=== PATIENT | female | born 1935 | race Caucasian/White ===

== ENCOUNTER 2023-09-09 14:28 | Inpatient (IN) | payer MEDICARE, OTHER ==
[~2023-09-09] VITALS: Ht 157.5 cm; Wt 79.4 kg
[2023-09-09] MEDS ORDERED: FERR325T18 PO (15:27)
[2023-09-09] MEDS ORDERED: SENN-109 PO (15:27)
[2023-09-09] MEDS ORDERED: NALT50TA PO (15:27)
[2023-09-09] MEDS ORDERED: CALC-890 PO (15:27)
[2023-09-09] MEDS ORDERED: CYAN500T8 PO (15:27)
[2023-09-09] MEDS ORDERED: APIX5TAB PO (15:27)
[2023-09-09] MEDS ORDERED: ACET325T38 PO (15:27)
[2023-09-09] MEDS ORDERED: POLY17PO6 PO (15:27)
[2023-09-09] MEDS ORDERED: POTA-160 PO (15:27)
[2023-09-09] MEDS ORDERED: VALS320T15 PO (15:27)
[2023-09-09] MEDS ORDERED: PHEN1SUP92 RC (15:27)
[2023-09-09] MEDS ORDERED: UBID10CA5 PO (15:27)
[2023-09-09] MEDS ORDERED: DILT180C67 PO (15:27)
[2023-09-09] MEDS ORDERED: CETI10TA17 PO (15:27)
[2023-09-09] MEDS ORDERED: FAMO20TA5 PO (15:27)
[2023-09-09] MEDS ORDERED: OMAL150S SQ (15:27)
[2023-09-09] MEDS ORDERED: DAPA10TA PO (15:27)
[2023-09-09] MEDS ORDERED: TR1C15 TP (15:27)
[2023-09-09] MEDS ORDERED: ALLO100T PO (15:27)
[2023-09-09] MEDS ORDERED: OXYC5TAB PO (15:27)
[2023-09-09 16:40] VITALS: BP 123/65
[2023-09-09] MEDS ORDERED: ONDANSETRON 4 MG ORAL DISSOLVE TABLET PO PRN (17:30)
[2023-09-09] MEDS ORDERED: DOCUSATE SODIUM 100 MG CAPSULE PO PRN (17:30)
[2023-09-09] MEDS ORDERED: PHENYLEPHRINE RC PRN (17:30)
[2023-09-09] MEDS ORDERED: [UNRECOGNIZED DRUG - OTHER] RC PRN (17:30)
[2023-09-09] MEDS ORDERED: ALPRAZolam 0.25 MG TABLET PO PRN (17:30)
[2023-09-09] MEDS ORDERED: LOPERAMIDE 2 MG CAPSULE PO PRN (17:30)
[2023-09-09] MEDS ORDERED: ACETAMINOPHEN 325 MG TABLET PO PRN (17:30)
[2023-09-09] MEDS ORDERED: Sodium Phosphate/Sodium Biphosphate ADULT enema PR PRN (17:30)
[2023-09-09] MEDS ORDERED: CALCIUM CARBONATE 500 MG CHEW TABLET PO PRN (17:30)
[2023-09-09] MEDS ORDERED: BISACODYL 10 MG SUPPOSITORY PR PRN (17:30)
[2023-09-09] MEDS ORDERED: LACTULOSE SYRUP 10GM/15ML 30ML UDC PO PRN (17:30)
[2023-09-09] MEDS ORDERED: guaiFENesin/CODEINE 10ML UDC PO PRN (17:30)
[2023-09-09] MEDS ORDERED: OMALIZUMAB SQ SCH (17:30)
[2023-09-09] MEDS ORDERED: MELATONIN 3 MG TABLET PO PRN (17:30)
--- NOTE | 2023-09-09 17:30 | PM&R Post Admission Assessment ---
PM&R HP Date of Visit: Sep 09, 2023 Time of Visit: 17:30 History of Present Illness CC: C2 lateral mass fracture with left acetabular fracture sustained in a fall at [facility] HPI: This is an 87yoWF who presents from [facility] in [place] in need of aggressive rehab to regain independence. She sustained a fall at the [facility] when her walker was caught on the carpet but was able to eat her dinner without difficulty but then she as unable to ambulate the next day due to unable to left her left leg. ER assessed her to have a C2 lateral mass fracture and left acetabular fracture. NSG consulted and no surgical management required and [place] collar placed and no surgical option for the acetabular fracture. She lives in [place] at [place]. Currently her pain is controlled and her son is at the bedside. Her PCP is Dr Gonzalez and Supervisor [facility] Department is Dr Pacheco. PLOF using walker and independent. [facility] note: Follow-up &Outstanding Issues/Tests: 1. Follow-up withNeurosurgery in 2-3 weeks. 2. Follow up with the Orthopedic Service in 2-3 weeks. 3. Follow up with your primary care provider in 1-2 weeks. Hospital Course:[address] Radha singh is a [address] 87 [address] femaleArial 5b who was admitted to [facility] on [place] [address] and found to have a principle diagnosis of ground level fall.Her walker caught on carpet at the [facility] and she fell. She initially thought she had no injuries, and proceeded to eat at the restaurant. After leaving, she ambulated to the car, but was unable to get in due to the left hip pain.No LOC or other complaints of pain. She is on Eliquis for a "leaky" heart valve. Workup in the ED showed a C2 body fracture, and a left acetabular fracture. Problems Addressed (Secondary Diagnoses): [address] Active Hospital Problems Diagnosis ? (HFpEF) heart failure with preserved ejection fraction ? C2 cervical fracture ? Closed fracture of left acetabulum ? Ground-level fall ? Type 2 diabetes mellitus without complication, without long-term current use of insulin ? Stage 3b chronic kidney disease ? Hyperlipidemia ? Persistent atrial fibrillation ? Gout tophi ? Primary hypertension Resolved Hospital Problems No resolved problems to display. [address] Hospital Course: 09/08/2023: Admitted. Worked with PT/OT. Neurosurgery evaluated. 09/09/2023: No acute events overnight. Pt c/o neck pain and left hip pain. States current analgesic regimen helping with pain. Physical Exam: General appearance:alert, in no distress, appears stated age Eyes:conjunctivae/corneas clear. PERRL, EOM's intact. Lungs:clear to auscultation bilaterally, normal respiratory effort Heart:irregular rate and rhythm. No murmur. No JVD. Abdomen:Soft, non-tender. Bowel sounds normal. No masses, no organomegaly. Extremities:extremities normal, atraumatic, no cyanosis. 2+ pulses. Moves all extremities equally, no edema, redness or tenderness in the calves or thighs, normal strength, normal tone. 1+ edema BLE. Skin:Skin color, texture, turgor normal. No rashes or lesions Neurologic:Grossly normal [address] Assessment/Plan: Neuro:C2 lateral mass fracture with possible vertebral artery flap - right - Appreciate Neurosurgery assistance - continue [place] collar. Follow up with Neurosurgeryin 2-3 weeks - no indication for surgical intervention - Eliquis - resumedhome dose CV:Afib - on Eliquis and Diltiazem -continue meds Pulmonary:no current issues andmobilize, cough and deep breathe GI/Nutrition:diabetic diet :UOP adequate Fluids/electrolytes:Renal function stable. Electrolytes stable Heme:Anemia -stable. - no overt s/s blood loss - monitor Endo:DM type II -continue meds ID:Leukocytosis - reactionary - remains afebrile. Down-trendings Musculoskeletal:left acetabular fracture (low anterior column) and inferior pubic ramus fx - Evaluated by Ortho - no surgical intervention - weight bearing as tolerated - follow up with Stanley Perla, Orthopedic PA, in 2-3 weeks. MEDICATIONS Prior to admission: Prescriptions Prior to Admission [address] Medications Prior to Admission Medication Sig Dispense Refill Last Dose ? Eliquis 5 mg tablet TAKE 1 TABLET(5 MG) BY MOUTH TWICE DAILY 180 Tablet 3 ? ferrous sulfate 325 mg (65 mg iron) tablet Take 325 mg by mouth daily. ? oxyCODONE IR (OXY-IR) 5 mg Capsule Take by mouth every 6 hours as needed for Pain. ? PE-Shark Liver Oil-[place] Buttr (PREPARATION H) 0.25-3 % Suppository Insert 1 Suppository by rectum 4 times daily as needed for Hemorrhoids. ? metoprolol tartrate (LOPRESSOR) 25 mg tablet Take 1 Tablet (25 mg) by mouth 2 times daily. 180 Tablet 1 ? Xolair 150 mg/mL Syringe Inject 2 mL (300 mg) by subcutaneous injection every 30 days. 2 mL 1 ? cyanocobalamin (vit B-12) 500 mcg tablet Take 2,000 mcg by mouth daily. ? cetirizine 10 mg tablet Take 10 mg by mouth daily. ? naltrexone (DEPADE) 50 mg tablet TAKE 1/4 TABLET BY MOUTH DAILY ? valsartan (DIOVAN) 320 mg tablet TAKE 1 TABLET(320 MG) BY MOUTH DAILY 90 Tablet 1 ? blood sugar diagnostic (Blood Glucose Test) Strip Pt to test glucose 2 times a day. REQUEST FOR ONE TOUCH VERIO ORPLEASE DISPENSE WHAT INSURANCE WILL COVER 200 Strip 2 ? dapagliflozin (Farxiga) 10 mg Tablet Take 1 Tablet (10 mg) by mouth daily. 30 Tablet 0 ? triamcinolone acetonide (KENALOG) 0.1 % Cream Apply to affected area 2 times daily. 453 Gram 1 ? potassium chloride (KLOR-CON) 10 mEq Extended Release tablet Take 2 Tablets (20 mEq) by mouth daily with breakfast. 90 Tablet 3 ? coenzyme Q10 Capsule Take 10 mg by mouth daily. ? Blood-Glucose Meter PLEASE DISPENSE WHAT INSURANCE WILL COVER 1 Each 0 ? calcium citrate/vitamin D3 (CALCIUM CITRATE + D ORAL) Take 500 mg by mouth. ? lancets 30 gauge 1 [place] [facility]; Combo Route) route daily E11.65. 100 Each 1 [place] Discharge medications and new prescriptions: [place] Medication List START taking these medications foipytcrmcgra492 mg tablet Commonly known as: TYLENOL Take 2 Tablets (650 mg) by mouth every 6 hours. Signed by: Dr. Danny Malik MD Refills: 0 ikvbhazaioQ734 mg tablet Commonly known as: ZYLOPRIM Take 1 Tablet (100 mg) by mouth daily after breakfast. Start taking on: September 10, 2023 Signed by: Dr. Danny Malik MD Quantity: 15 Tablet Refills: 0 [id number] mg Controlled Delivery 24 hour capsule Commonly known as: CARDIZEM CD Take 1 Capsule (180 mg) by mouth daily. Start taking on: September 10, 2023 Signed by: Dr. Danny Malik MD Refills: 1 efdcgismzt28 mg tablet Commonly known as: PEPCID Take 1 Tablet (20 mg) by mouth daily. Start taking on: September 10, 2023 Signed by: Dr. Danny Malik MD Refills: 0 oxyCODONE5 mg tablet Commonly known as: ROXICODONE Take 1 Tablet (5 mg) by mouth every 4 hours as needed for Pain, Moderate. Max Daily Amount: 30 mg Signed by: Dr. Danny Malik MD Quantity: 20 Tablet Refills: 0 Replaces: oxyCODONE IR 5 mg Capsule polyethylene fpyrck56 gram Powder in Packet Commonly known as: MIRALAX Take 1 Packet (17 Grams) by mouth 1 time daily as needed for Constipation. Signed by: Dr. Danny Malik MD Refills: 0 sennosides-docusate sodium8.6-50 mg tablet Commonly known as: SENNA-S Take 1 Tablet by mouth 2 times daily. Signed by: Dr. Danny Malik MD Refills: 0 CONTINUE taking these medications blood sugar diagnosticStrip Commonly known as: Blood Glucose Test Pt to test glucose 2 times a day. REQUEST FOR ONE TOUCH VERIO ORPLEASE DISPENSE WHAT INSURANCE WILL COVER Signed by: Dr. José Gonzalez DO Quantity: 200 Strip Refills: 2 Blood-Glucose Meter PLEASE DISPENSE WHAT INSURANCE WILL COVER Signed by: Dr. José Gonzalez DO Quantity: 1 Each Refills: 0 CALCIUM CITRATE + D ORAL Take 500 mg by mouth. Refills: 0 btwscwnxac40 mg tablet Commonly known as: ZyrTEC Take 10 mg by mouth daily. Refills: 0 coenzyme F30Aozzegt Take 10 mg by mouth daily. Refills: 0 swvqffqylgoldo439 mcg tablet Commonly known as: VITAMIN B-12 Take 2,000 mcg by mouth daily. Refills: 0 dapagliflozin fobrbygjvuu26 mg Tablet Commonly known as: Farxiga Take 1 Tablet (10 mg) by mouth daily. Signed by: Radha Partida NP Quantity: 30 Tablet Refills: 0 Eliquis5 mg tablet TAKE 1 TABLET(5 MG) BY MOUTH TWICE DAILY Signed by: Dr. Cleveland Pacheco MD Quantity: 180 Tablet Refills: 3 Generic drug: apixaban ferrous otfviwf965 mg (65 mg iron) tablet Take 325 mg by mouth daily. Refills: 0 enwudzo89 gauge 1 Stick by [facility]Non-Drug; Combo Route) route daily E11.65. Signed by: Dr. José Gonzalez DO Quantity: 100 Each Refills: 1 scwvetxxwt86 mg tablet Commonly known as: DEPADE TAKE 1/4 TABLET BY MOUTH DAILY Refills: 0 PE-Shark Liver Oil-[place] Buttr0.25-3 % Suppository Commonly known as: PREPARATION H Insert 1 Suppository by rectum 4 times daily as needed for Hemorrhoids. Refills: 0 potassium mEq Extended Release tablet Commonly known as: KLOR-CON Take 2 Tablets (20 mEq) by mouth daily with breakfast. Signed by: Radha Partida NP Quantity: 90 Tablet Refills: 3 triamcinolone acetonide0.1 % Cream Commonly known as: KENALOG Apply to affected area 2 times daily. Signed by: Dr. José Gonzalez DO Quantity: 453 Gram Refills: 1 leepphbrk766 mg tablet Commonly known as: DIOVAN TAKE 1 TABLET(320 MG) BY MOUTH DAILY Signed by: Dr. José Gonzalez DO Quantity: 90 Tablet Refills: 1 Xaraka224 mg/mL Syringe Inject 2 mL (300 mg) by subcutaneous injection every 30 days. Signed by: Dr. José Gonzalez DO Quantity: 2 mL Refills: 1 Generic drug: omalizumab STOP taking these medications metoprolol arqcukgb35 mg tablet Commonly known as: LOPRESSOR oxyCODONE IR5 mg Capsule Commonly known as: OXY-IR Replaced by: oxyCODONE 5 mg tablet Where to Get Your Medications Information about where to get these medications is not yet available Ask your nurse or doctor about these medications acetaminophen 325 mg tablet allopurinoL 100 mg tablet diltiaZEM 180 mg Controlled Delivery 24 hour capsule famotidine 20 mg tablet oxyCODONE 5 mg tablet polyethylene glycol 17 gram Powder in Packet sennosides-docusate sodium 8.6-50 mg tablet [place] singh Discharged Condition:[place] stable Disposition:[facility] Patient Instructions: Activity:activity as tolerated and no liftingmore than 2 pounds,driving, orstrenuous exercise for4 weeks. Diet is:[place] DIET DIABETIC Signed: Cheko Humphreys DNPArial 5b 09/09/2023ricooper 5b ,[place] 2:23 PM This discharge tookArial 5b less than 30 minutes of time to prepare Past Ilrkzvf-Pirzhz-Lmlatg Hx Past Med/Social Hx: Reviewed Nursing Past Med/Soc Hx, Reviewed and Corrections made Patient Social History Marrital Status: single Employed/Student: retired Alcohol Use: Denies Use Smoking Status: Never a Smoker Past Medical History Cardiac: Atrial Fibrillation, Chronic Edema/Swelling, Coronary Artery Disease, Heart Murmur, High Cholesterol, Peripheral Vascular Genitourinary: Bladder Infection, Renal Failure PM&R Allergy/Meds/Data Review Allergies Coded Allergies: Penicillins (Verified Allergy, Unknown, hives, 09/09/23) Fxhwaff-XYN-HeT Reductase Inhibitor (Verified Allergy, Unknown, muscle pain, 09/09/23) cephalexin (Verified Allergy, Unknown, hives, rash, 09/09/23) Home Medications Scheduled Acetaminophen (Tylenol), 650 MG PO Q6H, (Reported) Allopurinol (Allopurinol), 100 MG PO DAILY, (Reported) Apixaban (Eliquis), 5 MG PO BID, (Reported) Calcium Citrate/Vitamin D3 (Calcium Citrate-Vit D3 Tablet), 1 EACH PO DAILY, (Reported) Cetirizine HCl (Cetirizine HCl), 10 MG PO DAILY, (Reported) Cyanocobalamin (Vitamin B-12) (Vitamin B-12), 2,000 MCG PO DAILY, (Reported) Dapagliflozin Propanediol (Farxiga), 10 MG PO DAILY, (Reported) Diltiazem HCl (Cardizem Cd), 180 MG PO DAILY, (Reported) Famotidine (Famotidine), 20 MG PO DAILY, (Reported) Ferrous Sulfate (Ferrous Sulfate), 325 MG PO DAILY, (Reported) Naltrexone HCl (Naltrexone HCl), 12.5 MG PO DAILY, (Reported) Omalizumab (Xolair), 300 MG SQ EVERY 30 DAYS, (Reported) Potassium Chloride (Klor-Con 10), 20 MEQ PO DAILY, (Reported) Sennosides/Docusate Sodium (Senna-S Tablet), 1 EACH PO BID, (Reported) Triamcinolone Acet (Triamcinolone Acetonide 0.1% Cream), 1 APPLIC TP BID, (Reported) Ubidecarenone (Co Q-10), 10 MG PO DAILY, (Reported) Valsartan (Valsartan), 320 MG PO DAILY, (Reported) Scheduled PRN Oxycodone HCl (Oxycodone HCl), 5 MG PO Q4H PRN for PAIN-SEVERE (8-10), (Reported) Phenylephrine HCl/[place] Butter (Preparation H Suppository), 1 EACH RC QID PRN for HEMMORRHOID DISCOMFORT, (Reported) Polyethylene Glycol 3350 (Miralax), 17 GM PO DAILY PRN for CONSTIPATION-2ND LINE, (Reported) Current Medications Current Medications Reviewed Review of Systems Constitutional: see HPI, malaise, weakness EENTM: no symptoms reported Respiratory: no symptoms reported Cardiovascular: no symptoms reported Gastrointestinal: no symptoms reported Genitourinary: no symptoms reported Musculoskeletal: see HPI, joint pain, muscle pain, muscle stiffness, muscle cramps, muscle weakness Skin: no symptoms reported Psychiatric/Neurological: Anxiety All Other Systems Reviewed Negative Unless Noted: Yes Physical Exam Physical Exam Vital Signs Vital Signs - First Documented 09/09/23 16:40 Temp 36.5 Pulse 94 Resp 20 B/P (MAP) 123/65 (84) Pulse Ox 93 O2 Delivery Room Air Capillary Refill : Height, Weight, BMI Height: '" Weight: lbs. oz. kg; BMI Method: General Appearance: No Apparent Distress, WD/WN, Chronically ill, Thin, Other (frail, aspien collar in place) Eyes: Bilateral Eye Normal Inspection, Bilateral Eye PERRL HEENT: PERRL/EOMI, Normal ENT Inspection, Pharynx Normal Neck: Full Range of Motion, Normal Inspection, Non Tender, Supple, Carotid Bruit Respiratory: Chest Non Tender, Lungs Clear, Normal Breath Sounds, No Accessory Muscle Use, No Respiratory Distress Cardiovascular: No Gallop, No JVD, No Murmur, Normal Peripheral Pulses, Irregularly Irregular Gastrointestinal: Normal Bowel Sounds, No Organomegaly, No Pulsatile Mass, Non Tender, Soft Back: Normal Inspection, No CVA Tenderness, No Vertebral Tenderness Extremity: Normal Capillary Refill, Normal Inspection, Normal Range of Motion (except left leg due to pain), Non Tender, No Calf Tenderness, Pedal Edema Neurologic/Psychiatric: Alert, Oriented x3, Normal Mood/Affect, internal medicine specialist II-XII Norm as Tested, Abnormal Gait, Motor Weakness (left leg) Skin: Normal Color, Warm/Dry, Other (venous stasis of legs) Lymphatic: No Adenopathy PM&R Medical Assessment & Plan REHAB/MEDICAL ASSESSMENT AND PLAN: REHAB IMPAIRMENT GROUP: Status post multiple major fractures ETIOLOGIC DIAGNOSIS: C2 lateral mass fracture, left acetabular fracture, inferior pubic ramus frature The comorbidities that impact the patients function and/or functional outcome by: advanced age, fall risk, C2 fracture in [place] collar, AF, CKD, frail status REHAB PLAN: The patient is being admitted to our comprehensive inpatient rehabilitation facility and can tolerate the intensity of service consisting of at least: 180 minutes of therapy a day, 5 out of 7 days a week Rehab treatment will consist of: PT OT will focus on regaining function with use of AD in order to regain function and independence in order to return back to [place] while preventing falls The patient/family has a good understanding of our discharge process and will benefit from an interdisciplinary inpatient rehabilitation program. The patient has potential to make improvement and is in need of at least two of the following multidisciplinary therapies including but not limited to physical, occupational, speech, and prosthetics and orthotics. Additionally the patient will need services from respiratory, nutritional services, wound care, psychology, etc. (Customize this to each patient). Given the patients complex condition and risk of further medical complications, rehabilitation services cannot be safely or effectively provided at a lower level of care such as a retirement facility. BARRIERS TO DISCHARGE: Frail status with left pelvis pain from fracture limiting ambulation and C2 fracture requiring [place] collar ESTIMATED LOS: 10 days DISPOSITION: [place] RELEVANT CHANGES SINCE PREADMISSION SCREENING: I have compared the patients medical and functional status at the time of the preadmission screening and there are: no changes PROGNOSIS: Good REHABILITATION GOALS: 1. PT OT will focus on regaining function with use of AD in order to regain function and independence in order to return back to [place] while preventing falls All the above goals were reviewed with the patient and he/she is in agreement. By signing this document, I acknowledge that I have personally performed a full physical examination on this patient within 24 hours of admission to this inpatient rehabilitation facility and have determined the patient to be able to tolerate the above course of treatment at an intensive level for a reasonable period of time. I will be completing a detailed individualized Plan of Care for this patient by day #4 of the patients stay based upon the Preadmission Screen, the Post-Admission Evaluation, and the therapy evaluations. Admission Dx/Comorbidities: (1) Closed C2 fracture ICD Codes: S12.100A - Unspecified displaced fracture of second cervical vertebra, initial encounter for closed fracture Assessment/Plan Assessment and Plan Assess & Plan/Chief Complaint Assessment: C2 lateral mass fracture non-surgical type placed in [place] collar Left acetabular fracture non-surgical type Inferior ramus fracture AF OAC Advanced age CKD HTN HLP Fall risk CHFpEF Plan: PT OT Pain control BM regimen Monitor closely JULIÁN ALFREDO DO Sep 09, 2023 17:30
[2023-09-09] MEDS: ACETAMINOPHEN 325 MG TABLET PO SCH ×2 (18:11→23:42)
[2023-09-09 20:48] VITALS: BP 116/63
[2023-09-09] MEDS ORDERED: SENNA W/DOCUSATE TABLET PO SCH (21:00)
[2023-09-09] MEDS: DOCUSATE SODIUM 100 MG CAPSULE PO SCH (21:15)
[2023-09-09] MEDS: APIXABAN 5 MG TABLET PO SCH (21:15)
[2023-09-09] MEDS: SENNA W/DOCUSATE TABLET PO SCH (21:15)
[2023-09-09] MEDS: TRIAMCINOLONE 0.1% CR (KENALOG) 15 GM TUBE TP SCH (21:16)
--- NOTE | 2023-09-10 05:10 | PM&R Progress Note ---
Subjective HPI/CC On Admission Date Seen by Provider: Sep 10, 2023 Time Seen by Provider: 12:45 Subjective/Events-last exam 09/10/2023: Patient doing well Moving slowly Pain is controlled Reviewed labs and meds No other concerns Review of Systems General: Fatigue, Malaise Musculoskeletal: neck pain, leg pain Objective Exam Vital Signs Vital Signs Date Time Temp Pulse Resp B/P (MAP) Pulse Ox O2 Delivery O2 Flow Rate FiO2 09/10/23 20:53 36.7 103 16 141/69 (93) 93 Room Air Capillary Refill : General Appearance: No Apparent Distress, WD/WN, Chronically ill, Thin, Other (frail, aspien collar in place) HEENT: PERRL/EOMI, Normal ENT Inspection, Pharynx Normal Neck: Full Range of Motion, Normal Inspection, Non Tender, Supple, Carotid Bruit Respiratory: Chest Non Tender, Lungs Clear, Normal Breath Sounds, No Accessory Muscle Use, No Respiratory Distress Cardiovascular: No Gallop, No JVD, No Murmur, Normal Peripheral Pulses, Irregularly Irregular Gastrointestinal: Normal Bowel Sounds, No Organomegaly, No Pulsatile Mass, Non Tender, Soft Back: Normal Inspection, No CVA Tenderness, No Vertebral Tenderness Extremity: Normal Capillary Refill, Normal Inspection, Normal Range of Motion (except left leg due to pain), Non Tender, No Calf Tenderness, Pedal Edema Neurologic/Psychiatric: Alert, Oriented x3, Normal Mood/Affect, equipment superintendent II-XII Norm as Tested, Abnormal Gait, Motor Weakness (left leg) Skin: Normal Color, Warm/Dry, Other (venous stasis of legs) Lymphatic: No Adenopathy Results/Procedures Lab Laboratory Tests 09/10/23 07:05 Patient resulted labs reviewed. FIM Transfers Therapy Code Descriptions/Definitions Functional [place] Measure: 0=Not Assessed/NA 4=Minimal Assistance 1=Total Assistance 5=Supervision or Setup 2=Maximal Assistance 6=Modified [place] 3=Moderate Assistance 7=Complete IndependenceSCALE: Activities may be completed with or without assistive devices. 6-Jrrwfqymoo-hgudiyt completes the activity by him/herself with no assistance from a helper. 5-Set-up or Clean-up Assistance-helper sets up or cleans up; patient completes activity. [place] assists only prior to or following the activity. 4-Supervision or Touching Assistance-helper provides verbal cues and/or touching/steadying and/or contact guard assistance as patient completes activity. Assistance may be provided throughout the activity or intermittently. 3-Partial/Moderate Assistance-helper does LESS THAN HALF the effort. [place] lifts, holds or supports trunk or limbs, but provides less than half the effort. 2-Substantial/Maximal Assistance-helper does MORE THAN HALF the effort. [place] lifts or holds trunk or limbs and provides more than half the effort. 3-Miohwupqu-vvzeou does ALL the effort. Patient does none of the effort to complete the activity. Or, the assistance of 2 or more helpers is required for the patient to complete the activity. If activity was not attempted, code reason: 7-Patient Refused. 9-Not Applicable-not attempted and the patient did not perform the activity before the current illness, exacerbation or injury. 10-Not Attempted due to Environmental Limitations-(lack of equipment, weather restraints, etc.). 88-Not Attempted due to Medical Conditions or Safety Concerns. Assessment/Plan Assessment and Plan Assess & Plan/Chief Complaint Assessment: C2 lateral mass fracture non-surgical type placed in [place] collar Left acetabular fracture non-surgical type Inferior ramus fracture AF OAC Advanced age CKD HTN HLP Fall risk CHFpEF Plan: PT OT Pain control BM regimen Monitor closely 09/10/2023: Supportive [facility] meds Pain control (1) Closed C2 fracture JULIÁN ALFREDO DO Sep 10, 2023 05:10
[2023-09-10] MEDS: ACETAMINOPHEN 325 MG TABLET PO SCH ×4 (05:40→23:47)
[2023-09-10] MEDS: CALCIUM CARBONATE 600 MG +VITAMIN D TABLET PO SCH (06:32)
[2023-09-10] MEDS: POTASSIUM CHLORIDE 10 MEQ TABLET PO SCH (06:32)
[2023-09-10] MEDS: CYANOCOBALAMIN 1,000 MCG TABLET PO SCH (06:33)
[2023-09-10 07:29] LABS: BASOPHILS # (AUTO) 0.2 10^3/uL (0.0-0.1); BASOPHILS % (AUTO) 2 % (0-10); EOSINOPHILS # (AUTO) 1.2 10^3/uL (0.0-0.3); EOSINOPHILS % (AUTO) 14 % (0-10); HEMATOCRIT 30 % (35-52); HEMOGLOBIN 9.4 g/dL (11.5-16.0); LYMPHOCYTES # (AUTO) 0.8 10^3/uL (1.0-4.0); LYMPHOCYTES % (AUTO) 9 % (12-44); MEAN CORPUSCULAR HEMOGLOBIN 31 pg (25-34); MEAN CORPUSCULAR HGB CONC 31 g/dL (32-36); MEAN CORPUSCULAR VOLUME 99 fL (80-99); MEAN PLATELET VOLUME 10.8 fL (9.0-12.2); MONOCYTES # (AUTO) 0.9 10^3/uL (0.0-1.0); MONOCYTES % (AUTO) 10 % (0-12); NEUTROPHILS # (AUTO) 5.7 10^3/uL (1.8-7.8); NEUTROPHILS % (AUTO) 64 % (42-75); PLATELET COUNT 437 10^3/uL (130-400); WHITE BLOOD COUNT 8.9 10^3/uL (4.3-11.0)
[2023-09-10 07:42] LABS: ALBUMIN 3.4 GM/DL (3.2-4.5); POTASSIUM 3.6 MMOL/L (3.6-5.0)
[2023-09-10 07:43] LABS: CALCIUM 8.8 MG/DL (8.5-10.1)
[2023-09-10 07:45] LABS: TOTAL PROTEIN 6.8 GM/DL (6.4-8.2)
[2023-09-10 07:46] LABS: BILIRUBIN,TOTAL 0.9 MG/DL (0.1-1.0)
[2023-09-10 07:48] LABS: CREATININE SERUM 1.26 MG/DL (0.60-1.30)
[2023-09-10 08:00] VITALS: BP 130/72
[2023-09-10 08:05] LABS: ANISOCYTOSIS MODERATE; BAND NEUTROPHILS 3 %; BASOPHILS % (MANUAL) 0 %; EOSINOPHILS % (MANUAL) 12 %; LYMPHOCYTES % (MANUAL) 8 %; MONOCYTES % (MANUAL) 10 %; NEUTROPHILS % (MANUAL) 67 %; POIKILOCYTOSIS SLIGHT
[2023-09-10] MEDS: oxyCODONE IMMEDIATE RELEASE 5 MG TABLET PO PRN (08:54)
[2023-09-10] MEDS: VALSARTAN 80 MG (DIOVAN) TAB PO SCH (08:54)
[2023-09-10] MEDS: FERROUS SULFATE 325 MG (IRON) TABLET PO SCH (08:55)
[2023-09-10] MEDS: dilTIAZem ER 180 MG CAPSULE PO SCH (08:55)
[2023-09-10] MEDS: ALLOPURINOL 100 MG TABLET PO SCH (08:55)
[2023-09-10] MEDS: NALTREXONE 50 MG TABLET PO SCH (08:55)
[2023-09-10] MEDS: APIXABAN 5 MG TABLET PO SCH ×2 (08:55→20:51)
[2023-09-10] MEDS: FAMOTIDINE 20 MG TABLET PO SCH (08:56)
[2023-09-10] MEDS: EMPAGLIFLOZIN 10 MG TABLET PO SCH (08:56)
[2023-09-10] MEDS: DOCUSATE SODIUM 100 MG CAPSULE PO SCH ×2 (08:56→20:12)
[2023-09-10] MEDS: LORATADINE 10 MG TABLET PO SCH (08:56)
[2023-09-10] MEDS: SENNA W/DOCUSATE TABLET PO SCH ×2 (08:56→20:12)
[2023-09-10] MEDS ORDERED: NON-FORMULARY MEDICATION 1 EA EA (Cetirizine HCl 10 MG) PO SCH (09:00)
[2023-09-10] MEDS ORDERED: VITAMIN D3 PO SCH (09:00)
[2023-09-10] MEDS ORDERED: NON-FORMULARY MEDICATION 1 EA EA (Valsartan 320 MG) PO SCH (09:00)
[2023-09-10] MEDS ORDERED: CALCIUM CITRATE PO SCH (09:00)
[2023-09-10] MEDS ORDERED: [UNRECOGNIZED DRUG - OTHER] PO SCH (09:00)
[2023-09-10] MEDS ORDERED: UBIDECARENONE 10 MG PO SCH (09:00)
[2023-09-10] MEDS ORDERED: NON-FORMULARY MEDICATION 1 EA EA (Dapagliflozin Propanediol (Farxiga) 10 MG) PO SCH (09:00)
[2023-09-10] MEDS ORDERED: NON-FORMULARY MEDICATION 1 EA EA (Cyanocobalamin (Vitamin B-12) (Vitamin B-12) 2,000 MCG) PO SCH (09:00)
[2023-09-10] MEDS: TRIAMCINOLONE 0.1% CR (KENALOG) 15 GM TUBE TP SCH ×2 (09:02→20:52)
--- NOTE | 2023-09-10 09:07 | Occupational Therapy Eval ---
OT Evaluation-General/PLF Medical Diagnosis Admission Date Sep 09, 2023 at 16:11 Medical Diagnosis: S/P C2 Cervical fx, Lt Acetabular fx Onset Date: Sep 06, 2023 Therapy Diagnosis Therapy Diagnosis: decreased ADL status, weakness Precautions Precautions/Isolations: Fall Prevention, Standard Precautions Comments Cervical precautions: no lifting >2lbs, no pushing/pulling, or strenuous exercise for 4 weeks. No driving. WBAT on LEs. Wear neck collar at all times ( change pads after getting out of the shower; keep head still while pads are being changed) Weight Bear Status Weight Bearing Restriction: Weight Bearing/Tolerated Location Restriction: LE Bilateral Referral Physician: Shahida Referral Reason: Evaluation/Treatment Medical History Additional Medical History T2DM, gout, afib, CKD stage 3, HTN, hyperlipidemia, HFpEF, CAD, arthritis, carotid stenosis, CVD, edema, obesity Current History 09/06/23 ground level fall due to walker getting caught on carpet at restaurant. Pt transferred to ED where imaging revealed C2 lateral mass fx (non-surgical) placed in aspen collar, L acetabular fx (non surgical), and inferior ramus fx (non surgical). Pt transferred to [facility] 09/09/23 Social History Home: Assisted Living ([facility]) Current Living Status: Alone Entry Into Home: Level Entry ADL-Prior Level of Function SCALE: Activities may be completed with or without assistive devices. 8-Uqlregksih-bfgtfuc completes the activity by him/herself with no assistance from a helper. 5-Set-up or Clean-up Assistance-helper sets up or cleans up; patient completes activity. [place] assists only prior to or following the activity. 4-Supervision or Touching Assistance-helper provides verbal cues and/or touching/steadying and/or contact guard assistance as patient completes activity. Assistance may be provided throughout the activity or intermittently. 3-Partial/Moderate Assistance-helper does LESS THAN HALF the effort. [place] lifts, holds or supports trunk or limbs, but provides less than half the effort. 2-Substantial/Maximal Assistance-helper does MORE THAN HALF the effort. [place] lifts or holds trunk or limbs and provides more than half the effort. 3-Polilyaum-hgeehr does ALL the effort. Patient does none of the effort to complete the activity. Or, the assistance of 2 or more helpers is required for the patient to complete the activity. If activity was not attempted, code reason: 7-Patient Refused. 9-Not Applicable-not attempted and the patient did not perform the activity before the current illness, exacerbation or injury. 10-Not Attempted due to Environmental Limitations-(lack of equipment, weather restraints, etc.). 88-Not Attempted due to Medical Conditions or Safety Concerns. ADL PLOF Comments Pt reports IND with ADLs and functional mobility at PLOF, using walker. She has lead java software engineer, sock aide, long handled shoe horn, back watershed coordinator, dressing stick, handles by toilet, walk in shower with SC and GBS. She reports having difficulty with washing/drying feet in the shower (typically just lets water run over them), and she is unable to doff/don socks at PLOF. Pt tends to wear slip on house shoes. Self Care: Needed Some Help Functional Cognition: Independent DME/Equipment: Bath Chair, Grab Bars, Reachers, Shower, Shower Hose Beater Out, Sock Aid DME/Equipment Comments walker Leisure Interests: puzzles OT Current Status Subjective Pt agreeable to OT evaluation and tx. Pt reports 5/10 pain in neck Mental Status/Objective Patient Orientation: Person, Place, Time, Situation Attachments: Other-See Comments (c collar) Current Glasses/Contacts: Yes Hearing Aids: No Dentures/Partials: No Hand Dominance: Right Upper Extremity ROM WFL Upper Extremity Coordination WFL Upper Extremity Sensation WFL Upper Extremity Strength grossly 3+/5, not formally tested due to cervical precautions ADL-Treatment Eating (QC): 6 (IND with breakfast) Oral Hygiene (QC): 5 (set up on tray table. Pt able to use cup with straw to rinse mouth) Shower/Bathe Self (QC): 3 (Assistance washing/drying BLEs lower legs/feet.) Upper Body Dressing (QC): 3 (Pt able to don button up shirt with set up. Assistance required with C collar.) Lower Body Dressing (QC): 4 (CGA. Pt able to use dressing stick as needed to thread LEs into pants.) On/Off Footwear (QC): 2 (Pt requires total assistance with gripper socks. SBA with slip on house shoes. Pt doesn't typically wear socks at home.) Toileting Hygiene (QC): 4 (CGA) Other Treatments Pt in recliner eating breakfast, agreeable to OT evaluation and tx. Pt finished breakfast, then completed sponge bath, dressing, and grooming tasks at recliner. Pt able to use dressing stick and lead java software engineer as needed for LBD (pt has AE at home). Pt required CGA for sit to/from stand transfers throughout session. OT provided pt with long handled sponge and extra cervical collar pads for planned shower tomorrow. AE provided for pt to utilize while in hospital (lead java software engineer, dressing stick, long handled shoe horn). Education provided on pt's current cervical precautions, she verbalized understanding. Post tx, pt in recliner, call light in reach and all needs met. Education OT Patient Education: Correct positioning, Energy conservation, Modified ADL techniques, Progress toward Goal/Update tx plan, Purpose of tx/functional activities, Reviewed precautions, Rehab process, Safety issues, Transfer techniques, Use of adapted equipment Teaching Recipient: Patient Teaching Methods: Discussion Response to Teaching: Verbalize Understanding BIMS CAM BIMS Expression of Ideas and Wants: Without Difficulty Understanding Verbal Content: Understands Brief Interview/Mental Status: Yes IRF BRITTNY BIMS: IRF BRITTNY BIMS Response (Comments) Value Repitition of Three Words Three 3 Recalls Socks Yes, No Cue Required 2 Recalls Blue Yes, No Cue Required 2 Recalls Bed Yes, No Cue Required 2 Year Correct 3 Month Missed by 6 Days/1 Month (August) 1 Day Correct 1 Total 14 Should Staff Asses. Mental St.: No CAM Mental Status Change/Baseline: 0 Inattention: 0 Disorganized thinkin Altered level of consciousness: 0 OT Short Term Goals Short Term Goals Time Frame: Sep 17, 2023 Shower/bathe self: 4 Putting on/taking off footwear: 4 OT Promotional Demonstrator Goals Promotional Demonstrator Goals Time Frame: Sep 26, 2023 Eating (QC): 6 Oral Hygiene (QC): 6 Toileting Hygiene (QC): 6 Shower/Bathe Self (QC): 6 Upper Body Dressing (QC): 6 Lower Body Dressing (QC): 6 On/Off Footwear (QC): 6 (slip on shoes only) Additional Goals: 1-Demonstrate ADL Tasks, 2-Verbalize Understanding, 3- ImproveStrength/Khadar 1=Demonstrate adherence to instructed precautions during ADL tasks. 2=Patient will verbalize/demonstrate understanding of assistive devices/modifications for ADL. 3=Patient will improve strength/tolerance for activity to enable patient to perform ADL's. OT Education/Plan Problem List/Assessment Assessment: Decreased Activ Tolerance, Decreased UE Strength, Impaired Funct Balance, Impaired I ADL's, Impaired Self-Care Skills Discharge Recommendations Plan/Recommendations: Continue POC Comment Pt may require assistance with changing pads on C collar after a shower, pt indicates staff at [facility] are able to assist with this if needed. Treatment Plan/Plan of Care Patient would benefit from OT for education, treatment and training to promote independence in ADL's, mobility, safety and/or upper extremity function for ADL's. Plan of Care: ADL Retraining, Functional Mobility, Group Exercise/Act as Ind, UE Funct Exercise/Act Treatment Duration: Sep 26, 2023 Frequency: At least 5 of 7 days/Wk (IRF) Estimated Hrs Per Day: 1.5 hours per day Agreement: Yes Rehab Potential: Good Time Start Time: 07:30 Stop Time: 09:00 DATE: Sep 10, 2023 Total Time Billed (hr/min): 90 Billed Treatment Time 1, EVM (15'), ADL 5 (75') COLIN FRIEND OT Sep 10, 2023 09:07
--- NOTE | 2023-09-10 09:47 | Physical Therapy Evaluation ---
PT Evaluation-General Medical Diagnosis Admission Date Sep 09, 2023 at 16:11 Medical Diagnosis: S/P C2 Cervical fx, Lt Acetabular fx Onset Date: Sep 06, 2023 Therapy Diagnosis Therapy Diagnosis: Weakness, Decreased functional mobility Precautions Precautions/Isolations: Fall Prevention, Standard Precautions Weight Bear Status Right Lower Extremity: Right Weight Bearing/Tolerated Left Lower Extremity: Left Weight Bearing/Tolerated Cervical precautions: no lifting >2lbs, no pushing/pulling, or strenuous exercise for 4 weeks. No driving. WBAT on LEs. Wear neck collar at all times (change pads after getting out of the shower; keep head still while pads are being changed) Referral Physician: Shahida Reason for Referral: Evaluation/Treatment Medical History Pertinent Medical History: CAD, DM, HTN Additional Medical History CKD stage 3, DM II, A-Fib, Gout, HTN, hyperlipidemia, arthritis, CAD, carotid stenosis, CVD, edema, obesity, DVD Current History 09/06/23 ground level fall due to walker getting caught on carpet at restaurant. Pt transferred to ED where imaging revealed C2 lateral mass fx (non-surgical) placed in aspen collar, L acetabular fx (non surgical), and inferior ramus fx (non surgical). Pt transferred to [facility] 09/09/23 Reviewed History: Yes Social History Home: Assisted Living ([facility]) Current Living Status: Alone Entry Into Home: Level Entry PT Steps Into Home: 0 PT Steps Inside Home: 0 Pt lives in an LONGTERM with level entry. Walk-in shower, bench, GBs, BSC over toilet with handles Prior Prior Level of Function SCALE: Activities may be completed with or without assistive devices. 7-Qokekwxatq-dgnwwzf completes the activity by him/herself with no assistance from a helper. 5-Set-up or Clean-up Assistance-helper sets up or cleans up; patient completes activity. [place] assists only prior to or following the activity. 4-Supervision or Touching Assistance-helper provides verbal cues and/or touching/steadying and/or contact guard assistance as patient completes activity. Assistance may be provided throughout the activity or intermittently. 3-Partial/Moderate Assistance-helper does LESS THAN HALF the effort. [place] lifts, holds or supports trunk or limbs, but provides less than half the effort. 2-Substantial/Maximal Assistance-helper does MORE THAN HALF the effort. [place] lifts or holds trunk or limbs and provides more than half the effort. 8-Mtlzlghxp-osbgbm does ALL the effort. Patient does none of the effort to complete the activity. Or, the assistance of 2 or more helpers is required for the patient to complete the activity. If activity was not attempted, code reason: 7-Patient Refused. 9-Not Applicable-not attempted and the patient did not perform the activity before the current illness, exacerbation or injury. 10-Not Attempted due to Environmental Limitations-(lack of equipment, weather restraints, etc.). 88-Not Attempted due to Medical Conditions or Safety Concerns. Bed Mobility: 6 Transfers (B,C,W/C): 6 Gait: 6 Stairs: 9 Wheelchair Mobility: 9 Indoor Mobility (Ambulation): Independent Stairs: Not Applicalbe Prior Devices Use: Mechanical lift (lift chair ), Walker Prior Device Use: 3WW At PLOF, pt was Ind with the 3WW; not driving; has a 3WW, FWW Pt did not negotiate stairs at PLOF PT Evaluation-Current Subjective Pt is agreeable to PT eval. Pt reported neck pain 5/10. Pain Numeric Pain Scale: 5-Moderate Pain Location Body Site: Neck Section J - Health Conditions 1. Rarely or not at all 2. Occasionally 3. Frequently 4. Almost constantly 8. Unable to answer Pain Effect on Sleep: 2 Pain Interference with Therapy: 3 Pain Interference w/Day-to-Day: 3 Pt/Family Goals Safely return home Objective Patient Orientation: Person, Place, Time, Situation C-collar ROM/Strength ROM Upper Extremities See OT eval ROM Lower Extremities R LE ROM = WFL L LE ROM = limited due to pain Strength Upper Extremities See OT eval Strength Lower Extremities R LE MMT = 3+/5 grossly L LE MMT = 3-/5 grossly secondary to pain Integumentary/Posture Integumentary See nurses note Bowel Incontinence: No Bladder Incontinence: Yes Sensory Vision: Wears Glasses Hearing: Functional Hand Dominance: Right Sensation Right Upper Extremit: Intact Sensation Left Upper Extremity: Intact Sensation Right Lower Extremit: Intact Sensation Left Lower Extremity: Intact Transfers Roll Left & Right (QC): 3 (Min A ) Sit to Lying (QC): 3 (Min A ) Lying to Sitting/Side of Bed(Q: 3 (Min A ) Sit to Stand (QC): 4 (CGA ) Chair/Xuo-ev-Bvyba Xfer(QC): 4 (CGA ) Toilet Transfer (QC): 4 (CGA ) Car Transfer (QC): 3 (Min A ) Gait Does the Patient Walk?: Yes Mode of Locomotion: Walk Anticipated Mode of Locomotion: Walk Walk 10 feet (QC): 4 (CGA ) Walk 50 ft with 2 Turns(QC): 4 (CGA ) Walk 150 ft (QC): 88 (Pain, weakness, endurance ) Walking 10ft/uneven surface-QC: 4 (CGA ) Gait Assistive Device: FWW Wheelchair Training Does the Pt Use a Wheelchair?: No Wheel 50 ft with 2 turns (QC): 9 Wheel 150 ft (QC): 9 Type of Wheelchair: N/A Stairs #of Steps: 1 1 Step (curb) (QC): 3 (Min A ) 4 Steps (QC): 88 (Pain, weakness) 12 Steps (QC): 88 (Pain, weakness) Walking Assistive Device: Walker Balance Sitting Static: Good Sitting Dynamic: Good Standing Static: Fair Standing Dynamic: Fair Picking up an Object (QC): 4 (CGA with temporary staff accountant ) Special Test Comments KU standing balance scale = 3/5 (goal = 4/5) Treatment PT eval completed. Pt completed bed mobility tasks with Min A. Pt completed functional transfers with CGA, besides requiring Min/Mod A for car transfer. Pt ambulated 60ft with the FWW and CGA. Pt was very guarded and required extended time to complete all tasks on this date. After treatment session, pt was sitting up in the recliner with call light in reach and all needs met. Assessment/Needs Pt tolerated PT well, with good effort Rehab Potential: Good Post Rehab Potential-Barriers: Pain, weakness, endurance Equipment Needs N/A PT Senior Care Goals Vocational Rehabilitation Administrator Goals PT Vocational Rehabilitation Administrator Goals Time Frame: Sep 24, 2023 Roll Left to Right (QC): 6 (Pt will be Mod I with functional mobility ) Sit to Lying (QC): 6 (Pt will be Mod I with functional mobility ) Lying-Sitting on Side/Bed(QC): 6 (Pt will be Mod I with functional mobility ) Sit to Stand (QC): 6 (Pt will be Mod I with functional mobility ) Chair/Zkm-zo-Dombe Xfer(QC): 6 (Pt will be Mod I with functional mobility ) Toilet/Commode Transfer (QC): 6 (Pt will be Mod I with functional mobility ) Car Transfer (QC): 6 (Pt will be Mod I with functional mobility ) Does the Patient Walk: Yes Walk 10 feet (QC): 6 (Pt will be Mod I with functional mobility ) Walk 10ft-Uneven Surface(QC): 6 (Pt will be Mod I with functional mobility ) Walk 50ft with 2 Turns (QC): 6 (Pt will be Mod I with functional mobility ) Walk 150 ft (QC): 6 (Pt will be Mod I with functional mobility ) Does the Pt use WC or Scooter?: No Wheel 50 feet with 2 turns (QC: 9 Type: N/A Wheel 150 feet: 9 Type: N/A 1 Step (curb) (QC): 6 (Pt will be Mod I with functional mobility ) 4 Steps (QC): 6 (Pt will be Mod I with functional mobility ) 12 Steps (QC): 9 (Pt did not do at PLOF) Picking up an Object (QC): 6 (Pt will be Mod I with functional mobility ) KU standing balance goal = 4/5 PT Plan Problem List Problem List: Activity Tolerance, Functional Strength, Safety, Balance, Gait, Transfer, Bed Mobility, ROM Treatment/Plan Treatment Plan: Continue Plan of Care Treatment Plan: Bed Mobility, Education, Functional Activity Khadar, Functional Strength, Group Therapy, Gait, Safety, Therapeutic Exercise, Transfers Treatment Duration: Sep 24, 2023 Frequency: At least 5 of 7 days/Wk (IRF) Estimated Hrs Per Day: 1.5 hours per day Patient and/or Family Agrees t: Yes Safety Risks/Education Patient Education: Gait Training, Transfer Techniques, Steps, Correct Positioning, Safety Issues Teaching Recipient: Patient Teaching Methods: Demonstration, Discussion Response to Teaching: Verbalize Understanding, Return Demonstration, Reinforcement Needed Discharge Recommendations Therapy Discharge Recommendati: Home & Family, Post Acute PT Equpiment Recommendations-D/C: None Discharge Status/Home Program Cont per POC Barriers to Progress Pain, Weakness, Endurance Target Placement Home/YENY Time Time In: 935 Time Out: 1105 DATE: Sep 10, 2023 Total Billed Treatment Time: 90 Total Billed Treatment 90 min 1 visit EVM FA x 2 GT x 3 ELLY FLORIAN PT Sep 10, 2023 09:47
--- NOTE | 2023-09-10 12:02 | ST Cognitive Linguistic Eval ---
Speech Evaluation-General Medical Diagnosis S/P C2 Cervical fx, Lt Acetabular fx Onset Date: Sep 06, 2023 Therapy Diagnosis Therapy Diagnosis: S/pfall Precautions Precautions: Fall Precautions/Isolations: Standard Precautions Referral Referring Physician: Dr. Pinedo Reason for Referral: Consult Medical History Pertinent Medical History: CAD, DM, HTN Current History The pt is s/p fall with C2 lateral mass fracture, left acetabular fracture, no surgical intervention. Reviewed History: Yes Social History Home: Assisted Living Current Living Status: Alone Speech PLF-Current Status Prior Level of Function Lives in assisted living, does not drive Subjective The pt was awake and alert, pleasant and cooperative through session. Language Eval: Auditory Follows General Conversations: Functional Language Eval: Verbal Language Completes Spontaneous Greeting: Functional Requests Basic Needs: Functional States Basic Personal Info: Functional Expresses Complex Ideas: Functional Objective Formal/Standardized Tests MMSE Results The pt was full oriented, registration was 3/3, recall was 2/3, with long-term recall at 3/3. Reverse spelling was 5/5, figure copy not completed. The pt was able to describe current injuries, limitations, and explain reasons for needed equipment independently. Oral Motor/Speech Production WFL. 3 oz water screening did not indicate concern for dysphagia. Speech-Plan Treatment Plan Speech Therapy Treatment Plan: Discontinue ST Frequency: Modified Program (IRF) (no treatment) Estimated Hrs Per Day: Other (no treatment) Rehab Potential: Good Time Speech Therapy Time In: 11:10 Speech Therapy Time Out: 11:30 DATE: Sep 10, 2023 Total Billed Time: 20 Billed Treatment Time 1 SPSNDCOMP (20 MIN) LETICIA ROMERO Sep 10, 2023 12:02
[2023-09-10] MEDS: inSUlin ASPART 1 UNIT/0.01 ML (PER UNIT) SC SCH (16:03)
[2023-09-10 20:53] VITALS: BP 141/69
[2023-09-11] MEDS: CALCIUM CARBONATE 600 MG +VITAMIN D TABLET PO SCH (06:08)
[2023-09-11] MEDS: CYANOCOBALAMIN 1,000 MCG TABLET PO SCH (06:08)
[2023-09-11] MEDS: ACETAMINOPHEN 325 MG TABLET PO SCH ×3 (06:08→16:52)
[2023-09-11] MEDS: POTASSIUM CHLORIDE 10 MEQ TABLET PO SCH (06:08)
[2023-09-11] MEDS: inSUlin ASPART 1 UNIT/0.01 ML (PER UNIT) SC SCH ×2 (06:44→16:52)
[2023-09-11 08:00] VITALS: BP 111/68
[2023-09-11] MEDS: NALTREXONE 50 MG TABLET PO SCH (08:19)
[2023-09-11] MEDS: EMPAGLIFLOZIN 10 MG TABLET PO SCH (08:19)
[2023-09-11] MEDS: APIXABAN 5 MG TABLET PO SCH ×2 (08:19→20:24)
[2023-09-11] MEDS: FAMOTIDINE 20 MG TABLET PO SCH (08:19)
[2023-09-11] MEDS: LORATADINE 10 MG TABLET PO SCH (08:19)
[2023-09-11] MEDS: dilTIAZem ER 180 MG CAPSULE PO SCH (08:19)
[2023-09-11] MEDS: ALLOPURINOL 100 MG TABLET PO SCH (08:19)
[2023-09-11] MEDS: FERROUS SULFATE 325 MG (IRON) TABLET PO SCH (08:19)
[2023-09-11] MEDS: VALSARTAN 80 MG (DIOVAN) TAB PO SCH (08:19)
[2023-09-11] MEDS: DOCUSATE SODIUM 100 MG CAPSULE PO SCH ×2 (08:26→19:57)
[2023-09-11] MEDS: TRIAMCINOLONE 0.1% CR (KENALOG) 15 GM TUBE TP SCH ×2 (08:26→20:25)
[2023-09-11] MEDS: SENNA W/DOCUSATE TABLET PO SCH ×2 (08:26→19:58)
[2023-09-11] MEDS: oxyCODONE IMMEDIATE RELEASE 5 MG TABLET PO PRN (09:51)
--- NOTE | 2023-09-11 10:18 | Occupational Ther Daily Note ---
OT Current Status-Daily Note Subjective Pt agreeable to OT tx, rates pain 5/10 in neck. RN notified and provided pain medication Mental Status/Objective Patient Orientation: Normal For Age Attachments: Other-See Comments (C collar) ADL-Treatment Therapy Code Descriptions/Definitions Functional [place] Measure: 0=Not Assessed/NA 4=Minimal Assistance 1=Total Assistance 5=Supervision or Setup 2=Maximal Assistance 6=Modified [place] 3=Moderate Assistance 7=Complete IndependenceSCALE: Activities may be completed with or without assistive devices. 2-Zgdnwousxj-telojly completes the activity by him/herself with no assistance from a helper. 5-Set-up or Clean-up Assistance-helper sets up or cleans up; patient completes activity. [place] assists only prior to or following the activity. 4-Supervision or Touching Assistance-helper provides verbal cues and/or touching/steadying and/or contact guard assistance as patient completes activ ity. Assistance may be provided throughout the activity or intermittently. 3-Partial/Moderate Assistance-helper does LESS THAN HALF the effort. [place] lifts, holds or supports trunk or limbs, but provides less than half the effort. 2-Substantial/Maximal Assistance-helper does MORE THAN HALF the effort. [place] lifts or holds trunk or limbs and provides more than half the effort. 1-Yrnqsuulb-huspsa does ALL the effort. Patient does none of the effort to complete the activity. Or, the assistance of 2 or more helpers is required for the patient to complete the activity. If activity was not attempted, code reason: 7-Patient Refused. 9-Not Applicable-not attempted and the patient did not perform the activity before the current illness, exacerbation or injury. 10-Not Attempted due to Environmental Limitations-(lack of equipment, weather restraints, etc.). 88-Not Attempted due to Medical Conditions or Safety Concerns. Oral Hygiene (QC): 4 (SBA standing at sink. 1 VC to locate toothbrush) Shower/Bathe Self (QC): 4 (CGA in stand. Pt required VC to use Sponge to wash LEs) Upper Body Dressing (QC): 3 (assist with C collar. Set up with button up shirt.) Lower Body Dressing (QC): 3 (Min A threading LEs into pants using dressing stick.) On/Off Footwear: 3 (Min A donning slip on shoes using shoe horn) Other Treatment [id number] OT tx: Pt stood from recliner, CGA, CGA transfer into shower using FWW, VCs for safety. Pt doffed clothes using AE as needed, then completed shower. Prior to shower, OT informed pt about LH sponge to wash LEs, during shower, OT asked if she was able to wash her feet, pt replied no and that she wasn't able to prior to hospitalization. OT again educated pt on LH sponge, Vcs to locate sponge on bench. Pt then able to utilize to wash her feet. Pt dried off, OT educated pt on changing C collar pads, then pt donned clothes, VCs required for AE. Pt stood at sink for grooming tasks, SBA. Mod A sit to stand transfer from w/c during ADLs. : OT/PT cotreat due to skill of 2 clinicians required which a rehabilitation tech could not perform in order to coordinate UE/LEs, decrease fall risk, and due to pt's limitations in strength, activity tolerance, transfers/mobility. OT focused on UE placement and cues for sequencing and safety, PT focused on t ransfers/mobility, LE placement and gross overall movement. Pt performed functional mobility in hallways using FWW, partial assistance required for sit to stand transfer. Post tx, pt in hallways with PT, all needs met. Education OT Patient Education: Correct positioning, Energy conservation, Modified ADL techniques, Progress toward Goal/Update tx plan, Purpose of tx/functional activities, Rehab process Teaching Recipient: Patient Teaching Methods: Discussion Response to Teaching: Verbalize Understanding OT Short Term Goals Short Term Goals Time Frame: Sep 17, 2023 Shower/bathe self: 4 Putting on/taking off footwear: 4 OT Long-Term Goals Hoof Trimmer Goals Time Frame: Sep 26, 2023 Acute change in mental status: 0 Inattention: 0 Disorganized thinkin Altered level of consciousness: 0 Eating (QC): 6 Oral Hygiene (QC): 6 Toileting Hygiene (QC): 6 Shower/Bathe Self (QC): 6 Upper Body Dressing (QC): 6 Lower Body Dressing (QC): 6 On/Off Footwear (QC): 6 (slip on shoes only) Additional Goals: 1-Demonstrate ADL Tasks, 2-Verbalize Understanding, 3- ImproveStrength/Khadar 1=Demonstrate adherence to instructed precautions during ADL tasks. 2=Patient will verbalize/demonstrate understanding of assistive devices/modifications for ADL. 3=Patient will improve strength/tolerance for activity to enable patient to perform ADL's. OT Education/Plan Problem List/Assessment Assessment: Decreased Activ Tolerance, Decreased UE Strength, Impaired Funct Balance, Impaired I ADL's, Impaired Self-Care Skills Discharge Recommendations Plan/Recommendations: Continue POC Treatment Plan/Plan of Care Patient would benefit from OT for education, treatment and training to promote independence in ADL's, mobility, safety and/or upper extremity function for ADL's. Plan of Care: ADL Retraining, Functional Mobility, Group Exercise/Act as Ind, UE Funct Exercise/Act Treatment Duration: Sep 26, 2023 Frequency: At least 5 of 7 days/Wk (IRF) Estimated Hrs Per Day: 1.5 hours per day Agreement: Yes Rehab Potential: Good Time Start Time: 08:30 Stop Time: 10:00 DATE: Sep 11, 2023 Total Time Billed (hr/min): 90 Billed Treatment Time cotreat x15' 1, ADL 5 (75'), FA (15') COLIN FRIEND OT Sep 11, 2023 10:18
--- NOTE | 2023-09-11 11:56 | Physical Therapy Daily Note ---
PT Daily Note-Current Subjective Pt is agreeable to PT. Reported neck and L LE pain at 5/10. Pain Numeric Pain Scale: 5-Moderate Pain Location Body Site: Neck Section J - Health Conditions 1. Rarely or not at all 2. Occasionally 3. Frequently 4. Almost constantly 8. Unable to answer Pain Effect on Sleep: 2 Pain Interference with Therapy: 3 Pain Interference w/Day-to-Day: 3 Transfers SCALE: Activities may be completed with or without assistive devices. 6-Mawaisyxnz-tymgukx completes the activity by him/herself with no assistance from a helper. 5-Set-up or Clean-up Assistance-helper sets up or cleans up; patient completes activity. [place] assists only prior to or following the activity. 4-Supervision or Touching Assistance-helper provides verbal cues and/or touching/steadying and/or contact guard assistance as patient completes activity. Assistance may be provided throughout the activity or intermittently. 3-Partial/Moderate Assistance-helper does LESS THAN HALF the effort. [place] lifts, holds or supports trunk or limbs, but provides less than half the effort. 2-Substantial/Maximal Assistance-helper does MORE THAN HALF the effort. [place] lifts or holds trunk or limbs and provides more than half the effort. 1-Uhhrasavc-fejmhg does ALL the effort. Patient does none of the effort to complete the activity. Or, the assistance of 2 or more helpers is required for the patient to complete the activity. If activity was not attempted, code reason: 7-Patient Refused. 9-Not Applicable-not attempted and the patient did not perform the activity before the current illness, exacerbation or injury. 10-Not Attempted due to Environmental Limitations-(lack of equipment, weather restraints, etc.). 88-Not Attempted due to Medical Conditions or Safety Concerns. Sit to Stand (QC): 3 Chair/Vjo-su-Jqvwc Xfer(QC): 3 Weight Bearing Right Lower Extremity: Right Weight Bearing/Tolerated Left Lower Extremity: Left Weight Bearing/Tolerated Cervical precautions: no lifting >2lbs, no pushing/pulling, or strenuous exercise for 4 weeks. No driving. WBAT on LEs. Wear neck collar at all times (change pads after getting out of the shower; keep head still while pads are being changed) Gait Training Does the Patient Walk?: Yes Distance: 80ft Walk 10 feet (QC): 4 Walk 50 ft with 2 Turns(QC): 4 Walk 150 ft (QC): 88 Gait Assistive Device: FWW Wheelchair Training Does the Pt Use a Wheelchair?: Yes Wheel 50 ft with 2 turns (QC): 3 Treatments PT/OT co-tx from [id number], skills of 2 clinicians required to decrease fall risk, increase functional mobility and increase safety awareness throughout session. PT focusing on transfers and ambulation, while OT focusing on functional mobility, UE placement and assisting with ambulation. Pt completed functional with Min A. Pt ambulated 80ft with the FWW and CGA/SBA (w/c follow and extended time to complete). Pt completed w/c mobility x 80ft with Min A. Pt completed seated B LE Ther Ex x 15 reps each with the red Tband. Pt completed 15 min on the nu-step on level 1. After treatment session, pt was sitting up in the recliner with call light in reach and all needs met. Assessment Current Status: Good Progress Pt tolerated PT well, with good effort PT Mcfp Goals Industrial Electrical Engineer Goals PT Mcfp Goals Time Frame: Sep 24, 2023 Roll Left & Right (QC): 6 (Pt will be Mod I with functional mobility ) Sit to Lying (QC): 6 (Pt will be Mod I with functional mobility ) Lying-Sitting on Side/Bed(QC): 6 (Pt will be Mod I with functional mobility ) Sit to Stand (QC): 6 (Pt will be Mod I with functional mobility ) Chair/Rgz-sy-Ppejw Xfer(QC): 6 (Pt will be Mod I with functional mobility ) Toilet Transfer (QC): 6 (Pt will be Mod I with functional mobility ) Car Transfer (QC): 6 (Pt will be Mod I with functional mobility ) Does the Patient Walk: Yes Walk 10 feet (QC): 6 (Pt will be Mod I with functional mobility ) Walk 50ft with 2 Turns (QC): 6 (Pt will be Mod I with functional mobility ) Walk 150 ft (QC): 6 (Pt will be Mod I with functional mobility ) Walking 10ft on Uneven Surface: 6 (Pt will be Mod I with functional mobility ) 1 Step (curb) (QC): 6 (Pt will be Mod I with functional mobility ) 4 Steps (QC): 6 (Pt will be Mod I with functional mobility ) 12 Steps (QC): 9 (Pt did not do at PLOF) Picking up an Object (QC): 6 (Pt will be Mod I with functional mobility ) Does the Pt use WC or Scooter?: No Wheel 50 feet with 2 turns (QC: 9 Type: N/A Wheel 150 feet: 9 Type: N/A PT Plan Problem List Problem List: Activity Tolerance, Functional Strength, Safety, Balance, Gait, Transfer, Bed Mobility, ROM Treatment/Plan Treatment Plan: Continue Plan of Care Treatment Plan: Bed Mobility, Education, Functional Activity Khadar, Functional Strength, Group Therapy, Gait, Safety, Therapeutic Exercise, Transfers Treatment Duration: Sep 24, 2023 Frequency: At least 5 of 7 days/Wk (IRF) Estimated Hrs Per Day: 1.5 hours per day Patient and/or Family Agrees t: Yes Safety Risks/Education Patient Education: Gait Training, Transfer Techniques, Correct Positioning, W/C Management, Safety Issues Teaching Recipient: Patient Teaching Methods: Demonstration, Discussion Response to Teaching: Verbalize Understanding, Return Demonstration, Reinforcement Needed Discharge Recommendations Therapy Discharge Recommendati: Home & Family, Post Acute PT Equpiment Recommendations-D/C: None Discharge Status/Home Program Cont per POC Barriers to Progress Pain, Weakness, Endurance Target Placement Home with family Time Time In: 945 Time Out: 1115 DATE: Sep 11, 2023 Total Billed Treatment Time: 90 Total Billed Treatment 90 min total from [id number]; Co-tx for 15 min from [id number] 1 visit EX x 1 GT x 2 FA x 3 ELLY FLORIAN PT Sep 11, 2023 11:56
--- NOTE | 2023-09-11 12:30 | Individualized Plan of Care ---
Individualized Plan of Care Rehab Nursing IPOC Order Admission Date Sep 09, 2023 at 16:11 Current Orders Orders Admission Arrival Bed Request (09/09/23 16:11) General/Regular (09/09/23 Dinner) Admission Order(Inpt,Obs,Sdc) (09/09/23 17:20) Vital Signs: Per Unit Policy ( 08,16,00 (09/09/23 17:20) Ilan Hose 09,21 (09/09/23 17:20) Sequential Compression Device [id number] (09/09/23 17:20) Staff Submarine Warfare Officer-Inpt Rehab Con (09/09/23 17:20) Rehab Nursing Orders-Ipoc (09/09/23 17:20) Physical Therapy Rehab Orders (09/09/23 17:20) Occupational Therapy Rehab Ord (09/09/23 17:20) Speech Therapy Rehab Orders (09/09/23 17:20) Cbc And Automated Diff (09/10/23 06:00) Comprehensive Metabolic Panel (09/10/23 06:00) Precautions (Aru) (09/09/23 17:20) Rehab-Intensity Of Therapy (09/09/23 17:20) Initiate Admission Nursing Pro .admission (09/09/23 17:20) Alprazolam Tablet (Alprazolam Tablet) (09/09/23 17:30) Calcium Carbonate Chew Tablet (Calcium C (09/09/23 17:30) Diphenhydramine Tablet (Diphenhydramine (09/09/23 17:30) Docusate Sodium Capsule (Docusate Sodium (09/09/23 21:00) Docusate Sodium Capsule (Docusate Sodium (09/09/23 17:30) Bisacodyl Suppository (Bisacodyl Supposi (09/09/23 17:30) Lactulose Oral Solution (Enulose Oral So (09/09/23 17:30) Na Phos/Na Biphos Adult Enema (Na Phos/N (09/09/23 17:30) Guaifenesin/Codeine Syrup (Guaifenesin/C (09/09/23 17:30) Loperamide Capsule (Loperamide Capsule) (09/09/23 17:30) Melatonin Tablet (Melatonin Tablet) (09/09/23 17:30) Polyethylene Glycol Powder (Polyethylen (09/09/23 21:00) Ondansetron Oral Dissolve Tab (Ondanset (09/09/23 17:30) Senna W/Docusate Tablet (Senna W/Docusat (09/09/23 21:00) Acetaminophen Tablet (Acetaminophen Ta (09/09/23 17:30) Initiate Admission Nursing Pro .admission (09/09/23 17:20) Acetaminophen Tablet (Acetaminophen Ta (09/09/23 17:30) Allopurinol Tablet (Allopurinol Tablet) (09/10/23 09:00) Apixaban Tablet (Apixaban Tablet) (09/09/23 21:00) Diltiazem Er 24 Hr Capsule (Diltiazem Er (09/10/23 09:00) Famotidine Tablet (Famotidine Tablet) (09/10/23 09:00) Ferrous Sulfate Tablet (Ferrous Sulfate (09/10/23 09:00) Naltrexone Tablet (Naltrexone Tablet) (09/10/23 09:00) Oxycodone Immediate Rel Tablet (Oxycodon (09/09/23 17:30) Phenylephrine/Cocobutter Suppo (Phenylep (09/09/23 17:30) Polyethylene Glycol Powder (Polyethylen (09/09/23 17:30) Potassium Chloride (Tablet) (Potassium C (09/10/23 07:00) Senna W/Docusate Tablet (Senna W/Docusat (09/09/23 21:00) Triamcinolone 0.1% Cream 15 Gm (Kenalog (09/09/23 21:00) (Nf) Calcium Citrate/Vitamin D3 (Calcium (09/10/23 09:00) (Nf) Cetirizine Hcl (09/10/23 09:00) (Nf) Cyanocobalamin (Vitamin B-12) (Essence (09/10/23 09:00) (Nf) Dapagliflozin Propanediol (Farxiga) (09/10/23 09:00) (Nf) Omalizumab (Xolair) (09/09/23 17:30) (Nf) Ubidecarenone (Co Q-10) (09/10/23 09:00) (Nf) Valsartan (09/10/23 09:00) Valsartan Tablet (Diovan Tablet) (09/10/23 09:00) Loratadine Tablet (Loratadine Tablet) (09/10/23 09:00) Cyanocobalamin Tablet (Cyanocobalamin Ta (09/10/23 07:00) Empagliflozin Tablet (Empagliflozin Tabl (09/10/23 09:00) Calcium Carbonate + Vitamin D3 (Calcium (09/10/23 07:00) Code/Resuscitation (09/09/23 19:03) Nursing Communication (Order) (09/09/23 21:26) Manual Differential (09/10/23 07:05) Iron Test (Fe) (09/10/23 09:26) Vitamin B 12 (09/10/23 09:26) Accucheck Bid DBID (09/10/23 11:43) Insulin Aspart (Per Unit) (Insulin Aspar (09/10/23 16:30) Patient Visit (09/10/23 ) Pt Eval Moderate Complexity (09/10/23 ) Functional Activities, Ea 15 (09/10/23 ) Gait Training, Ea 15 Min (09/10/23 ) Patient Visit (09/10/23 ) Speech Sound Lang Comp (09/10/23 ) Patient Visit (09/11/23 ) Exercise Therap, Ea 15 Min (09/11/23 ) Gait Training, Ea 15 Min (09/11/23 ) Functional Activities, Ea 15 (09/11/23 ) Rehab Nursing Orders: Ongoing Assess. of Cognitive Status, Ongoing Assess. of Function Status, Bladder Management, Bladder Scan, Bladder Training, Bowel Management, Bowel Training, Disease Management & Educaiton, DVT Prophylaxis, Fall Prevention, Fluid/Electrolyte/Nutrition Mgmt, Infection Prevention, Medication Management & Education, Management of Risks & Complications, Management of Skin Intergrity, Nutrition Management, Pain Management, Patient/Family Support, Safety Management Intensity of Therapy to be met Patient to be seen: Min.3h per day/5 of 7d PT IPOC Problem List: Activity Tolerance, Functional Strength, Safety, Balance, Gait, Transfer, Bed Mobility, ROM Treatment Plan: Continue Plan of Care Bed Mobility, Education, Functional Activity Khadar, Functional Strength, Group Therapy, Gait, Safety, Therapeutic Exercise, Transfers Treatment Duration: Sep 24, 2023 Frequency: At least 5 of 7 days/Wk (IRF) Estimated Hrs Per Day: 1.5 hours per day OT IPOC Problems: Decreased Activ Tolerance, Decreased UE Strength, Impaired Funct Balance, Impaired I ADL's, Impaired Self-Care Skills OT Treatment, Training and Edu: Yes Plan of Care: ADL Retraining, Functional Mobility, Group Exercise/Act as Ind, UE Funct Exercise/Act Treatment Duration: Sep 26, 2023 Frequency: At least 5 of 7 days/Wk (IRF) Estimated Hrs Per Day: 1.[address] IPOC Speech Therapy Treatment Plan: Discontinue ST Treatment Duration: Sep 11, 2023 Frequency: Modified Program (IRF) (no treatment) Estimated Hrs Per Day: Other (no treatment) Staff Submarine Warfare Officer/Case Mgmt Staff Submarine Warfare Officer/Case Managemen: Discharge Planning Dietitian/Cream Hauler Dietitian/Cream Hauler to monitor nutritional status and make changes and/or recommendations as needed and work with speech pathology on dietary upgrades as the occur. Physician IPOC Medical Issues being managed closely and that require the 24 hour availability of a physician: Recent fall with C2 fracture maintained in [place] collar along with acetabular fracture will require close monitoring especially given advanced age since high risk for decompensation Medical Issues: Bowel/Bladder Function, DVT Prophylaxis, Falls Precautions, Fluid/Electrolyte/Nutrition Balance, Infection Protection, Pain Management, Weight Bearing Precautions Brief Synthesis of Preadmission Screen, Post-Admission Evaluation, and Therapy Evaluations: PT and OT will focus on regaining function with use of assistive devices in order to increase stamina with ambulation and independence in ADLs Medical Prognosis: Good Anticipated Length of Stay: 7 days JULIÁN ALFREDO DO Sep 11, 2023 12:30
--- NOTE | 2023-09-11 12:30 | PM&R Progress Note ---
Subjective HPI/CC On Admission Date Seen by Provider: Sep 11, 2023 Time Seen by Provider: 12:30 Subjective/Events-last exam 09/11/2023: Patient doing well Denies any new problems Slowly ambulating Pain is controlled Bowels are moving 09/10/2023: Patient doing well Moving slowly Pain is controlled Reviewed labs and meds No other concerns Review of Systems General: Fatigue, Malaise Objective Exam Vital Signs Vital Signs Date Time Temp Pulse Resp B/P (MAP) Pulse Ox O2 Delivery O2 Flow Rate FiO2 09/11/23 21:06 36.4 98 16 130/60 (83) 97 Room Air Capillary Refill : General Appearance: No Apparent Distress, WD/WN, Chronically ill, Thin, Other (frail, aspien collar in place) HEENT: PERRL/EOMI, Normal ENT Inspection, Pharynx Normal Neck: Full Range of Motion, Normal Inspection, Non Tender, Supple, Carotid Bruit Respiratory: Chest Non Tender, Lungs Clear, Normal Breath Sounds, No Accessory Muscle Use, No Respiratory Distress Cardiovascular: No Gallop, No JVD, No Murmur, Normal Peripheral Pulses, Irregularly Irregular Gastrointestinal: Normal Bowel Sounds, No Organomegaly, No Pulsatile Mass, Non Tender, Soft Back: Normal Inspection, No CVA Tenderness, No Vertebral Tenderness Extremity: Normal Capillary Refill, Normal Inspection, Normal Range of Motion (except left leg due to pain), Non Tender, No Calf Tenderness, Pedal Edema Neurologic/Psychiatric: Alert, Oriented x3, Normal Mood/Affect, order editor II-XII Norm as Tested, Abnormal Gait, Motor Weakness (left leg) Skin: Normal Color, Warm/Dry, Other (venous stasis of legs) Lymphatic: No Adenopathy Results/Procedures Lab Patient resulted labs reviewed. FIM Transfers Therapy Code Descriptions/Definitions Functional [place] Measure: 0=Not Assessed/NA 4=Minimal Assistance 1=Total Assistance 5=Supervision or Setup 2=Maximal Assistance 6=Modified [place] 3=Moderate Assistance 7=Complete IndependenceSCALE: Activities may be completed with or without assistive devices. 0-Sfjnjleqvi-dwxqvho completes the activity by him/herself with no assistance from a helper. 5-Set-up or Clean-up Assistance-helper sets up or cleans up; patient completes activity. Elmo assists only prior to or following the activity. 4-Supervision or Touching Assistance-helper provides verbal cues and/or touching/steadying and/or contact guard assistance as patient completes activity. Assistance may be provided throughout the activity or intermittently. 3-Partial/Moderate Assistance-helper does LESS THAN HALF the effort. Elmo lifts, holds or supports trunk or limbs, but provides less than half the effort. 2-Substantial/Maximal Assistance-helper does MORE THAN HALF the effort. Elmo lifts or holds trunk or limbs and provides more than half the effort. 6-Qjpuxztme-ayzhux does ALL the effort. Patient does none of the effort to complete the activity. Or, the assistance of 2 or more helpers is required for the patient to complete the activity. If activity was not attempted, code reason: 7-Patient Refused. 9-Not Applicable-not attempted and the patient did not perform the activity before the current illness, exacerbation or injury. 10-Not Attempted due to Environmental Limitations-(lack of equipment, weather restraints, etc.). 88-Not Attempted due to Medical Conditions or Safety Concerns. Roll Left to Right (QC): 3 (Min A ) Sit to Lying (QC): 3 (Min A ) Sit to Stand (QC): 3 Chair/Nzj-ss-Bcisd Xfer(QC): 3 Car Transfer (QC): 3 (Min A ) Gait Training Does the Patient Walk?: Yes Distance: 80ft Walk 10 feet (QC): 4 Walk 50 ft with 2 Turns(QC): 4 Walk 150 ft (QC): 88 Walking 10ft/uneven surface-QC: 4 (CGA ) Gait Assistive Device: FWW Wheelchair Training Does the Pt Use a Wheelchair?: Yes Wheel 50 ft with 2 turns (QC): 3 Wheel 150 ft (QC): 9 Type of Wheelchair: N/A Stair Training #of Steps: 1 1 Step (curb) (QC): 3 (Min A ) 4 Steps (QC): 88 (Pain, weakness) 12 Steps (QC): 88 (Pain, weakness) Balance Picking up an Object (QC): 4 (CGA with sfdc solution architect ) ADL-Treatment Eating (QC): 6 (IND with breakfast) Oral Hygiene (QC): 4 (SBA standing at sink. 1 VC to locate toothbrush) Shower/Bathe Self (QC): 4 (CGA in stand. Pt required VC to use LH Sponge to wash LEs) Upper Body Dressing (QC): 3 (assist with C collar. Set up with button up shirt.) Lower Body Dressing (QC): 3 (Min A threading LEs into pants using dressing stick.) On/Off Footwear (QC): 3 (Min A donning slip on shoes using LH shoe horn) Toileting Hygiene (QC): 4 (CGA) Assessment/Plan Assessment and Plan Assess & Plan/Chief Complaint Assessment: C2 lateral mass fracture non-surgical type placed in [place] collar Left acetabular fracture non-surgical type Inferior ramus fracture AF OAC Advanced age CKD HTN HLP Fall risk CHFpEF Plan: PT OT Pain control BM regimen Monitor closely 09/10/2023: Supportive nursing home meds Pain control 09/11/2023: Supportive nursing home meds (1) Closed C2 fracture JULIÁN ALFREDO DO Sep 11, 2023 12:30
[2023-09-11 21:06] VITALS: BP 130/60
[2023-09-12] MEDS: ACETAMINOPHEN 325 MG TABLET PO SCH ×4 (00:06→17:07)
--- NOTE | 2023-09-12 05:17 | PM&R Progress Note ---
Subjective HPI/CC On Admission Date Seen by Provider: Sep 12, 2023 Time Seen by Provider: 12:00 Subjective/Events-last exam 09/12/2023: Patient making slow recovery but improving Reviewed meds Pain is controlled No falls 09/11/2023: Patient doing well Denies any new problems Slowly ambulating Pain is controlled Bowels are moving 09/10/2023: Patient doing well Moving slowly Pain is controlled Reviewed labs and meds No other concerns Review of Systems General: Fatigue, Malaise Objective Exam Vital Signs Vital Signs Date Time Temp Pulse Resp B/P (MAP) Pulse Ox O2 Delivery O2 Flow Rate FiO2 09/12/23 20:36 Room Air 09/12/23 20:00 36.3 96 20 150/67 (94) 97 Capillary Refill : General Appearance: No Apparent Distress, WD/WN, Chronically ill, Thin, Other (frail, aspien collar in place) HEENT: PERRL/EOMI, Normal ENT Inspection, Pharynx Normal Neck: Full Range of Motion, Normal Inspection, Non Tender, Supple, Carotid Bruit Respiratory: Chest Non Tender, Lungs Clear, Normal Breath Sounds, No Accessory Muscle Use, No Respiratory Distress Cardiovascular: No Gallop, No JVD, No Murmur, Normal Peripheral Pulses, Irregularly Irregular Gastrointestinal: Normal Bowel Sounds, No Organomegaly, No Pulsatile Mass, Non Tender, Soft Back: Normal Inspection, No CVA Tenderness, No Vertebral Tenderness Extremity: Normal Capillary Refill, Normal Inspection, Normal Range of Motion (except left leg due to pain), Non Tender, No Calf Tenderness, Pedal Edema Neurologic/Psychiatric: Alert, Oriented x3, Normal Mood/Affect, fringe maker II-XII Norm as Tested, Abnormal Gait, Motor Weakness (left leg) Skin: Normal Color, Warm/Dry, Other (venous stasis of legs) Lymphatic: No Adenopathy Results/Procedures Lab Patient resulted labs reviewed. FIM Transfers Therapy Code Descriptions/Definitions Functional [place] Measure: 0=Not Assessed/NA 4=Minimal Assistance 1=Total Assistance 5=Supervision or Setup 2=Maximal Assistance 6=Modified [place] 3=Moderate Assistance 7=Complete IndependenceSCALE: Activities may be completed with or without assistive devices. 6-Azqdgcycqr-plpgbsi completes the activity by him/herself with no assistance from a helper. 5-Set-up or Clean-up Assistance-helper sets up or cleans up; patient completes activity. [place] assists only prior to or following the activity. 4-Supervision or Touching Assistance-helper provides verbal cues and/or touching/steadying and/or contact guard assistance as patient completes activity. Assistance may be provided throughout the activity or intermittently. 3-Partial/Moderate Assistance-helper does LESS THAN HALF the effort. Davis lifts, holds or supports trunk or limbs, but provides less than half the effort. 2-Substantial/Maximal Assistance-helper does MORE THAN HALF the effort. [place] lifts or holds trunk or limbs and provides more than half the effort. 4-Yumgjtzsf-lyuces does ALL the effort. Patient does none of the effort to complete the activity. Or, the assistance of 2 or more helpers is required for the patient to complete the activity. If activity was not attempted, code reason: 7-Patient Refused. 9-Not Applicable-not attempted and the patient did not perform the activity before the current illness, exacerbation or injury. 10-Not Attempted due to Environmental Limitations-(lack of equipment, weather restraints, etc.). 88-Not Attempted due to Medical Conditions or Safety Concerns. Roll Left to Right (QC): 3 (Min A ) Sit to Lying (QC): 3 (Min A ) Sit to Stand (QC): 3 Chair/Tvu-pt-Sjgml Xfer(QC): 3 Car Transfer (QC): 3 (Min A ) Gait Training Does the Patient Walk?: Yes Distance: 80ft Walk 10 feet (QC): 4 Walk 50 ft with 2 Turns(QC): 4 Walk 150 ft (QC): 88 Walking 10ft/uneven surface-QC: 4 (CGA ) Gait Assistive Device: FWW Wheelchair Training Does the Pt Use a Wheelchair?: Yes Wheel 50 ft with 2 turns (QC): 3 Wheel 150 ft (QC): 9 Type of Wheelchair: N/A Stair Training #of Steps: 1 1 Step (curb) (QC): 3 (Min A ) 4 Steps (QC): 88 (Pain, weakness) 12 Steps (QC): 88 (Pain, weakness) Balance Picking up an Object (QC): 4 (CGA with vocational rehabilitation counselor ) ADL-Treatment Eating (QC): 6 (IND with breakfast) Oral Hygiene (QC): 4 (SBA standing at sink. 1 VC to locate toothbrush) Shower/Bathe Self (QC): 4 (CGA in stand. Pt required VC to use Sponge to wash LEs) Upper Body Dressing (QC): 3 (assist with C collar. Set up with button up shirt.) Lower Body Dressing (QC): 3 (Min A threading LEs into pants using dressing stick.) On/Off Footwear (QC): 3 (Min A donning slip on shoes using shoe horn) Toileting Hygiene (QC): 4 (CGA) Assessment/Plan Assessment and Plan Assess & Plan/Chief Complaint Assessment: C2 lateral mass fracture non-surgical type placed in [place] collar Left acetabular fracture non-surgical type Inferior ramus fracture AF OAC Advanced age CKD HTN HLP Fall risk CHFpEF Plan: PT OT Pain control BM regimen Monitor closely 09/10/2023: Supportive [facility] meds Pain control 09/11/2023: Supportive jail meds 09/12/2023: Supportive care Pain is controlled (1) Closed C2 fracture JULIÁN ALFREDO DO Sep 12, 2023 05:16
[2023-09-12] MEDS: POTASSIUM CHLORIDE 10 MEQ TABLET PO SCH (06:04)
[2023-09-12] MEDS: inSUlin ASPART 1 UNIT/0.01 ML (PER UNIT) SC SCH ×2 (06:05→16:30)
[2023-09-12] MEDS: CALCIUM CARBONATE 600 MG +VITAMIN D TABLET PO SCH (06:05)
[2023-09-12] MEDS: CYANOCOBALAMIN 1,000 MCG TABLET PO SCH (06:05)
[2023-09-12 08:00] VITALS: BP 140/63
--- NOTE | 2023-09-12 08:44 | Occupational Ther Daily Note ---
OT Current Status-Daily Note Subjective Pt in recliner, agreeable to OT tx. Pt reports pain 4/10 in neck and L hip ADL-Treatment Therapy Code Descriptions/Definitions Functional [place] Measure: 0=Not Assessed/NA 4=Minimal Assistance 1=Total Assistance 5=Supervision or Setup 2=Maximal Assistance 6=Modified [place] 3=Moderate Assistance 7=Complete IndependenceSCALE: Activities may be completed with or without assistive devices. 6-Lrgwufwoug-ekkbxyo completes the activity by him/herself with no assistance from a helper. 5-Set-up or Clean-up Assistance-helper sets up or cleans up; patient completes activity. [place] assists only prior to or following the activity. 4-Supervision or Touching Assistance-helper provides verbal cues and/or touching/steadying and/or contact guard assistance as patient completes activity. Assistance may be provided throughout the activity or intermittently. 3-Partial/Moderate Assistance-helper does LESS THAN HALF the effort. [place] lifts, holds or supports trunk or limbs, but provides less than half the effort. 2-Substantial/Maximal Assistance-helper does MORE THAN HALF the effort. [place] lifts or holds trunk or limbs and provides more than half the effort. 3-Kepirmwfw-glyvcr does ALL the effort. Patient does none of the effort to complete the activity. Or, the assistance of 2 or more helpers is required for the patient to complete the activity. If activity was not attempted, code reason: 7-Patient Refused. 9-Not Applicable-not attempted and the patient did not perform the activity before the current illness, exacerbation or injury. 10-Not Attempted due to Environmental Limitations-(lack of equipment, weather restraints, etc.). 88-Not Attempted due to Medical Conditions or Safety Concerns. Eating (QC): 6 (IND with breakfast per pt report) Oral Hygiene (QC): 6 (IND standing at sink, no LOB, no VCs.) Upper Body Dressing (QC): 3 (set up with button up shirt. Pt required assistance adjusting C collar.) Toileting Hygiene (QC): 4 (CGA) Toilet Transfer (QC): 4 (CGA) Other Treatment Pt in recliner, finishing breakfast, agreeable to OT tx. Pt changed shirt at recliner with set up, OT assisted pt with adjusting C collar. Pt stood from recliner with CGA, then used FWW (CGA) to transfer into bathroom. Pt stood at sink to complete grooming tasks, IND. Pt able to locate hair brush, toothbrush and toothpaste without cues, no LOB noted throughout grooming task. Pt performed functional mobility to therapy gym using FWW, CGA-SBA, 100' total. In order to increase fine motor strength, pt removed beads from mod-heavy resistance theraputty. Pt required instructions x2 in order to complete task as instructed. Pt taken back to her room via w/c, sit to stand min A. Pt requests to use toilet, BSC placed behind her. She completed toileting, then used FWW to transfer to recliner, CGA. Post tx, pt in recliner, call light in reach and all needs met. Education OT Patient Education: Correct positioning, Energy conservation, Modified ADL techniques, Progress toward Goal/Update tx plan, Purpose of tx/functional activities, Rehab process Teaching Recipient: Patient Teaching Methods: Discussion Response to Teaching: Verbalize Understanding OT Short Term Goals Short Term Goals Time Frame: Sep 17, 2023 Shower/bathe self: 4 Putting on/taking off footwear: 4 OT Drywall Sprayer Goals Correction Goals Time Frame: Sep 26, 2023 Acute change in mental status: 0 Inattention: 0 Disorganized thinkin Altered level of consciousness: 0 Eating (QC): 6 Oral Hygiene (QC): 6 Toileting Hygiene (QC): 6 Shower/Bathe Self (QC): 6 Upper Body Dressing (QC): 6 Lower Body Dressing (QC): 6 On/Off Footwear (QC): 6 (slip on shoes only) Additional Goals: 1-Demonstrate ADL Tasks, 2-Verbalize Understanding, 3- ImproveStrength/Khadar 1=Demonstrate adherence to instructed precautions during ADL tasks. 2=Patient will verbalize/demonstrate understanding of assistive devices/modifications for ADL. 3=Patient will improve strength/tolerance for activity to enable patient to perform ADL's. OT Education/Plan Problem List/Assessment Assessment: Decreased Activ Tolerance, Decreased UE Strength, Impaired Funct Balance, Impaired I ADL's, Impaired Self-Care Skills Discharge Recommendations Plan/Recommendations: Continue POC Treatment Plan/Plan of Care Patient would benefit from OT for education, treatment and training to promote independence in ADL's, mobility, safety and/or upper extremity function for ADL's. Plan of Care: ADL Retraining, Functional Mobility, Group Exercise/Act as Ind, UE Funct Exercise/Act Treatment Duration: Sep 26, 2023 Frequency: At least 5 of 7 days/Wk (IRF) Estimated Hrs Per Day: 1.5 hours per day Agreement: Yes Rehab Potential: Good Time Start Time: 07:30 Stop Time: 09:00 DATE: Sep 12, 2023 Total Time Billed (hr/min): 90 Billed Treatment Time 1, ADL 3 (45'), FA 3 (45') COLIN FRIEND OT Sep 12, 2023 08:44
[2023-09-12] MEDS: SENNA W/DOCUSATE TABLET PO SCH ×2 (08:59→20:31)
[2023-09-12] MEDS: DOCUSATE SODIUM 100 MG CAPSULE PO SCH ×2 (08:59→20:31)
[2023-09-12] MEDS: dilTIAZem ER 180 MG CAPSULE PO SCH (08:59)
[2023-09-12] MEDS: APIXABAN 5 MG TABLET PO SCH ×2 (08:59→20:31)
[2023-09-12] MEDS: LORATADINE 10 MG TABLET PO SCH (08:59)
[2023-09-12] MEDS: NALTREXONE 50 MG TABLET PO SCH (09:00)
[2023-09-12] MEDS: EMPAGLIFLOZIN 10 MG TABLET PO SCH (09:00)
[2023-09-12] MEDS: ALLOPURINOL 100 MG TABLET PO SCH (09:00)
[2023-09-12] MEDS: FAMOTIDINE 20 MG TABLET PO SCH (09:00)
[2023-09-12] MEDS: TRIAMCINOLONE 0.1% CR (KENALOG) 15 GM TUBE TP SCH ×2 (09:01→20:31)
[2023-09-12] MEDS: VALSARTAN 80 MG (DIOVAN) TAB PO SCH (09:01)
[2023-09-12] MEDS: FERROUS SULFATE 325 MG (IRON) TABLET PO SCH (09:01)
--- NOTE | 2023-09-12 15:41 | Physical Therapy Daily Note ---
PT Daily Note-Current Subjective Pt found seated in recliner upon entry. Agreed to PT. Reports that her neck is really sore pre-treatment. Also reports BLE soreness. Does not rate pain. Pain Section J - Health Conditions 1. Rarely or not at all 2. Occasionally 3. Frequently 4. Almost constantly 8. Unable to answer Pain Effect on Sleep: 2 Pain Interference with Therapy: 3 Pain Interference w/Day-to-Day: 3 Mental Status Patient Orientation: Person, Place Transfers SCALE: Activities may be completed with or without assistive devices. 0-Tjnbmmlrew-qvgpelx completes the activity by him/herself with no assistance from a helper. 5-Set-up or Clean-up Assistance-helper sets up or cleans up; patient completes activity. [place] assists only prior to or following the activity. 4-Supervision or Touching Assistance-helper provides verbal cues and/or touching/steadying and/or contact guard assistance as patient completes activity. Assistance may be provided throughout the activity or intermittently. 3-Partial/Moderate Assistance-helper does LESS THAN HALF the effort. [place] lif ts, holds or supports trunk or limbs, but provides less than half the effort. 2-Substantial/Maximal Assistance-helper does MORE THAN HALF the effort. [place] lifts or holds trunk or limbs and provides more than half the effort. 8-Bgjrojobx-xdeqxt does ALL the effort. Patient does none of the effort to complete the activity. Or, the assistance of 2 or more helpers is required for the patient to complete the activity. If activity was not attempted, code reason: 7-Patient Refused. 9-Not Applicable-not attempted and the patient did not perform the activity before the current illness, exacerbation or injury. 10-Not Attempted due to Environmental Limitations-(lack of equipment, weather restraints, etc.). 88-Not Attempted due to Medical Conditions or Safety Concerns. Sit to Stand (QC): 4 Weight Bearing Right Lower Extremity: Right Weight Bearing/Tolerated Left Lower Extremity: Left Weight Bearing/Tolerated Cervical precautions: no lifting >2lbs, no pushing/pulling, or strenuous exercise for 4 weeks. No driving. WBAT on LEs. Wear neck collar at all times (change pads after getting out of the shower; keep head still while pads are being changed) Gait Training Does the Patient Walk?: Yes Distance: 80, 80 Walk 10 feet (QC): 4 Walk 50 ft with 2 Turns(QC): 4 Gait Persons Needed: 1 Gait Assistive Device: FWW Exercises NuStep Minutes: 15 NuStep Workload: 4 Treatments Sit to stands from chair x 5 Seated therapeutic exercises (B) x 10: - LAQs - Marching - Hamstring curls /c YTB - Hip abd /c YTB - TA sets /c SWB - Hip add Assessment Current Status: Fair Progress Pt performs sit to stand transfer /c use of B armrests for push off. Required CGA for safety due to strength deficits. Ambulates /c use of FWW up to 80 feet /c SBA due to balance deficits. Pt ambulates very slowly /c short step lengths. Verbal cues required for correct head posture during ambulation. Demonstrates good muscle endurance and strength /c all completed therapeutic exercises. Pt left in recliner post-treatment /c call light in place and all needs met. Continue to progress pt per POC. PT Senior Office Support Assistant Sosa Goals Alf Goals PT Alf Goals Time Frame: Sep 24, 2023 Roll Left & Right (QC): 6 (Pt will be Mod I with functional mobility ) Sit to Lying (QC): 6 (Pt will be Mod I with functional mobility ) Lying-Sitting on Side/Bed(QC): 6 (Pt will be Mod I with functional mobility ) Sit to Stand (QC): 6 (Pt will be Mod I with functional mobility ) Chair/Cik-br-Hyoek Xfer(QC): 6 (Pt will be Mod I with functional mobility ) Toilet Transfer (QC): 6 (Pt will be Mod I with functional mobility ) Car Transfer (QC): 6 (Pt will be Mod I with functional mobility ) Does the Patient Walk: Yes Walk 10 feet (QC): 6 (Pt will be Mod I with functional mobility ) Walk 50ft with 2 Turns (QC): 6 (Pt will be Mod I with functional mobility ) Walk 150 ft (QC): 6 (Pt will be Mod I with functional mobility ) Walking 10ft on Uneven Surface: 6 (Pt will be Mod I with functional mobility ) 1 Step (curb) (QC): 6 (Pt will be Mod I with functional mobility ) 4 Steps (QC): 6 (Pt will be Mod I with functional mobility ) 12 Steps (QC): 9 (Pt did not do at PLOF) Picking up an Object (QC): 6 (Pt will be Mod I with functional mobility ) Does the Pt use WC or Scooter?: No Wheel 50 feet with 2 turns (QC: 9 Type: N/A Wheel 150 feet: 9 Type: N/A PT Plan Treatment/Plan Treatment Plan: Continue Plan of Care Treatment Plan: Bed Mobility, Education, Functional Activity Khadar, Functional Strength, Group Therapy, Gait, Safety, Therapeutic Exercise, Transfers Treatment Duration: Sep 24, 2023 Frequency: At least 5 of 7 days/Wk (IRF) Estimated Hrs Per Day: 1.5 hours per day Patient and/or Family Agrees t: Yes Time Time In: 1315 Time Out: 1445 DATE: Sep 12, 2023 Total Billed Treatment Time: 90 Total Billed Treatment 1 visit GT x 3 EX x 2 FA x 1 LEBRON GARCIA PTA Sep 12, 2023 15:41
[2023-09-12 20:00] VITALS: BP 150/67
[2023-09-13] MEDS: ACETAMINOPHEN 325 MG TABLET PO SCH ×5 (00:49→23:28)
[2023-09-13] MEDS: diphenhydrAMINE 25 MG TABLET PO PRN ×2 (00:49→20:38)
[2023-09-13] MEDS: CYANOCOBALAMIN 1,000 MCG TABLET PO SCH (05:03)
[2023-09-13] MEDS: POTASSIUM CHLORIDE 10 MEQ TABLET PO SCH (05:04)
[2023-09-13] MEDS: CALCIUM CARBONATE 600 MG +VITAMIN D TABLET PO SCH (05:04)
[2023-09-13] MEDS: inSUlin ASPART 1 UNIT/0.01 ML (PER UNIT) SC SCH ×2 (05:08→16:41)
[2023-09-13 07:30] VITALS: BP 147/60
[2023-09-13] MEDS: oxyCODONE IMMEDIATE RELEASE 5 MG TABLET PO PRN (08:07)
--- NOTE | 2023-09-13 09:44 | Occupational Ther Daily Note ---
OT Current Status-Daily Note Subjective Pt was received standing at sink with AGRICULTURAL EXTENSION SPECIALIST at side. Pt was very pleasant and agreeable to therapy. Pt reports that she is feeling achy today, but will try her best. Pain Numeric Pain Scale: 4 Location Body Site: Neck Pain Description: Ache Mental Status/Objective Patient Orientation: Person, Place, Time, Situation Attachments: IV ADL-Treatment Therapy Code Descriptions/Definitions Functional [place] Measure: 0=Not Assessed/NA 4=Minimal Assistance 1=Total Assistance 5=Supervision or Setup 2=Maximal Assistance 6=Modified [place] 3=Moderate Assistance 7=Complete IndependenceSCALE: Activities may be completed with or without assistive devices. 3-Vzjdkvvtwm-rghudio completes the activity by him/herself with no assistance from a helper. 5-Set-up or Clean-up Assistance-helper sets up or cleans up; patient completes activity. [place] assists only prior to or following the activity. 4-Supervision or Touching Assistance-helper provides verbal cues and/or touching/steadying and/or contact guard assistance as patient completes activity. Assistance may be provided throughout the activity or intermittently. 3-Partial/Moderate Assistance-helper does LESS THAN HALF the effort. [place] lifts, holds or supports trunk or limbs, but provides less than half the effort. 2-Substantial/Maximal Assistance-helper does MORE THAN HALF the effort. [place] lifts or holds trunk or limbs and provides more than half the effort. 9-Rwnzwiiav-yyleke does ALL the effort. Patient does none of the effort to complete the activity. Or, the assistance of 2 or more helpers is required for the patient to complete the activity. If activity was not attempted, code reason: 7-Patient Refused. 9-Not Applicable-not attempted and the patient did not perform the activity before the current illness, exacerbation or injury. 10-Not Attempted due to Environmental Limitations-(lack of equipment, weather restraints, etc.). 88-Not Attempted due to Medical Conditions or Safety Concerns. Oral Hygiene (QC): 5 (standing at sink) Shower/Bathe Self (QC): 4 (with use of long handled sponge) Upper Body Dressing (QC): 3 (Pt requiring help to don and doff C-collar ) Lower Body Dressing (QC): 3 (Pt requiring assistance to thread legs through pants) On/Off Footwear: 2 (Pt requiring max A to don and doff socks this session) Toileting Hygiene (QC): 6 (Pt completed toilet hygiene independently in sitting with no cues for safety) Toilet Transfer (QC): 4 (Pt completed toilet transfer with use of FWW and supervision for balance and safety. ) Other Treatment Pt completed UE strengthening HEP with yellow theraband and supervision for correct positioning and technique. Focus on bilateral shoulder flexion/adduction/adduction, elbow flexion/extension and digit ROM. Pt completed grooming, including oral care and hair care, standing at sink with setup. Pt completed UBD/LBD nad showering sitting on shower chair and utilizing long handled sponge, dressing stick and station mechanic apprentice. Pt requiring assistance to wash and dry her back and to dry both legs/feet due to increased pain and stiffness. Education OT Patient Education: Correct positioning, Energy conservation, Home exercise program, Modified ADL techniques, Progress toward Goal/Update tx plan, Purpose of tx/functional activities, Rehab process, Transfer techniques, Use of adapted equipment Teaching Recipient: Patient Teaching Methods: Demonstration, Discussion Response to Teaching: Verbalize Understanding, Return Demonstration OT Short Term Goals Short Term Goals Time Frame: Sep 17, 2023 Shower/bathe self: 4 Putting on/taking off footwear: 4 OT Chcf Goals Chcf Goals Time Frame: Sep 26, 2023 Acute change in mental status: 0 Inattention: 0 Disorganized thinkin Altered level of consciousness: 0 Eating (QC): 6 Oral Hygiene (QC): 6 Toileting Hygiene (QC): 6 Shower/Bathe Self (QC): 6 Upper Body Dressing (QC): 6 Lower Body Dressing (QC): 6 On/Off Footwear (QC): 6 (slip on shoes only) Additional Goals: 1-Demonstrate ADL Tasks, 2-Verbalize Understanding, 3- ImproveStrength/Khadar 1=Demonstrate adherence to instructed precautions during ADL tasks. 2=Patient will verbalize/demonstrate understanding of assistive devices/modifications for ADL. 3=Patient will improve strength/tolerance for activity to enable patient to perform ADL's. OT Education/Plan Problem List/Assessment Assessment: Decreased Activ Tolerance, Decreased Safety Aware, Decreased UE Strength, Impaired Funct Balance, Impaired I ADL's, Impaired Self-Care Skills Discharge Recommendations Plan/Recommendations: Continue POC Treatment Plan/Plan of Care Treatment,Training & Education: Yes Patient would benefit from OT for education, treatment and training to promote independence in ADL's, mobility, safety and/or upper extremity function for ADL's. Plan of Care: ADL Retraining, Functional Mobility, Group Exercise/Act as Ind, UE Funct Exercise/Act Treatment Duration: Sep 26, 2023 Frequency: At least 5 of 7 days/Wk (IRF) Estimated Hrs Per Day: 1.5 hours per day Agreement: Yes Rehab Potential: Good Time Start Time: 07:55 Stop Time: 09:25 DATE: Sep 13, 2023 Total Time Billed (hr/min): 90 Billed Treatment Time 1, ADL 4, EX 2 Natalya Baumann OTR/L Sep 13, 2023 09:44
[2023-09-13] MEDS: VALSARTAN 80 MG (DIOVAN) TAB PO SCH (09:45)
[2023-09-13] MEDS: FAMOTIDINE 20 MG TABLET PO SCH (09:45)
[2023-09-13] MEDS: DOCUSATE SODIUM 100 MG CAPSULE PO SCH ×2 (09:45→20:38)
[2023-09-13] MEDS: SENNA W/DOCUSATE TABLET PO SCH ×2 (09:45→20:38)
[2023-09-13] MEDS: NALTREXONE 50 MG TABLET PO SCH (09:46)
[2023-09-13] MEDS: dilTIAZem ER 180 MG CAPSULE PO SCH (09:46)
[2023-09-13] MEDS: EMPAGLIFLOZIN 10 MG TABLET PO SCH (09:46)
[2023-09-13] MEDS: ALLOPURINOL 100 MG TABLET PO SCH (09:46)
[2023-09-13] MEDS: LORATADINE 10 MG TABLET PO SCH (09:46)
[2023-09-13] MEDS: TRIAMCINOLONE 0.1% CR (KENALOG) 15 GM TUBE TP SCH ×2 (09:46→20:39)
[2023-09-13] MEDS: APIXABAN 5 MG TABLET PO SCH ×2 (09:46→20:38)
[2023-09-13] MEDS: FERROUS SULFATE 325 MG (IRON) TABLET PO SCH (09:46)
--- NOTE | 2023-09-13 10:42 | Physical Therapy Daily Note ---
PT Daily Note-Current Subjective Pt found seated on toilet upon entry. Agreed to PT. Reports pain in neck but does not rate. States that pain has not really changed. Reports that her R hip stiffness is a little better today. Pain Section J - Health Conditions 1. Rarely or not at all 2. Occasionally 3. Frequently 4. Almost constantly 8. Unable to answer Pain Effect on Sleep: 2 Pain Interference with Therapy: 3 Pain Interference w/Day-to-Day: 3 Mental Status Patient Orientation: Person, Place Transfers SCALE: Activities may be completed with or without assistive devices. 1-Xqaezowrda-lidedgc completes the activity by him/herself with no assistance from a helper. 5-Set-up or Clean-up Assistance-helper sets up or cleans up; patient completes activity. [place] assists only prior to or following the activity. 4-Supervision or Touching Assistance-helper provides verbal cues and/or touching/steadying and/or contact guard assistance as patient completes activity. Assistance may be provided throughout the activity or intermittently. 3-Partial/Moderate Assistance-helper does LESS THAN HALF the effort. [place] lifts, holds or supports trunk or limbs, but provides less than half the effort. 2-Substantial/Maximal Assistance-helper does MORE THAN HALF the effort. [place] lifts or holds trunk or limbs and provides more than half the effort. 5-Noatueccd-vmmuxw does ALL the effort. Patient does none of the effort to complete the activity. Or, the assistance of 2 or more helpers is required for the patient to complete the activity. If activity was not attempted, code reason: 7-Patient Refused. 9-Not Applicable-not attempted and the patient did not perform the activity before the current illness, exacerbation or injury. 10-Not Attempted due to Environmental Limitations-(lack of equipment, weather restraints, etc.). 88-Not Attempted due to Medical Conditions or Safety Concerns. Sit to Stand (QC): 4 Toilet Transfer (QC): 3 Weight Bearing Right Lower Extremity: Right Weight Bearing/Tolerated Left Lower Extremity: Left Weight Bearing/Tolerated Cervical precautions: no lifting >2lbs, no pushing/pulling, or strenuous exercise for 4 weeks. No driving. WBAT on LEs. Wear neck collar at all times (change pads after getting out of the shower; keep head still while pads are being changed) Gait Training Does the Patient Walk?: Yes Distance: 120, 120 Walk 10 feet (QC): 4 Walk 50 ft with 2 Turns(QC): 4 Gait Persons Needed: 1 Gait Assistive Device: FWW Exercises NuStep Minutes: 15 NuStep Workload: 4 Treatments Seated Therapeutic Exercises (B) x 10 ea: - LAQs - Marching - Heel/toe raises - TA sets /c SWB - Hip add Assessment Current Status: Good Progress Pt performs toilet transfer /c MIN assist for lifting. Sit to stand transfer performed /c SBA for safety due to strength deficits. Pt performs all complete transfers slowly but does not lose balance. Pt ambulates /c use of a FWW up to 120 feet before requiring a seated rest break. Pt displays short step pattern, slightly forward head posture, and increased difficulty advancing RLE versus LLE. No loss of balance demonstrated during gait training. Pt tolerates all therapeutic exercises well but does require short seated rest breaks to complete standing activities. Pt left in recliner /c call light in place and all needs met post-treatment. Continue to progress pt per POC. PT Staff Anesthesiologist Goals Correction Goals PT Correction Goals Time Frame: Sep 24, 2023 Roll Left & Right (QC): 6 (Pt will be Mod I with functional mobility ) Sit to Lying (QC): 6 (Pt will be Mod I with functional mobility ) Lying-Sitting on Side/Bed(QC): 6 (Pt will be Mod I with functional mobility ) Sit to Stand (QC): 6 (Pt will be Mod I with functional mobility ) Chair/Jlb-fj-Ylung Xfer(QC): 6 (Pt will be Mod I with functional mobility ) Toilet Transfer (QC): 6 (Pt will be Mod I with functional mobility ) Car Transfer (QC): 6 (Pt will be Mod I with functional mobility ) Does the Patient Walk: Yes Walk 10 feet (QC): 6 (Pt will be Mod I with functional mobility ) Walk 50ft with 2 Turns (QC): 6 (Pt will be Mod I with functional mobility ) Walk 150 ft (QC): 6 (Pt will be Mod I with functional mobility ) Walking 10ft on Uneven Surface: 6 (Pt will be Mod I with functional mobility ) 1 Step (curb) (QC): 6 (Pt will be Mod I with functional mobility ) 4 Steps (QC): 6 (Pt will be Mod I with functional mobility ) 12 Steps (QC): 9 (Pt did not do at PLOF) Picking up an Object (QC): 6 (Pt will be Mod I with functional mobility ) Does the Pt use WC or Scooter?: No Wheel 50 feet with 2 turns (QC: 9 Type: N/A Wheel 150 feet: 9 Type: N/A PT Plan Treatment/Plan Treatment Plan: Continue Plan of Care Treatment Plan: Bed Mobility, Education, Functional Activity Khadar, Functional Strength, Group Therapy, Gait, Safety, Therapeutic Exercise, Transfers Treatment Duration: Sep 24, 2023 Frequency: At least 5 of 7 days/Wk (IRF) Estimated Hrs Per Day: 1.5 hours per day Patient and/or Family Agrees t: Yes Time Time In: 0930 Time Out: 1100 DATE: Sep 13, 2023 Total Billed Treatment Time: 90 Total Billed Treatment 1 visit EX x 3 GT x 2 FA x 1 LEBRON GARCIA PTA Sep 13, 2023 10:42
--- NOTE | 2023-09-13 11:05 | PM&R Progress Note ---
Subjective HPI/CC On Admission Date Seen by Provider: Sep 13, 2023 Time Seen by Provider: 11:00 Subjective/Events-last exam 09/13/2023: Doing well No pain reported until she moves hip No nausea Eating well 09/12/2023: Patient making slow recovery but improving Reviewed meds Pain is controlled No falls 09/11/2023: Patient doing well Denies any new problems Slowly ambulating Pain is controlled Bowels are moving 09/10/2023: Patient doing well Moving slowly Pain is controlled Reviewed labs and meds No other concerns Review of Systems General: Fatigue, Malaise Objective Exam Vital Signs Vital Signs Date Time Temp Pulse Resp B/P (MAP) Pulse Ox O2 Delivery O2 Flow Rate FiO2 09/13/23 09:00 Room Air 09/13/23 07:30 36.3 109 16 147/60 (89) 96 Capillary Refill : General Appearance: No Apparent Distress, WD/WN, Chronically ill, Thin, Other (frail, aspien collar in place) HEENT: PERRL/EOMI, Normal ENT Inspection, Pharynx Normal Neck: Full Range of Motion, Normal Inspection, Non Tender, Supple, Carotid Bruit Respiratory: Chest Non Tender, Lungs Clear, Normal Breath Sounds, No Accessory Muscle Use, No Respiratory Distress Cardiovascular: No Gallop, No JVD, No Murmur, Normal Peripheral Pulses, Irregularly Irregular Gastrointestinal: Normal Bowel Sounds, No Organomegaly, No Pulsatile Mass, Non Tender, Soft Back: Normal Inspection, No CVA Tenderness, No Vertebral Tenderness Extremity: Normal Capillary Refill, Normal Inspection, Normal Range of Motion (except left leg due to pain), Non Tender, No Calf Tenderness, Pedal Edema Neurologic/Psychiatric: Alert, Oriented x3, Normal Mood/Affect, crew lead II-XII Norm as Tested, Abnormal Gait, Motor Weakness (left leg) Skin: Normal Color, Warm/Dry, Other (venous stasis of legs) Lymphatic: No Adenopathy Results/Procedures Lab Patient resulted labs reviewed. FIM Transfers Therapy Code Descriptions/Definitions Functional [place] Measure: 0=Not Assessed/NA 4=Minimal Assistance 1=Total Assistance 5=Supervision or Setup 2=Maximal Assistance 6=Modified [place] 3=Moderate Assistance 7=Complete IndependenceSCALE: Activities may be completed with or without assistive devices. 7-Nruyinxwaa-ystbvdb completes the activity by him/herself with no assistance fr om a helper. 5-Set-up or Clean-up Assistance-helper sets up or cleans up; patient completes activity. [place] assists only prior to or following the activity. 4-Supervision or Touching Assistance-helper provides verbal cues and/or touching/steadying and/or contact guard assistance as patient completes activity. Assistance may be provided throughout the activity or intermittently. 3-Partial/Moderate Assistance-helper does LESS THAN HALF the effort. [place] lifts, holds or supports trunk or limbs, but provides less than half the effort. 2-Substantial/Maximal Assistance-helper does MORE THAN HALF the effort. [place] lifts or holds trunk or limbs and provides more than half the effort. 1-Gumeslrfw-xzgeiv does ALL the effort. Patient does none of the effort to complete the activity. Or, the assistance of 2 or more helpers is required for the patient to complete the activity. If activity was not attempted, code reason: 7-Patient Refused. 9-Not Applicable-not attempted and the patient did not perform the activity before the current illness, exacerbation or injury. 10-Not Attempted due to Environmental Limitations-(lack of equipment, weather restraints, etc.). 88-Not Attempted due to Medical Conditions or Safety Concerns. Roll Left to Right (QC): 3 (Min A ) Sit to Lying (QC): 3 (Min A ) Sit to Stand (QC): 4 Chair/Ahv-sh-Xxxbv Xfer(QC): 3 Car Transfer (QC): 3 (Min A ) Gait Training Does the Patient Walk?: Yes Distance: 120, 120 Walk 10 feet (QC): 4 Walk 50 ft with 2 Turns(QC): 4 Walk 150 ft (QC): 88 Walking 10ft/uneven surface-QC: 4 (CGA ) Gait Persons Needed: 1 Gait Assistive Device: FWW Wheelchair Training Does the Pt Use a Wheelchair?: Yes Wheel 50 ft with 2 turns (QC): 3 Wheel 150 ft (QC): 9 Type of Wheelchair: N/A Stair Training #of Steps: 1 1 Step (curb) (QC): 3 (Min A ) 4 Steps (QC): 88 (Pain, weakness) 12 Steps (QC): 88 (Pain, weakness) Balance Picking up an Object (QC): 4 (CGA with screen operator ) ADL-Treatment Eating (QC): 6 (IND with breakfast per pt report) Oral Hygiene (QC): 5 (standing at sink) Shower/Bathe Self (QC): 4 Upper Body Dressing (QC): 3 (Pt requiring help to don and doff C-collar ) Lower Body Dressing (QC): 3 On/Off Footwear (QC): 2 Toileting Hygiene (QC): 5 Toilet Transfer (QC): 4 Assessment/Plan Assessment and Plan Assess & Plan/Chief Complaint Assessment: C2 lateral mass fracture non-surgical type placed in [place] collar Left acetabular fracture non-surgical type Inferior ramus fracture AF OAC Advanced age CKD HTN HLP Fall risk CHFpEF Plan: PT OT Pain control BM regimen Monitor closely 09/10/2023: Supportive [facility] meds Pain control 09/11/2023: Supportive [facility] meds 09/12/2023: Supportive care Pain is controlled 09/13/2023: Continue aggressive rehab (1) Closed C2 fracture JULIÁN ALFREDO DO Sep 13, 2023 11:05
[2023-09-13 20:37] VITALS: BP 129/62
[2023-09-14] MEDS: POTASSIUM CHLORIDE 10 MEQ TABLET PO SCH (06:10)
[2023-09-14] MEDS: CYANOCOBALAMIN 1,000 MCG TABLET PO SCH (06:11)
[2023-09-14] MEDS: ACETAMINOPHEN 325 MG TABLET PO SCH ×3 (06:11→17:07)
[2023-09-14] MEDS: CALCIUM CARBONATE 600 MG +VITAMIN D TABLET PO SCH (06:11)
[2023-09-14] MEDS: inSUlin ASPART 1 UNIT/0.01 ML (PER UNIT) SC SCH ×2 (06:18→15:35)
[2023-09-14 08:15] VITALS: BP 144/63
[2023-09-14] MEDS: FERROUS SULFATE 325 MG (IRON) TABLET PO SCH (08:41)
[2023-09-14] MEDS: LORATADINE 10 MG TABLET PO SCH (08:42)
[2023-09-14] MEDS: ALLOPURINOL 100 MG TABLET PO SCH (08:42)
[2023-09-14] MEDS: EMPAGLIFLOZIN 10 MG TABLET PO SCH (08:42)
[2023-09-14] MEDS: APIXABAN 5 MG TABLET PO SCH ×2 (08:42→19:54)
[2023-09-14] MEDS: NALTREXONE 50 MG TABLET PO SCH (08:42)
[2023-09-14] MEDS: VALSARTAN 80 MG (DIOVAN) TAB PO SCH (08:42)
[2023-09-14] MEDS: FAMOTIDINE 20 MG TABLET PO SCH (08:42)
[2023-09-14] MEDS: dilTIAZem ER 180 MG CAPSULE PO SCH (08:42)
[2023-09-14] MEDS: DOCUSATE SODIUM 100 MG CAPSULE PO SCH ×2 (08:49→19:34)
[2023-09-14] MEDS: SENNA W/DOCUSATE TABLET PO SCH ×2 (08:49→19:34)
[2023-09-14] MEDS: TRIAMCINOLONE 0.1% CR (KENALOG) 15 GM TUBE TP SCH ×2 (08:49→19:54)
--- NOTE | 2023-09-14 15:26 | PM&R Progress Note ---
Subjective HPI/CC On Admission Date Seen by Provider: Sep 14, 2023 Time Seen by Provider: 15:30 Subjective/Events-last exam 09/14/2023: Much improved status Less pain Doing well otherwise Trying to increase her confidence 09/13/2023: Doing well No pain reported until she moves hip No nausea Eating well 09/12/2023: Patient making slow recovery but improving Reviewed meds Pain is controlled No falls 09/11/2023: Patient doing well Denies any new problems Slowly ambulating Pain is controlled Bowels are moving 09/10/2023: Patient doing well Moving slowly Pain is controlled Reviewed labs and meds No other concerns Review of Systems General: Fatigue, Malaise Objective Exam Vital Signs Vital Signs Date Time Temp Pulse Resp B/P (MAP) Pulse Ox O2 Delivery O2 Flow Rate FiO2 09/14/23 20:28 Room Air 09/14/23 19:45 36.9 101 16 137/64 (88) 97 Capillary Refill : General Appearance: No Apparent Distress, WD/WN, Chronically ill, Thin, Other (frail, aspien collar in place) HEENT: PERRL/EOMI, Normal ENT Inspection, Pharynx Normal Neck: Full Range of Motion, Normal Inspection, Non Tender, Supple, Carotid Bruit Respiratory: Chest Non Tender, Lungs Clear, Normal Breath Sounds, No Accessory Muscle Use, No Respiratory Distress Cardiovascular: No Gallop, No JVD, No Murmur, Normal Peripheral Pulses, Irregularly Irregular Gastrointestinal: Normal Bowel Sounds, No Organomegaly, No Pulsatile Mass, Non Tender, Soft Back: Normal Inspection, No CVA Tenderness, No Vertebral Tenderness Extremity: Normal Capillary Refill, Normal Inspection, Normal Range of Motion (except left leg due to pain), Non Tender, No Calf Tenderness, Pedal Edema Neurologic/Psychiatric: Alert, Oriented x3, Normal Mood/Affect, 3d artist II-XII Norm as Tested, Abnormal Gait, Motor Weakness (left leg) Skin: Normal Color, Warm/Dry, Other (venous stasis of legs) Lymphatic: No Adenopathy Results/Procedures Lab Patient resulted labs reviewed. FIM Transfers Therapy Code Descriptions/Definitions Functional [place] Measure: 0=Not Assessed/NA 4=Minimal Assistance 1=Total Assistance 5=Supervision or Setup 2=Maximal Assistance 6=Modified [place] 3=Moderate Assistance 7=Complete IndependenceSCALE: Activities may be completed with or without assistive devices. 5-Tamljhnhaw-fprrvkz completes the activity by him/herself with no assistance from a helper. 5-Set-up or Clean-up Assistance-helper sets up or cleans up; patient completes activity. [place] assists only prior to or following the activity. 4-Supervision or Touching Assistance-helper provides verbal cues and/or touching/steadying and/or contact guard assistance as patient completes activity. Assistance may be provided throughout the activity or intermittently. 3-Partial/Moderate Assistance-helper does LESS THAN HALF the effort. [place] lifts, holds or supports trunk or limbs, but provides less than half the effort. 2-Substantial/Maximal Assistance-helper does MORE THAN HALF the effort. [place] lifts or holds trunk or limbs and provides more than half the effort. 5-Xqtgiiaqp-vqgxgz does ALL the effort. Patient does none of the effort to complete the activity. Or, the assistance of 2 or more helpers is required for the patient to complete the activity. If activity was not attempted, code reason: 7-Patient Refused. 9-Not Applicable-not attempted and the patient did not perform the activity before the current illness, exacerbation or injury. 10-Not Attempted due to Environmental Limitations-(lack of equipment, weather restraints, etc.). 88-Not Attempted due to Medical Conditions or Safety Concerns. Roll Left to Right (QC): 3 (Min A ) Sit to Lying (QC): 3 (Min A ) Sit to Stand (QC): 4 Chair/Ftu-nf-Kqdks Xfer(QC): 3 Car Transfer (QC): 3 (Min A ) Gait Training Does the Patient Walk?: Yes Distance: 120, 120 Walk 10 feet (QC): 4 Walk 50 ft with 2 Turns(QC): 4 Walk 150 ft (QC): 88 Walking 10ft/uneven surface-QC: 4 (CGA ) Gait Persons Needed: 1 Gait Assistive Device: FWW Wheelchair Training Does the Pt Use a Wheelchair?: Yes Wheel 50 ft with 2 turns (QC): 3 Wheel 150 ft (QC): 9 Type of Wheelchair: N/A Stair Training #of Steps: 1 1 Step (curb) (QC): 3 (Min A ) 4 Steps (QC): 88 (Pain, weakness) 12 Steps (QC): 88 (Pain, weakness) Balance Picking up an Object (QC): 4 (CGA with control tower radio operator ) ADL-Treatment Eating (QC): 6 (IND with breakfast per pt report) Oral Hygiene (QC): 5 (standing at sink) Shower/Bathe Self (QC): 4 (with use of long handled sponge) Upper Body Dressing (QC): 3 (Pt requiring help to don and doff C-collar ) Lower Body Dressing (QC): 3 (Pt requiring assistance to thread legs through pants) On/Off Footwear (QC): 2 (Pt requiring max A to don and doff socks this session) Toileting Hygiene (QC): 6 (Pt completed toilet hygiene independently in sitting with no cues for safety) Toilet Transfer (QC): 4 (Pt completed toilet transfer with use of FWW and supervision for balance and safety. ) Assessment/Plan Assessment and Plan Assess & Plan/Chief Complaint Assessment: C2 lateral mass fracture non-surgical type placed in [place] collar Left acetabular fracture non-surgical type Inferior ramus fracture AF OAC Advanced age CKD HTN HLP Fall risk CHFpEF Plan: PT OT Pain control BM regimen Monitor closely 09/10/2023: Supportive correction meds Pain control 09/11/2023: Supportive correction meds 09/12/2023: Supportive care Pain is controlled 09/13/2023: Continue aggressive rehab 09/14/2023: Continue aggressive therapy (1) Closed C2 fracture JULIÁN ALFREDO DO Sep 14, 2023 15:26
[2023-09-14 19:45] VITALS: BP 137/64
[2023-09-15] MEDS: ACETAMINOPHEN 325 MG TABLET PO SCH ×5 (00:43→23:49)
--- NOTE | 2023-09-15 05:12 | PM&R Progress Note ---
Subjective HPI/CC On Admission Date Seen by Provider: Sep 15, 2023 Time Seen by Provider: 11:00 Subjective/Events-last exam 09/15/2023: Much improved overall Participation is good Therapy will focus on regaining function No falls 09/14/2023: Much improved status Less pain Doing well otherwise Trying to increase her confidence 09/13/2023: Doing well No pain reported until she moves hip No nausea Eating well 09/12/2023: Patient making slow recovery but improving Reviewed meds Pain is controlled No falls 09/11/2023: Patient doing well Denies any new problems Slowly ambulating Pain is controlled Bowels are moving 09/10/2023: Patient doing well Moving slowly Pain is controlled Reviewed labs and meds No other concerns Review of Systems General: Fatigue, Malaise Objective Exam Vital Signs Vital Signs Date Time Temp Pulse Resp B/P (MAP) Pulse Ox O2 Delivery O2 Flow Rate FiO2 09/15/23 21:42 35.9 76 16 148/65 (92) 98 Room Air Capillary Refill : General Appearance: No Apparent Distress, WD/WN, Chronically ill, Thin, Other (frail, aspien collar in place) HEENT: PERRL/EOMI, Normal ENT Inspection, Pharynx Normal Neck: Full Range of Motion, Normal Inspection, Non Tender, Supple, Carotid Bruit Respiratory: Chest Non Tender, Lungs Clear, Normal Breath Sounds, No Accessory Muscle Use, No Respiratory Distress Cardiovascular: No Gallop, No JVD, No Murmur, Normal Peripheral Pulses, Irregu larly Irregular Gastrointestinal: Normal Bowel Sounds, No Organomegaly, No Pulsatile Mass, Non Tender, Soft Back: Normal Inspection, No CVA Tenderness, No Vertebral Tenderness Extremity: Normal Capillary Refill, Normal Inspection, Normal Range of Motion (except left leg due to pain), Non Tender, No Calf Tenderness, Pedal Edema Neurologic/Psychiatric: Alert, Oriented x3, Normal Mood/Affect, acid tank liner II-XII Norm as Tested, Abnormal Gait, Motor Weakness (left leg) Skin: Normal Color, Warm/Dry, Other (venous stasis of legs) Lymphatic: No Adenopathy Results/Procedures Lab Laboratory Tests 09/15/23 05:36 Patient resulted labs reviewed. FIM Transfers Therapy Code Descriptions/Definitions Functional [place] Measure: 0=Not Assessed/NA 4=Minimal Assistance 1=Total Assistance 5=Supervision or Setup 2=Maximal Assistance 6=Modified [place] 3=Moderate Assistance 7=Complete IndependenceSCALE: Activities may be completed with or without assistive devices. 7-Wxartvwhgr-biqfkln completes the activity by him/herself with no assistance from a helper. 5-Set-up or Clean-up Assistance-helper sets up or cleans up; patient completes activity. [place] assists only prior to or following the activity. 4-Supervision or Touching Assistance-helper provides verbal cues and/or touching/steadying and/or contact guard assistance as patient completes activity. Assistance may be provided throughout the activity or intermittently. 3-Partial/Moderate Assistance-helper does LESS THAN HALF the effort. [place] lifts, holds or supports trunk or limbs, but provides less than half the effort. 2-Substantial/Maximal Assistance-helper does MORE THAN HALF the effort. [place] lifts or holds trunk or limbs and provides more than half the effort. 0-Jaupaxhpc-gixirh does ALL the effort. Patient does none of the effort to complete the activity. Or, the assistance of 2 or more helpers is required for the patient to complete the activity. If activity was not attempted, code reason: 7-Patient Refused. 9-Not Applicable-not attempted and the patient did not perform the activity before the current illness, exacerbation or injury. 10-Not Attempted due to Environmental Limitations-(lack of equipment, weather restraints, etc.). 88-Not Attempted due to Medical Conditions or Safety Concerns. Roll Left to Right (QC): 3 (Min A ) Sit to Lying (QC): 3 (Min A ) Sit to Stand (QC): 4 Chair/Nfl-ak-Xmwri Xfer(QC): 3 Car Transfer (QC): 3 (Min A ) Gait Training Does the Patient Walk?: Yes Distance: 120, 120 Walk 10 feet (QC): 4 Walk 50 ft with 2 Turns(QC): 4 Walk 150 ft (QC): 88 Walking 10ft/uneven surface-QC: 4 (CGA ) Gait Persons Needed: 1 Gait Assistive Device: FWW Wheelchair Training Does the Pt Use a Wheelchair?: Yes Wheel 50 ft with 2 turns (QC): 3 Wheel 150 ft (QC): 9 Type of Wheelchair: N/A Stair Training #of Steps: 1 1 Step (curb) (QC): 3 (Min A ) 4 Steps (QC): 88 (Pain, weakness) 12 Steps (QC): 88 (Pain, weakness) Balance Picking up an Object (QC): 4 (CGA with garden worker ) ADL-Treatment Eating (QC): 6 (IND with breakfast per pt report) Oral Hygiene (QC): 5 (standing at sink) Shower/Bathe Self (QC): 4 (with use of long handled sponge) Upper Body Dressing (QC): 3 (Pt requiring help to don and doff C-collar ) Lower Body Dressing (QC): 3 (Pt requiring assistance to thread legs through pants) On/Off Footwear (QC): 2 (Pt requiring max A to don and doff socks this session) Toileting Hygiene (QC): 6 (Pt completed toilet hygiene independently in sitting with no cues for safety) Toilet Transfer (QC): 4 (Pt completed toilet transfer with use of FWW and supervision for balance and safety. ) Assessment/Plan Assessment and Plan Assess & Plan/Chief Complaint Assessment: C2 lateral mass fracture non-surgical type placed in [place] collar Left acetabular fracture non-surgical type Inferior ramus fracture AF OAC Advanced age CKD HTN HLP Fall risk CHFpEF Plan: PT OT Pain control BM regimen Monitor closely 09/10/2023: Supportive [facility] meds Pain control 09/11/2023: Supportive [facility] meds 09/12/2023: Supportive care Pain is controlled 09/13/2023: Continue aggressive rehab 09/14/2023: Continue aggressive therapy 09/15/2023: Continue aggressive therapy (1) Closed C2 fracture JULIÁN ALFREDO DO Sep 15, 2023 05:12
[2023-09-15 05:57] LABS: BASOPHILS # (AUTO) 0.2 10^3/uL (0.0-0.1); BASOPHILS % (AUTO) 2 % (0-10); EOSINOPHILS # (AUTO) 1.7 10^3/uL (0.0-0.3); EOSINOPHILS % (AUTO) 16 % (0-10); HEMATOCRIT 27 % (35-52); HEMOGLOBIN 8.3 g/dL (11.5-16.0); LYMPHOCYTES # (AUTO) 0.9 10^3/uL (1.0-4.0); LYMPHOCYTES % (AUTO) 9 % (12-44); MEAN CORPUSCULAR HEMOGLOBIN 30 pg (25-34); MEAN CORPUSCULAR HGB CONC 31 g/dL (32-36); MEAN CORPUSCULAR VOLUME 97 fL (80-99); MEAN PLATELET VOLUME 10.6 fL (9.0-12.2); MONOCYTES % (AUTO) 10 % (0-12); NEUTROPHILS # (AUTO) 6.5 10^3/uL (1.8-7.8); NEUTROPHILS % (AUTO) 63 % (42-75); PLATELET COUNT 510 10^3/uL (130-400); WHITE BLOOD COUNT 10.3 10^3/uL (4.3-11.0)
[2023-09-15] MEDS: CALCIUM CARBONATE 600 MG +VITAMIN D TABLET PO SCH (06:17)
[2023-09-15] MEDS: CYANOCOBALAMIN 1,000 MCG TABLET PO SCH (06:17)
[2023-09-15] MEDS: POTASSIUM CHLORIDE 10 MEQ TABLET PO SCH (06:17)
[2023-09-15 06:23] LABS: ALBUMIN 3.4 GM/DL (3.2-4.5); BILIRUBIN,TOTAL 0.5 MG/DL (0.1-1.0); CALCIUM 8.8 MG/DL (8.5-10.1); CREATININE SERUM 1.18 MG/DL (0.60-1.30); POTASSIUM 4.5 MMOL/L (3.6-5.0); TOTAL PROTEIN 6.4 GM/DL (6.4-8.2)
[2023-09-15] MEDS: inSUlin ASPART 1 UNIT/0.01 ML (PER UNIT) SC SCH ×2 (06:27→15:58)
[2023-09-15] MEDS: ALLOPURINOL 100 MG TABLET PO SCH (07:44)
[2023-09-15] MEDS: VALSARTAN 80 MG (DIOVAN) TAB PO SCH (07:44)
[2023-09-15] MEDS: APIXABAN 5 MG TABLET PO SCH ×2 (07:45→20:56)
[2023-09-15] MEDS: FAMOTIDINE 20 MG TABLET PO SCH (07:45)
[2023-09-15] MEDS: dilTIAZem ER 180 MG CAPSULE PO SCH (07:45)
[2023-09-15] MEDS: LORATADINE 10 MG TABLET PO SCH (07:45)
[2023-09-15] MEDS: EMPAGLIFLOZIN 10 MG TABLET PO SCH (07:46)
[2023-09-15] MEDS: NALTREXONE 50 MG TABLET PO SCH (07:46)
[2023-09-15] MEDS: FERROUS SULFATE 325 MG (IRON) TABLET PO SCH (07:46)
[2023-09-15] MEDS: TRIAMCINOLONE 0.1% CR (KENALOG) 15 GM TUBE TP SCH ×2 (07:50→20:56)
[2023-09-15 08:00] VITALS: BP 146/67
[2023-09-15] MEDS: DOCUSATE SODIUM 100 MG CAPSULE PO SCH ×2 (09:38→20:59)
[2023-09-15] MEDS: SENNA W/DOCUSATE TABLET PO SCH ×2 (09:38→20:59)
--- NOTE | 2023-09-15 11:21 | Occupational Ther Daily Note ---
OT Current Status-Daily Note Subjective Pt agreeable to OT Tx. ADL-Treatment Therapy Code Descriptions/Definitions Functional [place] Measure: 0=Not Assessed/NA 4=Minimal Assistance 1=Total Assistance 5=Supervision or Setup 2=Maximal Assistance 6=Modified [place] 3=Moderate Assistance 7=Complete IndependenceSCALE: Activities may be completed with or without assistive devices. 9-Ubrstbarcr-xsydfem completes the activity by him/herself with no assistance from a helper. 5-Set-up or Clean-up Assistance-helper sets up or cleans up; patient completes activity. [place] assists only prior to or following the activity. 4-Supervision or Touching Assistance-helper provides verbal cues and/or touching/steadying and/or contact guard assistance as patient completes activity. Assistance may be provided throughout the activity or intermittently. 3-Partial/Moderate Assistance-helper does LESS THAN HALF the effort. [place] lifts, holds or supports trunk or limbs, but provides less than half the effort. 2-Substantial/Maximal Assistance-helper does MORE THAN HALF the effort. [place] lifts or holds trunk or limbs and provides more than half the effort. 8-Rxankjwga-hbnluk does ALL the effort. Patient does none of the effort to complete the activity. Or, the assistance of 2 or more helpers is required for the patient to complete the activity. If activity was not attempted, code reason: 7-Patient Refused. 9-Not Applicable-not attempted and the patient did not perform the activity before the current illness, exacerbation or injury. 10-Not Attempted due to Environmental Limitations-(lack of equipment, weather restraints, etc.). 88-Not Attempted due to Medical Conditions or Safety Concerns. Shower/Bathe Self (QC): 4 (Supervision, min VCs) Upper Body Dressing (QC): 3 (set up with button up shirt, assist with c collar) Lower Body Dressing (QC): 4 (SBA, min Vcs. Pt used AE as needed to thread LE clothes) Other Treatment Pt in recliner, sit to stand from recliner, SBA, then performed functional mobility into bathroom and onto WI, SBA. Pt doffed clothes, using AE as needed, min VCs for safety/sequencing. Pt completed shower, supervision required in standing. Pt able to wash/dry all parts using LH sponge for LEs. After shower, OT assisted pt with changing pads on C collar. Pt donned shirt with set up, SBA to don brief using AE as needed. Post tx, RN present to assist pt with footwear, all needs met. Education OT Patient Education: Correct positioning, Energy conservation, Modified ADL techniques, Progress toward Goal/Update tx plan, Purpose of tx/functional activities, Rehab process Teaching Recipient: Patient Teaching Methods: Discussion Response to Teaching: Verbalize Understanding OT Short Term Goals Short Term Goals Time Frame: Sep 17, 2023 Shower/bathe self: 4 Putting on/taking off footwear: 4 OT Fiction Writer Goals Halfway Goals Time Frame: Sep 26, 2023 Acute change in mental status: 0 Inattention: 0 Disorganized thinkin Altered level of consciousness: 0 Eating (QC): 6 Oral Hygiene (QC): 6 Toileting Hygiene (QC): 6 Shower/Bathe Self (QC): 6 Upper Body Dressing (QC): 6 Lower Body Dressing (QC): 6 On/Off Footwear (QC): 6 (slip on shoes only) Additional Goals: 1-Demonstrate ADL Tasks, 2-Verbalize Understanding, 3- ImproveStrength/[place]had[place] 1=Demonstrate adherence to instructed precautions during ADL tasks. 2=Patient will verbalize/demonstrate understanding of assistive devices/modifications for ADL. 3=Patient will improve strength/tolerance for activity to enable patient to perform ADL's. OT Education/Plan Problem List/Assessment Assessment: Decreased Activ Tolerance, Decreased UE Strength, Impaired Funct Balance, Impaired I ADL's, Impaired Self-Care Skills Discharge Recommendations Plan/Recommendations: Continue POC Treatment Plan/Plan of Care Patient would benefit from OT for education, treatment and training to promote independence in ADL's, mobility, safety and/or upper extremity function for ADL's. Plan of Care: ADL Retraining, Functional Mobility, Group Exercise/Act as Ind, UE Funct Exercise/Act Treatment Duration: Sep 26, 2023 Frequency: At least 5 of 7 days/Wk (IRF) Estimated Hrs Per Day: 1.5 hours per day Agreement: Yes Rehab Potential: Good Time Start Time: 10:15 Stop Time: 11:15 DATE: Sep 15, 2023 Total Time Billed (hr/min): 60 Billed Treatment Time 1, ADL 4 COLIN FRIEND OT Sep 15, 2023 11:21
--- NOTE | 2023-09-15 11:59 | Physical Therapy Daily Note ---
PT Daily Note-Current Subjective Pt sitting in recliner upon arrival. Pt agrees to PT. Pain Numeric Pain Scale: 4 Location: Left Location Body Site: Hip Pain Description: Ache Section J - Health Conditions 1. Rarely or not at all 2. Occasionally 3. Frequently 4. Almost constantly 8. Unable to answer Pain Effect on Sleep: 2 Pain Interference with Therapy: 3 Pain Interference w/Day-to-Day: 3 Mental Status Patient Orientation: Person, Place, Time, Situation Attachments: Other-See Comments (Cervical Collar) Transfers SCALE: Activities may be completed with or without assistive devices. 7-Cjrjdgxjht-kpqgaso completes the activity by him/herself with no assistance from a helper. 5-Set-up or Clean-up Assistance-helper sets up or cleans up; patient completes activity. [place] assists only prior to or following the activity. 4-Supervision or Touching Assistance-helper provides verbal cues and/or touching/steadying and/or contact guard assistance as patient completes activity. Assistance may be provided throughout the activity or intermittently. 3-Partial/Moderate Assistance-helper does LESS THAN HALF the effort. [place] lifts, holds or supports trunk or limbs, but provides less than half the effort. 2-Substantial/Maximal Assistance-helper does MORE THAN HALF the effort. [place] lifts or holds trunk or limbs and provides more than half the effort. 2-Zlfhsprgh-qxgnbt does ALL the effort. Patient does none of the effort to complete the activity. Or, the assistance of 2 or more helpers is required for the patient to complete the activity. If activity was not attempted, code reason: 7-Patient Refused. 9-Not Applicable-not attempted and the patient did not perform the activity before the current illness, exacerbation or injury. 10-Not Attempted due to Environmental Limitations-(lack of equipment, weather restraints, etc.). 88-Not Attempted due to Medical Conditions or Safety Concerns. Sit to Stand (QC): 4 (CGA) Toilet Transfer (QC): 4 (CGA) Weight Bearing Right Lower Extremity: Right Weight Bearing/Tolerated Left Lower Extremity: Left Weight Bearing/Tolerated Cervical precautions: no lifting >2lbs, no pushing/pulling, or strenuous exercise for 4 weeks. No driving. WBAT on LEs. Wear neck collar at all times (change pads after getting out of the shower; keep head still while pads are being changed) Gait Training Does the Patient Walk?: Yes Distance: 85' x2 Walk 10 feet (QC): 5 Walk 50 ft with 2 Turns(QC): 5 Gait Assistive Device: FWW RB after each 85' Exercises Seated Therapy Exercises: Ankle pumps, Long arc quads, Hip flexion, Hip abd/add, Glut set Seated Reps: 15 Treatments Pt completes Seated EX then TF to standing. Pt uses BR then amb in hallway. Pt takes RB then amb in hallway, returning to room. Pt rests in recliner w/all needs met, call light in hand Assessment Current Status: Good Progress Pt reports decreased pain while walking, increased speed/gait. PT Ladle Puller Goals Shelter Goals PT Shelter Goals Time Frame: Sep 24, 2023 Roll Left & Right (QC): 6 (Pt will be Mod I with functional mobility ) Sit to Lying (QC): 6 (Pt will be Mod I with functional mobility ) Lying-Sitting on Side/Bed(QC): 6 (Pt will be Mod I with functional mobility ) Sit to Stand (QC): 6 (Pt will be Mod I with functional mobility ) Chair/Yal-vv-Ckbrl Xfer(QC): 6 (Pt will be Mod I with functional mobility ) Toilet Transfer (QC): 6 (Pt will be Mod I with functional mobility ) Car Transfer (QC): 6 (Pt will be Mod I with functional mobility ) Does the Patient Walk: Yes Walk 10 feet (QC): 6 (Pt will be Mod I with functional mobility ) Walk 50ft with 2 Turns (QC): 6 (Pt will be Mod I with functional mobility ) Walk 150 ft (QC): 6 (Pt will be Mod I with functional mobility ) Walking 10ft on Uneven Surface: 6 (Pt will be Mod I with functional mobility ) 1 Step (curb) (QC): 6 (Pt will be Mod I with functional mobility ) 4 Steps (QC): 6 (Pt will be Mod I with functional mobility ) 12 Steps (QC): 9 (Pt did not do at PLOF) Picking up an Object (QC): 6 (Pt will be Mod I with functional mobility ) Does the Pt use WC or Scooter?: No Wheel 50 feet with 2 turns (QC: 9 Type: N/A Wheel 150 feet: 9 Type: N/A PT Plan Problem List Problem List: Activity Tolerance, Gait Treatment/Plan Treatment Plan: Continue Plan of Care Treatment Plan: Bed Mobility, Education, Functional Activity Khadar, Functional Strength, Group Therapy, Gait, Safety, Therapeutic Exercise, Transfers Treatment Duration: Sep 24, 2023 Frequency: At least 5 of 7 days/Wk (IRF) Estimated Hrs Per Day: 1.5 hours per day Patient and/or Family Agrees t: Yes Safety Risks/Education Patient Education: Gait Training, Correct Positioning Teaching Recipient: Patient Teaching Methods: Discussion Response to Teaching: Verbalize Understanding Time Time In: 0800 Time Out: 0900 DATE: Sep 15, 2023 Total Billed Treatment Time: 60 Total Billed Treatment 1,FA (15m), EX (15m), GT x2 (30m) JESUS DONNELLY LANDSCAPER HELPER Sep 15, 2023 11:59
--- NOTE | 2023-09-15 14:02 | Physical Therapy Progress Note ---
Therapy Progress Note Call placed to Sarah Velarde, patients daughter, per social work's request, to give update on patient's functional status. All questions answered. Daughter will also be available by phone for family training on 09/17/23 at 9am Karuna Hale PT Sep 15, 2023 14:02
--- NOTE | 2023-09-15 14:50 | Occupational Ther Daily Note ---
OT Current Status-Daily Note Subjective Pt agreeable to therapy tx ADL-Treatment Therapy Code Descriptions/Definitions Functional Royal Measure: 0=Not Assessed/NA 4=Minimal Assistance 1=Total Assistance 5=Supervision or Setup 2=Maximal Assistance 6=Modified Royal 3=Moderate Assistance 7=Complete IndependenceSCALE: Activities may be completed with or without assistive devices. 5-Hygjzghpcz-chslbeq completes the activity by him/herself with no assistance from a helper. 5-Set-up or Clean-up Assistance-helper sets up or cleans up; patient completes activity. [place] assists only prior to or following the activity. 4-Supervision or Touching Assistance-helper provides verbal cues and/or touching/steadying and/or contact guard assistance as patient completes activity. Assistance may be provided throughout the activity or intermittently. 3-Partial/Moderate Assistance-helper does LESS THAN HALF the effort. [place] lifts, holds or supports trunk or limbs, but provides less than half the effort. 2-Substantial/Maximal Assistance-helper does MORE THAN HALF the effort. [place] lifts or holds trunk or limbs and provides more than half the effort. 6-Duewgitdz-nbgqry does ALL the effort. Patient does none of the effort to complete the activity. Or, the assistance of 2 or more helpers is required for the patient to complete the activity. If activity was not attempted, code reason: 7-Patient Refused. 9-Not Applicable-not attempted and the patient did not perform the activity before the current illness, exacerbation or injury. 10-Not Attempted due to Environmental Limitations-(lack of equipment, weather restraints, etc.). 88-Not Attempted due to Medical Conditions or Safety Concerns. Other Treatment OT/PT cotreat due to skill of 2 clinicians required which a vocational rehabilitation technician could not perform in order to coordinate UE/LEs, decrease fall risk, and due to pt's limitations in strength, activity tolerance, mobility/transfers and anxiety about her current LOF. OT focused on UE placement, cues for sequencing and safety and ADLs, PT focused on LE placement, gross overall movement, transfers and mobility. SBA sit to stand from recliner, SBA transfer into bathroom using FWW. Pt completed toileting, SBA, then stood at sink to wash hands, SBA. Pt performed functional mobility around [facility] common area, 170' using FWW, SBA. Pt returned to her room, transferring to recliner, SBA. During mobility, pt educated on current LOF with ADLs and mobility, with encouragement provided on how well pt is progressing. Pt expressed that she doesn't feel like she is doing well and she isn't walking yet, thus she is unable to return to [facility]. Therapists provided therapeutic communication, encouraging pt that she just walked 170' with SBA, but she was completing ADLs and transfers herself. Post tx, pt in recliner, call light in reach and all needs met. OT Short Term Goals Short Term Goals Time Frame: Sep 17, 2023 Shower/bathe self: 4 Putting on/taking off footwear: 4 OT Shelving Supervisor Goals Shelving Supervisor Goals Time Frame: Sep 26, 2023 Acute change in mental status: 0 Inattention: 0 Disorganized thinkin Altered level of consciousness: 0 Eating (QC): 6 Oral Hygiene (QC): 6 Toileting Hygiene (QC): 6 Shower/Bathe Self (QC): 6 Upper Body Dressing (QC): 6 Lower Body Dressing (QC): 6 On/Off Footwear (QC): 6 (slip on shoes only) Additional Goals: 1-Demonstrate ADL Tasks, 2-Verbalize Understanding, 3- ImproveStrength/Khadar 1=Demonstrate adherence to instructed precautions during ADL tasks. 2=Patient will verbalize/demonstrate understanding of assistive devices/modifications for ADL. 3=Patient will improve strength/tolerance for activity to enable patient to perform ADL's. OT Education/Plan Problem List/Assessment Assessment: Decreased Activ Tolerance, Decreased UE Strength, Impaired Funct Balance, Impaired I ADL's, Impaired Self-Care Skills Discharge Recommendations Plan/Recommendations: Continue POC Treatment Plan/Plan of Care Patient would benefit from OT for education, treatment and training to promote independence in ADL's, mobility, safety and/or upper extremity function for ADL's. Plan of Care: ADL Retraining, Functional Mobility, Group Exercise/Act as Ind, UE Funct Exercise/Act Treatment Duration: Sep 26, 2023 Frequency: At least 5 of 7 days/Wk (IRF) Estimated Hrs Per Day: 1.5 hours per day Agreement: Yes Rehab Potential: Good Time Start Time: 14:00 Stop Time: 14:30 DATE: Sep 15, 2023 Total Time Billed (hr/min): 30 Billed Treatment Time cotreat x30' 1, ADL (10'), FA (20') COLIN FRIEND OT Sep 15, 2023 14:50
--- NOTE | 2023-09-15 16:09 | Physical Therapy Daily Note ---
PT Daily Note-Current Subjective Pt sitting in recliner upon arrival. Pt agrees to PT/OT co-treat as needed. Pain Numeric Pain Scale: 4 Location: Left Location Body Site: Hip Pain Description: Ache Section J - Health Conditions 1. Rarely or not at all 2. Occasionally 3. Frequently 4. Almost constantly 8. Unable to answer Pain Effect on Sleep: 2 Pain Interference with Therapy: 3 Pain Interference w/Day-to-Day: 3 Mental Status Patient Orientation: Person, Place, Time, Situation Transfers SCALE: Activities may be completed with or without assistive devices. 1-Gpqodliqpm-febuaik completes the activity by him/herself with no assistance from a helper. 5-Set-up or Clean-up Assistance-helper sets up or cleans up; patient completes activity. [place] assists only prior to or following the activity. 4-Supervision or Touching Assistance-helper provides verbal cues and/or touching/steadying and/or contact guard assistance as patient completes activity. Assistance may be provided throughout the activity or intermittently. 3-Partial/Moderate Assistance-helper does LESS THAN HALF the effort. [place] lifts, holds or supports trunk or limbs, but provides less than half the effort. 2-Substantial/Maximal Assistance-helper does MORE THAN HALF the effort. [place] lifts or holds trunk or limbs and provides more than half the effort. 7-Bahancmjd-tlcwcn does ALL the effort. Patient does none of the effort to complete the activity. Or, the assistance of 2 or more helpers is required for the patient to complete the activity. If activity was not attempted, code reason: 7-Patient Refused. 9-Not Applicable-not attempted and the patient did not perform the activity before the current illness, exacerbation or injury. 10-Not Attempted due to Environmental Limitations-(lack of equipment, weather restraints, etc.). 88-Not Attempted due to Medical Conditions or Safety Concerns. Sit to Stand (QC): 4 Chair/Ojd-sj-Fbscj Xfer(QC): 4 Toilet Transfer (QC): 4 Weight Bearing Right Lower Extremity: Right Weight Bearing/Tolerated Left Lower Extremity: Left Weight Bearing/Tolerated Cervical precautions: no lifting >2lbs, no pushing/pulling, or strenuous exercise for 4 weeks. No driving. WBAT on LEs. Wear neck collar at all times (change pads after getting out of the shower; keep head still while pads are being changed) Gait Training Does the Patient Walk?: Yes Distance: 170' Walk 10 feet (QC): 5 Walk 50 ft with 2 Turns(QC): 5 Walk 150 ft (QC): 5 Gait Assistive Device: FWW Wheelchair Training Does the Pt Use a Wheelchair?: No Treatments Pt TF from recliner to standing, amb to BR then amb in hallway before having to turn around due to pain and fatigue. Pt amb back to room to rest in recliner at end of tx. All needs met, call light in hand. Assessment Current Status: Good Progress Distance of ambulation has increased as well as no increase in pain at this time. [place] of walking is still slower than pt wants but has improved. PT Hospice Music Therapy Goals Snf Goals PT Hospice Music Therapy Goals Time Frame: Sep 24, 2023 Roll Left & Right (QC): 6 (Pt will be Mod I with functional mobility ) Sit to Lying (QC): 6 (Pt will be Mod I with functional mobility ) Lying-Sitting on Side/Bed(QC): 6 (Pt will be Mod I with functional mobility ) Sit to Stand (QC): 6 (Pt will be Mod I with functional mobility ) Chair/Prx-lp-Yccou Xfer(QC): 6 (Pt will be Mod I with functional mobility ) Toilet Transfer (QC): 6 (Pt will be Mod I with functional mobility ) Car Transfer (QC): 6 (Pt will be Mod I with functional mobility ) Does the Patient Walk: Yes Walk 10 feet (QC): 6 (Pt will be Mod I with functional mobility ) Walk 50ft with 2 Turns (QC): 6 (Pt will be Mod I with functional mobility ) Walk 150 ft (QC): 6 (Pt will be Mod I with functional mobility ) Walking 10ft on Uneven Surface: 6 (Pt will be Mod I with functional mobility ) 1 Step (curb) (QC): 6 (Pt will be Mod I with functional mobility ) 4 Steps (QC): 6 (Pt will be Mod I with functional mobility ) 12 Steps (QC): 9 (Pt did not do at PLOF) Picking up an Object (QC): 6 (Pt will be Mod I with functional mobility ) Does the Pt use WC or Scooter?: No Wheel 50 feet with 2 turns (QC: 9 Type: N/A Wheel 150 feet: 9 Type: N/A PT Plan Problem List Problem List: Gait Treatment/Plan Treatment Plan: Continue Plan of Care Treatment Plan: Bed Mobility, Education, Functional Activity Khadar, Functional Strength, Group Therapy, Gait, Safety, Therapeutic Exercise, Transfers Treatment Duration: Sep 24, 2023 Frequency: At least 5 of 7 days/Wk (IRF) Estimated Hrs Per Day: 1.5 hours per day Patient and/or Family Agrees t: Yes Safety Risks/Education Patient Education: Gait Training, Correct Positioning Teaching Recipient: Patient Teaching Methods: Discussion Response to Teaching: Verbalize Understanding Time Time In: 1400 Time Out: 1430 DATE: Sep 15, 2023 Total Billed Treatment Time: 30 Total Billed Treatment 1, GT x2 (30m) JESUS DONNELLY PTA Sep 15, 2023 16:09
[2023-09-15] MEDS: diphenhydrAMINE 25 MG TABLET PO PRN (17:45)
[2023-09-15 20:39] VITALS: BP 147/66
[2023-09-15 21:42] VITALS: BP 148/65
[2023-09-16] MEDS: diphenhydrAMINE 25 MG TABLET PO PRN ×3 (02:47→20:14)
[2023-09-16] MEDS: oxyCODONE IMMEDIATE RELEASE 5 MG TABLET PO PRN (02:47)
[2023-09-16] MEDS: POTASSIUM CHLORIDE 10 MEQ TABLET PO SCH (06:20)
[2023-09-16] MEDS: CYANOCOBALAMIN 1,000 MCG TABLET PO SCH (06:20)
[2023-09-16] MEDS: ACETAMINOPHEN 325 MG TABLET PO SCH ×4 (06:20→22:46)
[2023-09-16] MEDS: CALCIUM CARBONATE 600 MG +VITAMIN D TABLET PO SCH (06:21)
[2023-09-16] MEDS: inSUlin ASPART 1 UNIT/0.01 ML (PER UNIT) SC SCH ×2 (06:23→16:26)
[2023-09-16 08:00] VITALS: BP 144/67
[2023-09-16] MEDS: ALLOPURINOL 100 MG TABLET PO SCH (09:08)
[2023-09-16] MEDS: FERROUS SULFATE 325 MG (IRON) TABLET PO SCH (09:08)
[2023-09-16] MEDS: VALSARTAN 80 MG (DIOVAN) TAB PO SCH (09:08)
[2023-09-16] MEDS: DOCUSATE SODIUM 100 MG CAPSULE PO SCH ×2 (09:08→20:21)
[2023-09-16] MEDS: APIXABAN 5 MG TABLET PO SCH ×2 (09:08→20:12)
[2023-09-16] MEDS: FAMOTIDINE 20 MG TABLET PO SCH (09:08)
[2023-09-16] MEDS: NALTREXONE 50 MG TABLET PO SCH (09:09)
[2023-09-16] MEDS: EMPAGLIFLOZIN 10 MG TABLET PO SCH (09:09)
[2023-09-16] MEDS: LORATADINE 10 MG TABLET PO SCH (09:09)
[2023-09-16] MEDS: dilTIAZem ER 180 MG CAPSULE PO SCH (09:10)
[2023-09-16] MEDS: SENNA W/DOCUSATE TABLET PO SCH ×2 (09:10→20:21)
--- NOTE | 2023-09-16 09:12 | Physical Therapy Daily Note ---
PT Daily Note-Current Subjective Pt sitting in recliner upon arrival. Pt agrees to PT. Pain Numeric Pain Scale: 4 Location: Left, Lower Location Body Site: Hip Pain Description: Ache, Dull Section J - Health Conditions 1. Rarely or not at all 2. Occasionally 3. Frequently 4. Almost constantly 8. Unable to answer Pain Effect on Sleep: 2 Pain Interference with Therapy: 3 Pain Interference w/Day-to-Day: 3 Mental Status Patient Orientation: Person, Place, Time, Situation Attachments: Other-See Comments (Cevical Collar) Transfers SCALE: Activities may be completed with or without assistive devices. 0-Prwxmcqapp-uvfrato completes the activity by him/herself with no assistance from a helper. 5-Set-up or Clean-up Assistance-helper sets up or cleans up; patient completes activity. [place] assists only prior to or following the activity. 4-Supervision or Touching Assistance-helper provides verbal cues and/or touching/steadying and/or contact guard assistance as patient completes activity. Assistance may be provided throughout the activity or intermittently. 3-Partial/Moderate Assistance-helper does LESS THAN HALF the effort. [place] lifts, holds or supports trunk or limbs, but provides less than half the effort. 2-Substantial/Maximal Assistance-helper does MORE THAN HALF the effort. [place] lifts or holds trunk or limbs and provides more than half the effort. 8-Cbrnzlzcg-pvocwx does ALL the effort. Patient does none of the effort to complete the activity. Or, the assistance of 2 or more helpers is required for the patient to complete the activity. If activity was not attempted, code reason: 7-Patient Refused. 9-Not Applicable-not attempted and the patient did not perform the activity before the current illness, exacerbation or injury. 10-Not Attempted due to Environmental Limitations-(lack of equipment, weather restraints, etc.). 88-Not Attempted due to Medical Conditions or Safety Concerns. Sit to Stand (QC): 5 Toilet Transfer (QC): 5 Weight Bearing Right Lower Extremity: Right Weight Bearing/Tolerated Left Lower Extremity: Left Weight Bearing/Tolerated Cervical precautions: no lifting >2lbs, no pushing/pulling, or strenuous exercise for 4 weeks. No driving. WBAT on LEs. Wear neck collar at all times (change pads after getting out of the shower; keep head still while pads are being changed) Gait Training Does the Patient Walk?: Yes Distance: 220' Walk 10 feet (QC): 5 Walk 50 ft with 2 Turns(QC): 5 Walk 150 ft (QC): 5 Gait Assistive Device: FWW Walks w/analgetic gait when WB on L side & advancing R leg. Wheelchair Training Does the Pt Use a Wheelchair?: No Treatments TF to standing and amb to BR to toilet. After toileting, pt completes pericare & washes hands. Pt amb in hallway before returning to room to rest in recliner. All needs met, call light in hand. Assessment Current Status: Good Progress Pt is able to amb farther distance w/o increase in pain. [place] remains slow but steady w/o LOB. PT Manufacturing Engineering Technologist Goals Fdc Goals PT Manufacturing Engineering Technologist Goals Time Frame: Sep 24, 2023 Roll Left & Right (QC): 6 (Pt will be Mod I with functional mobility ) Sit to Lying (QC): 6 (Pt will be Mod I with functional mobility ) Lying-Sitting on Side/Bed(QC): 6 (Pt will be Mod I with functional mobility ) Sit to Stand (QC): 6 (Pt will be Mod I with functional mobility ) Chair/Fjg-ls-Qoykn Xfer(QC): 6 (Pt will be Mod I with functional mobility ) Toilet Transfer (QC): 6 (Pt will be Mod I with functional mobility ) Car Transfer (QC): 6 (Pt will be Mod I with functional mobility ) Does the Patient Walk: Yes Walk 10 feet (QC): 6 (Pt will be Mod I with functional mobility ) Walk 50ft with 2 Turns (QC): 6 (Pt will be Mod I with functional mobility ) Walk 150 ft (QC): 6 (Pt will be Mod I with functional mobility ) Walking 10ft on Uneven Surface: 6 (Pt will be Mod I with functional mobility ) 1 Step (curb) (QC): 6 (Pt will be Mod I with functional mobility ) 4 Steps (QC): 6 (Pt will be Mod I with functional mobility ) 12 Steps (QC): 9 (Pt did not do at PLOF) Picking up an Object (QC): 6 (Pt will be Mod I with functional mobility ) Does the Pt use WC or Scooter?: No Wheel 50 feet with 2 turns (QC: 9 Type: N/A Wheel 150 feet: 9 Type: N/A PT Plan Problem List Problem List: Activity Tolerance, Gait Treatment/Plan Treatment Plan: Continue Plan of Care Treatment Plan: Bed Mobility, Education, Functional Activity Khadar, Functional Strength, Group Therapy, Gait, Safety, Therapeutic Exercise, Transfers Treatment Duration: Sep 24, 2023 Frequency: At least 5 of 7 days/Wk (IRF) Estimated Hrs Per Day: 1.5 hours per day Patient and/or Family Agrees t: Yes Safety Risks/Education Patient Education: Gait Training, Correct Positioning Teaching Recipient: Patient Teaching Methods: Discussion Response to Teaching: Verbalize Understanding Time Time In: 0800 Time Out: 0900 DATE: Sep 16, 2023 Total Billed Treatment Time: 60 Total Billed Treatment 1, FA (15m) & GT x3 (45m) JESUS DONNELLY EMBRYOLOGY TEACHER Sep 16, 2023 09:12
[2023-09-16] MEDS: TRIAMCINOLONE 0.1% CR (KENALOG) 15 GM TUBE TP SCH ×2 (09:14→20:12)
--- NOTE | 2023-09-16 10:28 | PM&R Progress Note ---
Subjective HPI/CC On Admission Date Seen by Provider: Sep 16, 2023 Time Seen by Provider: 10:30 Subjective/Events-last exam 09/16/2023: Patient doing well Gaining confidence Pain is controlled No falls 09/15/2023: Much improved overall Participation is good Therapy will focus on regaining function No falls 09/14/2023: Much improved status Less pain Doing well otherwise Trying to increase her confidence 09/13/2023: Doing well No pain reported until she moves hip No nausea Eating well 09/12/2023: Patient making slow recovery but improving Reviewed meds Pain is controlled No falls 09/11/2023: Patient doing well Denies any new problems Slowly ambulating Pain is controlled Bowels are moving 09/10/2023: Patient doing well Moving slowly Pain is controlled Reviewed labs and meds No other concerns Review of Systems General: Fatigue, Malaise Objective Exam Vital Signs Vital Signs Date Time Temp Pulse Resp B/P (MAP) Pulse Ox O2 Delivery O2 Flow Rate FiO2 09/16/23 09:22 Room Air 09/16/23 08:00 36.6 89 20 144/67 (92) 96 Capillary Refill : General Appearance: No Apparent Distress, WD/WN, Chronically ill, Thin, Other (frail, aspien collar in place) HEENT: PERRL/EOMI, Normal ENT Inspection, Pharynx Normal Neck: Full Range of Motion, Normal Inspection, Non Tender, Supple, Carotid Bruit Respiratory: Chest Non Tender, Lungs Clear, Normal Breath Sounds, No Accessory Muscle Use, No Respiratory Distress Cardiovascular: No Gallop, No JVD, No Murmur, Normal Peripheral Pulses, Irregularly Irregular Gastrointestinal: Normal Bowel Sounds, No Organomegaly, No Pulsatile Mass, Non Tender, Soft Back: Normal Inspection, No CVA Tenderness, No Vertebral Tenderness Extremity: Normal Capillary Refill, Normal Inspection, Normal Range of Motion (except left leg due to pain), Non Tender, No Calf Tenderness, Pedal Edema Neurologic/Psychiatric: Alert, Oriented x3, Normal Mood/Affect, christmas bell ringer II-XII Norm as Tested, Abnormal Gait, Motor Weakness (left leg) Skin: Normal Color, Warm/Dry, Other (venous stasis of legs) Lymphatic: No Adenopathy Results/Procedures Lab Patient resulted labs reviewed. FIM Transfers Therapy Code Descriptions/Definitions Functional [place] Measure: 0=Not Assessed/NA 4=Minimal Assistance 1=Total Assistance 5=Supervision or Setup 2=Maximal Assistance 6=Modified [place] 3=Moderate Assistance 7=Complete IndependenceSCALE: Activities may be completed with or without assistive devices. 6-Leaorhcura-ailnhfz completes the activity by him/herself with no assistance from a helper. 5-Set-up or Clean-up Assistance-helper sets up or cleans up; patient completes activity. [place] assists only prior to or following the activity. 4-Supervision or Touching Assistance-helper provides verbal cues and/or touching/steadying and/or contact guard assistance as patient completes activity. Assistance may be provided throughout the activity or intermittently. 3-Partial/Moderate Assistance-helper does LESS THAN HALF the effort. [place] lifts, holds or supports trunk or limbs, but provides less than half the effort. 2-Substantial/Maximal Assistance-helper does MORE THAN HALF the effort. [place] lifts or holds trunk or limbs and provides more than half the effort. 3-Xfcmvabiw-twisnj does ALL the effort. Patient does none of the effort to complete the activity. Or, the assistance of 2 or more helpers is required for the patient to complete the activity. If activity was not attempted, code reason: 7-Patient Refused. 9-Not Applicable-not attempted and the patient did not perform the activity before the current illness, exacerbation or injury. 10-Not Attempted due to Environmental Limitations-(lack of equipment, weather restraints, etc.). 88-Not Attempted due to Medical Conditions or Safety Concerns. Roll Left to Right (QC): 3 (Min A ) Sit to Lying (QC): 3 (Min A ) Sit to Stand (QC): 5 Chair/Kyg-pz-Kzvbm Xfer(QC): 4 Car Transfer (QC): 3 (Min A ) Gait Training Does the Patient Walk?: Yes Distance: 220' Walk 10 feet (QC): 5 Walk 50 ft with 2 Turns(QC): 5 Walk 150 ft (QC): 5 Walking 10ft/uneven surface-QC: 4 (CGA ) Gait Persons Needed: 1 Gait Assistive Device: FWW Wheelchair Training Does the Pt Use a Wheelchair?: No Wheel 50 ft with 2 turns (QC): 3 Wheel 150 ft (QC): 9 Type of Wheelchair: N/A Stair Training #of Steps: 1 1 Step (curb) (QC): 3 (Min A ) 4 Steps (QC): 88 (Pain, weakness) 12 Steps (QC): 88 (Pain, weakness) Balance Picking up an Object (QC): 4 (CGA with food editor ) ADL-Treatment Eating (QC): 6 (IND with breakfast per pt report) Oral Hygiene (QC): 5 (standing at sink) Shower/Bathe Self (QC): 4 (Supervision, min VCs) Upper Body Dressing (QC): 3 (set up with button up shirt, assist with c collar) Lower Body Dressing (QC): 4 (SBA, min Vcs. Pt used AE as needed to thread LE clothes) On/Off Footwear (QC): 2 (Pt requiring max A to don and doff socks this session) Toileting Hygiene (QC): 6 (Pt completed toilet hygiene independently in sitting with no cues for safety) Toilet Transfer (QC): 4 (Pt completed toilet transfer with use of FWW and supervision for balance and safety. ) Assessment/Plan Assessment and Plan Assess & Plan/Chief Complaint Assessment: C2 lateral mass fracture non-surgical type placed in [place] collar Left acetabular fracture non-surgical type Inferior ramus fracture AF OAC Advanced age CKD HTN HLP Fall risk CHFpEF Plan: PT OT Pain control BM regimen Monitor closely 09/10/2023: Supportive FDC meds Pain control 09/11/2023: Supportive FDC meds 09/12/2023: Supportive care Pain is controlled 09/13/2023: Continue aggressive rehab 09/14/2023: Continue aggressive therapy 09/15/2023: Continue aggressive therapy 09/16/2023: Increase confidence More therapy (1) Closed C2 fracture JULIÁN ALFREDO DO Sep 16, 2023 10:28
--- NOTE | 2023-09-16 12:49 | Progress Note ---
ANA CRISTINA HARDIN 09/16/23 1249: Progress Note 87 year old female, here for recovery from a C2 fracture, left acetabular fracture, and inferior ramus fracture. She has a history of Afib, CKD, HTN, and CHFpEF. Her Hbg and Hct are slightly decreased from 9.4 and 30 to 8.3 and 27. Her vitals have remained stable through her stay. Her ADLs have remained at 3-6 on the therapeutic index and pt reports improvement. MATILDE ALFREDO DO 09/16/232030: Supervisory-Addendum Brief Verification & Attestation Participated in pt care: history, MDM, physical Personally performed: exam, history, MDM, supervision of care Care discussed with: Medical Student Procedures: n/a Results interpretation: Verified all documentation Verification and Attestation of Medical Student E/M Service A medical student performed and documented this service in my presence. I reviewed and verified all information documented by the medical student and made modifications to such information, when appropriate. I personally performed the physical exam and medical decision making. Matilde Alfredo, Sep 16, 2023,20:31 ANA CRISTINA HARDIN Sep 16, 2023 12:49 MATILDE ALFREDO DO Sep 16, 2023 20:31
--- NOTE | 2023-09-16 12:53 | Occupational Ther Daily Note ---
OT Current Status-Daily Note Subjective Pt agreeable to OT Tx. ADL-Treatment Therapy Code Descriptions/Definitions Functional [place] Measure: 0=Not Assessed/NA 4=Minimal Assistance 1=Total Assistance 5=Supervision or Setup 2=Maximal Assistance 6=Modified [place] 3=Moderate Assistance 7=Complete IndependenceSCALE: Activities may be completed with or without assistive devices. 6-Vozmbhjhea-vaoajtc completes the activity by him/herself with no assistance from a helper. 5-Set-up or Clean-up Assistance-helper sets up or cleans up; patient completes activity. [place] assists only prior to or following the activity. 4-Supervision or Touching Assistance-helper provides verbal cues and/or touching/steadying and/or contact guard assistance as patient completes activity. Assistance may be provided throughout the activity or intermittently. 3-Partial/Moderate Assistance-helper does LESS THAN HALF the effort. [place] lifts, holds or supports trunk or limbs, but provides less than half the effort. 2-Substantial/Maximal Assistance-helper does MORE THAN HALF the effort. [place] lifts or holds trunk or limbs and provides more than half the effort. 8-Zarbamkti-ljgtsi does ALL the effort. Patient does none of the effort to complete the activity. Or, the assistance of 2 or more helpers is required for the patient to complete the activity. If activity was not attempted, code reason: 7-Patient Refused. 9-Not Applicable-not attempted and the patient did not perform the activity before the current illness, exacerbation or injury. 10-Not Attempted due to Environmental Limitations-(lack of equipment, weather restraints, etc.). 88-Not Attempted due to Medical Conditions or Safety Concerns. Eating (QC): 6 Oral Hygiene (QC): 6 (Standing at sink.) Upper Body Dressing (QC): 5 Toileting Hygiene (QC): 6 Toilet Transfer (QC): 6 Other Treatment Pt agreeable to OT Tx. Pt stood from recliner, IND, then used FWW to transfer into bathroom and onto toilet, IND. Pt completed toileting, IND, then stood at s ink to complete oral care and grooming tasks, IND. Pt used FWW to perform functional mobility to therapy gym, SBA. OT tx focused on increasing BUE strength and activity tolerance. Pt stood at tall table to complete UE reaching task. Pt stood from ~10 mins, requesting seated rest break due to neck pain. Pt then completed seated UE reaching task. Pt used FWW to return to her room, SBA, transferring to recliner. Lunch tray arrived. Post tx, pt in recliner, call light in reach and all needs met. Education OT Patient Education: Correct positioning, Energy conservation, Modified ADL techniques, Progress toward Goal/Update tx plan, Purpose of tx/functional activities, Rehab process Teaching Recipient: Patient Teaching Methods: Discussion Response to Teaching: Verbalize Understanding OT Short Term Goals Short Term Goals Time Frame: Sep 17, 2023 Shower/bathe self: 4 Putting on/taking off footwear: 4 OT Student Recruiter Goals Mcc Goals Time Frame: Sep 26, 2023 Acute change in mental status: 0 Inattention: 0 Disorganized thinkin Altered level of consciousness: 0 Eating (QC): 6 Oral Hygiene (QC): 6 Toileting Hygiene (QC): 6 Shower/Bathe Self (QC): 6 Upper Body Dressing (QC): 6 Lower Body Dressing (QC): 6 On/Off Footwear (QC): 6 (slip on shoes only) Additional Goals: 1-Demonstrate ADL Tasks, 2-Verbalize Understanding, 3- ImproveStrength/Khadar 1=Demonstrate adherence to instructed precautions during ADL tasks. 2=Patient will verbalize/demonstrate understanding of assistive devices/modifications for ADL. 3=Patient will improve strength/tolerance for activity to enable patient to perform ADL's. OT Education/Plan Problem List/Assessment Assessment: Decreased Activ Tolerance, Decreased UE Strength, Impaired Funct Balance, Impaired I ADL's, Impaired Self-Care Skills Discharge Recommendations Plan/Recommendations: Continue POC Treatment Plan/Plan of Care Patient would benefit from OT for education, treatment and training to promote independence in ADL's, mobility, safety and/or upper extremity function for ADL's. Plan of Care: ADL Retraining, Functional Mobility, Group Exercise/Act as Ind, UE Funct Exercise/Act Treatment Duration: Sep 26, 2023 Frequency: At least 5 of 7 days/Wk (IRF) Estimated Hrs Per Day: 1.5 hours per day Agreement: Yes Rehab Potential: Good Time Start Time: 10:30 Stop Time: 12:00 DATE: Sep 16, 2023 Total Time Billed (hr/min): 90 Billed Treatment Time 1, ADL 2 (30'), FA 4 (60') COLIN FRIEND OT Sep 16, 2023 12:53
--- NOTE | 2023-09-16 14:10 | Physical Therapy Daily Note ---
PT Daily Note-Current Subjective Pt presents in recliner with B feet on table feet. Pt reports pain 3/10 in L hip, pain denied in R hip. Pain Section J - Health Conditions 1. Rarely or not at all 2. Occasionally 3. Frequently 4. Almost constantly 8. Unable to answer Pain Effect on Sleep: 2 Pain Interference with Therapy: 2 (Pt reports current pain level is less than AM tx.) Pain Interference w/Day-to-Day: 3 Transfers SCALE: Activities may be completed with or without assistive devices. 7-Rubwjcjcdt-ksvodhk completes the activity by him/herself with no assistance from a helper. 5-Set-up or Clean-up Assistance-helper sets up or cleans up; patient completes activity. [place] assists only prior to or following the activity. 4-Supervision or Touching Assistance-helper provides verbal cues and/or touching/steadying and/or contact guard assistance as patient completes activity. Assistance may be provided throughout the activity or intermittently. 3-Partial/Moderate Assistance-helper does LESS THAN HALF the effort. [place] lifts, holds or supports trunk or limbs, but provides less than half the effort. 2-Substantial/Maximal Assistance-helper does MORE THAN HALF the effort. [place] lifts or holds trunk or limbs and provides more than half the effort. 9-Rzrdyugtw-whzdoc does ALL the effort. Patient does none of the effort to complete the activity. Or, the assistance of 2 or more helpers is required for the patient to complete the activity. If activity was not attempted, code reason: 7-Patient Refused. 9-Not Applicable-not attempted and the patient did not perform the activity before the current illness, exacerbation or injury. 10-Not Attempted due to Environmental Limitations-(lack of equipment, weather restraints, etc.). 88-Not Attempted due to Medical Conditions or Safety Concerns. Sit to Stand (QC): 4 (Pt xfer /c FWW but requires SBA for safety and vc/tc's.) Toilet Transfer (QC): 4 (Pt xfer /c FWW but requires SBA for safety and vc/tc 's.) Car Transfer (QC): 3 (Pt xfer using FWW and Leg Head Golf Coach, with Anselmo for lifting B LE in/out of car.) Weight Bearing Right Lower Extremity: Right Weight Bearing/Tolerated Left Lower Extremity: Left Weight Bearing/Tolerated Cervical precautions: no lifting >2lbs, no pushing/pulling, or strenuous exercise for 4 weeks. No [address]. WBAT on LEs. Wear neck collar at all times (change pads after getting out of the shower; keep head still while pads are being changed) Gait Training Does the Patient Walk?: Yes Walk 10 feet (QC): 4 (Pt amb /c B UE support on FWW, SBA for vc/tc's for safety and posture.) Walk 50 ft with 2 Turns(QC): 4 (Pt amb /c B UE support on FWW, SBA for vc/tc's for safety and posture.) Gait Assistive Device: FWW Pt amb 50' + 100' /c B UE support on FWW, SBA for vc/tc's for safety and posture. Wheelchair Training Does the Pt Use a Wheelchair?: No Treatments TRANSFER TRAINING: Car xfer training with leg lacquer machine feeder for B LE assist in/out of car. GAIT: Amb 50' + 100' /c B UE support on FWW, SBA for vc/tc's for safety and posturing. Assessment Current Status: Good Progress Pt tolerated tx today with no LOB or increase in pain. Pt needs met at end of tx. PT Half-Way Goals Quotation Clerk Goals PT Half-Way Goals Time Frame: Sep 24, 2023 Roll Left & Right (QC): 6 (Pt will be Mod I with functional mobility ) Sit to Lying (QC): 6 (Pt will be Mod I with functional mobility ) Lying-Sitting on Side/Bed(QC): 6 (Pt will be Mod I with functional mobility ) Sit to Stand (QC): 6 (Pt will be Mod I with functional mobility ) Chair/Vui-eg-Htdcm Xfer(QC): 6 (Pt will be Mod I with functional mobility ) Toilet Transfer (QC): 6 (Pt will be Mod I with functional mobility ) Car Transfer (QC): 6 (Pt will be Mod I with functional mobility ) Does the Patient Walk: Yes Walk 10 feet (QC): 6 (Pt will be Mod I with functional mobility ) Walk 50ft with 2 Turns (QC): 6 (Pt will be Mod I with functional mobility ) Walk 150 ft (QC): 6 (Pt will be Mod I with functional mobility ) Walking 10ft on Uneven Surface: 6 (Pt will be Mod I with functional mobility ) 1 Step (curb) (QC): 6 (Pt will be Mod I with functional mobility ) 4 Steps (QC): 6 (Pt will be Mod I with functional mobility ) 12 Steps (QC): 9 (Pt did not do at PLOF) Picking up an Object (QC): 6 (Pt will be Mod I with functional mobility ) Does the Pt use WC or Scooter?: No Wheel 50 feet with 2 turns (QC: 9 Type: N/A Wheel 150 feet: 9 Type: N/A PT Plan Treatment/Plan Treatment Plan: Continue Plan of Care Treatment Plan: Bed Mobility, Education, Functional Activity Khadar, Functional Strength, Group Therapy, Gait, Safety, Therapeutic Exercise, Transfers Treatment Duration: Sep 24, 2023 Frequency: At least 5 of 7 days/Wk (IRF) Estimated Hrs Per Day: 1.5 hours per day Patient and/or Family Agrees t: Yes Safety Risks/Education Patient Education: Gait Training, Transfer Techniques Time Time In: 1315 Time Out: 1350 DATE: Sep 16, 2023 Total Billed Treatment Time: 35 Total Billed Treatment 1, GT (20m), FA (15m) FAWN CONNOR RECONSTRUCTIVE DENTIST Sep 16, 2023 14:10
[2023-09-16 20:00] VITALS: BP 156/74
--- NOTE | 2023-09-17 05:15 | PM&R Progress Note ---
Subjective HPI/CC On Admission Date Seen by Provider: Sep 17, 2023 Time Seen by Provider: 12:30 Subjective/Events-last exam 09/17/2023: Monitoring closely Pain controlled DC planned for DC to [place] No falls 09/16/2023: Patient doing well Gaining confidence Pain is controlled No falls 09/15/2023: Much improved overall Participation is good Therapy will focus on regaining function No falls 09/14/2023: Much improved status Less pain Doing well otherwise Trying to increase her confidence 09/13/2023: Doing well No pain reported until she moves hip No nausea Eating well 09/12/2023: Patient making slow recovery but improving Reviewed meds Pain is controlled No falls 09/11/2023: Patient doing well Denies any new problems Slowly ambulating Pain is controlled Bowels are moving 09/10/2023: Patient doing well Moving slowly Pain is controlled Reviewed labs and meds No other concerns Review of Systems General: Fatigue, Malaise Objective Exam Vital Signs Vital Signs Date Time Temp Pulse Resp B/P (MAP) Pulse Ox O2 Delivery O2 Flow Rate FiO2 09/17/23 19:48 36.6 109 18 149/65 (93) 96 Room Air Capillary Refill : General Appearance: No Apparent Distress, WD/WN, Chronically ill, Thin, Other (frail, aspien collar in place) HEENT: PERRL/EOMI, Normal ENT Inspection, Pharynx Normal Neck: Full Range of Motion, Normal Inspection, Non Tender, Supple, Carotid Bruit Respiratory: Chest Non Tender, Lungs Clear, Normal Breath Sounds, No Accessory Muscle Use, No Respiratory Distress Cardiovascular: No Gallop, No JVD, No Murmur, Normal Peripheral Pulses, Irregularly Irregular Gastrointestinal: Normal Bowel Sounds, No Organomegaly, No Pulsatile Mass, Non Tender, Soft Back: Normal Inspection, No CVA Tenderness, No Vertebral Tenderness Extremity: Normal Capillary Refill, Normal Inspection, Normal Range of Motion (except left leg due to pain), Non Tender, No Calf Tenderness, Pedal Edema Neurologic/Psychiatric: Alert, Oriented x3, Normal Mood/Affect, news gathering technician II-XII Norm as Tested, Abnormal Gait, Motor Weakness (left leg) Skin: Normal Color, Warm/Dry, Other (venous stasis of legs) Lymphatic: No Adenopathy Results/Procedures Lab Patient resulted labs reviewed. FIM Transfers Therapy Code Descriptions/Definitions Functional [place] Measure: 0=Not Assessed/NA 4=Minimal Assistance 1=Total Assistance 5=Supervision or Setup 2=Maximal Assistance 6=Modified [place] 3=Moderate Assistance 7=Complete IndependenceSCALE: Activities may be completed with or without assistive devices. 6-Aqobdxohar-ffkenwd completes the activity by him/herself with no assistance from a helper. 5-Set-up or Clean-up Assistance-helper sets up or cleans up; patient completes activity. [place] assists only prior to or following the activity. 4-Supervision or Touching Assistance-helper provides verbal cues and/or touching/steadying and/or contact guard assistance as patient completes activity. Assistance may be provided throughout the activity or intermittently. 3-Partial/Moderate Assistance-helper does LESS THAN HALF the effort. [place] lifts, holds or supports trunk or limbs, but provides less than half the effort. 2-Substantial/Maximal Assistance-helper does MORE THAN HALF the effort. [place] lifts or holds trunk or limbs and provides more than half the effort. 4-Ivoxplyjg-bazsfy does ALL the effort. Patient does none of the effort to complete the activity. Or, the assistance of 2 or more helpers is required for the patient to complete the activity. If activity was not attempted, code reason: 7-Patient Refused. 9-Not Applicable-not attempted and the patient did not perform the activity before the current illness, exacerbation or injury. 10-Not Attempted due to Environmental Limitations-(lack of equipment, weather restraints, etc.). 88-Not Attempted due to Medical Conditions or Safety Concerns. Roll Left to Right (QC): 3 (Min A ) Sit to Lying (QC): 3 (Min A ) Sit to Stand (QC): 4 (Pt xfer /c FWW but requires SBA for safety and vc/tc's.) Chair/Wfs-ep-Pkcmp Xfer(QC): 4 Car Transfer (QC): 3 (Pt xfer using FWW and Leg Cover Stitch Machine Operator, with Anselmo for lifting B LE in/out of car.) Gait Training Does the Patient Walk?: Yes Distance: 220' Walk 10 feet (QC): 4 (Pt amb /c B UE support on FWW, SBA for vc/tc's for safety and posture.) Walk 50 ft with 2 Turns(QC): 4 (Pt amb /c B UE support on FWW, SBA for vc/tc's for safety and posture.) Walk 150 ft (QC): 5 Walking 10ft/uneven surface-QC: 4 (CGA ) Gait Persons Needed: 1 Gait Assistive Device: FWW Wheelchair Training Does the Pt Use a Wheelchair?: No Wheel 50 ft with 2 turns (QC): 3 Wheel 150 ft (QC): 9 Type of Wheelchair: N/A Stair Training #of Steps: 1 1 Step (curb) (QC): 3 (Min A ) 4 Steps (QC): 88 (Pain, weakness) 12 Steps (QC): 88 (Pain, weakness) Balance Picking up an Object (QC): 4 (CGA with blending plant operator ) ADL-Treatment Eating (QC): 6 Oral Hygiene (QC): 6 (Standing at sink.) Shower/Bathe Self (QC): 4 (Supervision, min VCs) Upper Body Dressing (QC): 5 Lower Body Dressing (QC): 4 (SBA, min Vcs. Pt used AE as needed to thread LE clothes) On/Off Footwear (QC): 2 (Pt requiring max A to don and doff socks this session) Toileting Hygiene (QC): 6 Toilet Transfer (QC): 6 Assessment/Plan Assessment and Plan Assess & Plan/Chief Complaint Assessment: C2 lateral mass fracture non-surgical type placed in [place] collar Left acetabular fracture non-surgical type Inferior ramus fracture AF OAC Advanced age CKD HTN HLP Fall risk CHFpEF Plan: PT OT Pain control BM regimen Monitor closely 09/10/2023: Supportive correction meds Pain control 09/11/2023: Supportive correction meds 09/12/2023: Supportive care Pain is controlled 09/13/2023: Continue aggressive rehab 09/14/2023: Continue aggressive therapy 09/15/2023: Continue aggressive therapy 09/16/2023: Increase confidence More therapy 09/17/2023: Monitor closely Pain control (1) Closed C2 fracture JULIÁN ALFREDO DO Sep 17, 2023 05:15
[2023-09-17] MEDS: CYANOCOBALAMIN 1,000 MCG TABLET PO SCH (05:24)
[2023-09-17] MEDS: ACETAMINOPHEN 325 MG TABLET PO SCH ×4 (05:24→23:43)
[2023-09-17] MEDS: CALCIUM CARBONATE 600 MG +VITAMIN D TABLET PO SCH (05:24)
[2023-09-17] MEDS: diphenhydrAMINE 25 MG TABLET PO PRN ×2 (05:24→20:31)
[2023-09-17] MEDS: POTASSIUM CHLORIDE 10 MEQ TABLET PO SCH (05:25)
[2023-09-17] MEDS: inSUlin ASPART 1 UNIT/0.01 ML (PER UNIT) SC SCH ×2 (05:33→16:58)
[2023-09-17] MEDS: FERROUS SULFATE 325 MG (IRON) TABLET PO SCH (07:58)
[2023-09-17] MEDS: NALTREXONE 50 MG TABLET PO SCH (07:59)
[2023-09-17 08:00] VITALS: BP 136/65
[2023-09-17] MEDS: APIXABAN 5 MG TABLET PO SCH ×2 (08:00→20:31)
[2023-09-17] MEDS: EMPAGLIFLOZIN 10 MG TABLET PO SCH (08:00)
[2023-09-17] MEDS: VALSARTAN 80 MG (DIOVAN) TAB PO SCH (08:01)
[2023-09-17] MEDS: dilTIAZem ER 180 MG CAPSULE PO SCH (08:01)
[2023-09-17] MEDS: LORATADINE 10 MG TABLET PO SCH (08:01)
[2023-09-17] MEDS: ALLOPURINOL 100 MG TABLET PO SCH (08:01)
[2023-09-17] MEDS: FAMOTIDINE 20 MG TABLET PO SCH (08:01)
[2023-09-17] MEDS: DOCUSATE SODIUM 100 MG CAPSULE PO SCH ×2 (08:08→20:31)
[2023-09-17] MEDS: SENNA W/DOCUSATE TABLET PO SCH ×2 (08:08→20:31)
[2023-09-17] MEDS: TRIAMCINOLONE 0.1% CR (KENALOG) 15 GM TUBE TP SCH ×2 (08:08→20:32)
--- NOTE | 2023-09-17 08:55 | Physical Therapy Daily Note ---
PT Daily Note-Current Subjective Pt presents sitting in recliner with B feet on table feet. Pt reports pain in L hip /10 and denies pain in R hip. Pt agreed to tx. Pain Section J - Health Conditions 1. Rarely or not at all 2. Occasionally 3. Frequently 4. Almost constantly 8. Unable to answer Pain Effect on Sleep: 2 Pain Interference with Therapy: 3 Pain Interference w/Day-to-Day: 3 Transfers SCALE: Activities may be completed with or without assistive devices. 8-Qguhvucvnq-fkikntp completes the activity by him/herself with no assistance from a helper. 5-Set-up or Clean-up Assistance-helper sets up or cleans up; patient completes activity. [place] assists only prior to or following the activity. 4-Supervision or Touching Assistance-helper provides verbal cues and/or touching/steadying and/or contact guard assistance as patient completes activity. Assistance may be provided throughout the activity or intermittently. 3-Partial/Moderate Assistance-helper does LESS THAN HALF the effort. [place] lifts, holds or supports trunk or limbs, but provides less than half the effort. 2-Substantial/Maximal Assistance-helper does MORE THAN HALF the effort. [place] lifts or holds trunk or limbs and provides more than half the effort. 6-Tgngrpcjv-vvuajt does ALL the effort. Patient does none of the effort to complete the activity. Or, the assistance of 2 or more helpers is required for the patient to complete the activity. If activity was not attempted, code reason: 7-Patient Refused. 9-Not Applicable-not attempted and the patient did not perform the activity before the current illness, exacerbation or injury. 10-Not Attempted due to Environmental Limitations-(lack of equipment, weather restraints, etc.). 88-Not Attempted due to Medical Conditions or Safety Concerns. Roll Left & Right (QC): 88 Sit to Lying (QC): 2 (Pt needs assistance moving B LE secondary to L hip fx.) Lying to Sitting/Side of Bed(Q: 2 (Pt needs assistance moving B LE secondary to L hip fx.) Sit to Stand (QC): 5 Chair/Bum-vl-Ryoip Xfer(QC): 5 Weight Bearing Right Lower Extremity: Right Weight Bearing/Tolerated Left Lower Extremity: Left Weight Bearing/Tolerated Cervical precautions: no lifting >2lbs, no pushing/pulling, or strenuous exercise for 4 weeks. No driving. WBAT on LEs. Wear neck collar at all times (change pads after getting out of the shower; keep head still while pads are being changed) Gait Training Does the Patient Walk?: Yes Walk 10 feet (QC): 5 Walk 50 ft with 2 Turns(QC): 5 Walk 150 ft (QC): 5 Gait Assistive Device: FWW Pt amb 158' with B UE support on FWW, SBA for safety. Wheelchair Training Does the Pt Use a Wheelchair?: No Exercises THER EX: Supine in bed, L LE x 8 (mod/maxA-secondary to pain in L hip), R LE x 10 (Anselmo): Ankle pumps, Quad Set, HS set, Heel slides, Hip abd Treatments Pt performed sit<>stand from recliner to bed /c FWW and SBA for safety. Pt xfer from sit<>lying in bed to complete supine B LE ther ex. Pt xfer from lying<>sitting EOB and sit<>stand to FWW. Pt amb 158' from room to hallway and back to room with FWW and SBA for safety. Pt sherice is fair/slow, endurance is good. Pt xfer sit<>stand from FWW to recliner with SBA for safety. Pt needs met and call light in her recliner. Assessment Current Status: Good Progress Pt sherice during amb has improved but is slow and safe with FWW. Pt conducted tx with no LOB or increase in pain. PT Detention Goals Detention Goals PT Clinical Admissions Manager Goals Time Frame: Sep 24, 2023 Roll Left & Right (QC): 6 (Pt will be Mod I with functional mobility ) Sit to Lying (QC): 6 (Pt will be Mod I with functional mobility ) Lying-Sitting on Side/Bed(QC): 6 (Pt will be Mod I with functional mobility ) Sit to Stand (QC): 6 (Pt will be Mod I with functional mobility ) Chair/Zxd-yc-Uwwvb Xfer(QC): 6 (Pt will be Mod I with functional mobility ) Toilet Transfer (QC): 6 (Pt will be Mod I with functional mobility ) Car Transfer (QC): 6 (Pt will be Mod I with functional mobility ) Does the Patient Walk: Yes Walk 10 feet (QC): 6 (Pt will be Mod I with functional mobility ) Walk 50ft with 2 Turns (QC): 6 (Pt will be Mod I with functional mobility ) Walk 150 ft (QC): 6 (Pt will be Mod I with functional mobility ) Walking 10ft on Uneven Surface: 6 (Pt will be Mod I with functional mobility ) 1 Step (curb) (QC): 6 (Pt will be Mod I with functional mobility ) 4 Steps (QC): 6 (Pt will be Mod I with functional mobility ) 12 Steps (QC): 9 (Pt did not do at PLOF) Picking up an Object (QC): 6 (Pt will be Mod I with functional mobility ) Does the Pt use WC or Scooter?: No Wheel 50 feet with 2 turns (QC: 9 Type: N/A Wheel 150 feet: 9 Type: N/A PT Plan Treatment/Plan Treatment Plan: Continue Plan of Care Treatment Plan: Bed Mobility, Education, Functional Activity Khadar, Functional Strength, Group Therapy, Gait, Safety, Therapeutic Exercise, Transfers Treatment Duration: Sep 24, 2023 Frequency: At least 5 of 7 days/Wk (IRF) Estimated Hrs Per Day: 1.5 hours per day Patient and/or Family Agrees t: Yes Safety Risks/Education Patient Education: Gait Training, Transfer Techniques, Correct Positioning Teaching Recipient: Patient Teaching Methods: Discussion Response to Teaching: Verbalize Understanding, Return Demonstration RETAIL ASSET PROTECTION SPECIALIST educated pt on: proper hand positioning during sit<>stand, standing tall/looking forward during amb, and to take larger steps to assist with better balance and coordination. Time Time In: 814 Time Out: 0845 DATE: Sep 17, 2023 Total Billed Treatment Time: 30 Total Billed Treatment 1, EX (15m), GT (15m) FAWN CONNOR RETAIL ASSET PROTECTION SPECIALIST Sep 17, 2023 08:55
--- NOTE | 2023-09-17 10:30 | Occupational Ther Daily Note ---
OT Current Status-Daily Note Subjective Pt agreeable to OT tx, family education provided to pt's friend Tracey in person, and daughter/son (Sarah/James) via phone call. Mental Status/Objective Patient Orientation: Normal For Age ADL-Treatment Therapy Code Descriptions/Definitions Functional [place] Measure: 0=Not Assessed/NA 4=Minimal Assistance 1=Total Assistance 5=Supervision or Setup 2=Maximal Assistance 6=Modified [place] 3=Moderate Assistance 7=Complete IndependenceSCALE: Activities may be completed with or without assistive devices. 6-Tnidyybhfk-nubdjbv completes the activity by him/herself with no assistance from a helper. 5-Set-up or Clean-up Assistance-helper sets up or cleans up; patient completes activity. [place] assists only prior to or following the activity. 4-Supervision or Touching Assistance-helper provides verbal cues and/or touching/steadying and/or contact guard assistance as patient completes activity. Assistance may be provided throughout the activity or intermittently. 3-Partial/Moderate Assistance-helper does LESS THAN HALF the effort. [place] lifts, holds or supports trunk or limbs, but provides less than half the effort. 2-Substantial/Maximal Assistance-helper does MORE THAN HALF the effort. [place] lifts or holds trunk or limbs and provides more than half the effort. 0-Sjukrirwz-omblym does ALL the effort. Patient does none of the effort to complete the activity. Or, the assistance of 2 or more helpers is required for the patient to complete the activity. If activity was not attempted, code reason: 7-Patient Refused. 9-Not Applicable-not attempted and the patient did not perform the activity before the current illness, exacerbation or injury. 10-Not Attempted due to Environmental Limitations-(lack of equipment, weather restraints, etc.). 88-Not Attempted due to Medical Conditions or Safety Concerns. Oral Hygiene (QC): 6 Toileting Hygiene (QC): 6 Toilet Transfer (QC): 6 Other Treatment [id number] OT tx: Pt stood from recliner, IND, then used FWW to transfer into bathroom onto BSC over toilet, IND. Pt completed toileting, IND, then stood at sink for grooming tasks, IND. Pt returned to recliner, IND. [id number]: OT/PT cotreat due to skill of 2 clinicians required which a power equipment technology instructor could not perform in order to provide family education, decrease fall risk, and focus on higher level balance tasks. OT focused on UE placement, cues for sequencing and safety and ADLs, PT focused on LE placement, gross overall movement, transfers and mobility. Pt's friend Tracey present for family education, phone call placed with pt's children, James and Sarah. Education provided on pt's current LOF with ADLS and mobility at this time. Pt's family/friend asked appropriate questions, and verbalized understanding of education. Traci ABDALLA, notified of family's questions regarding insurance, therapy after discharge, and transportation. Pt demonstrated ability to complete sit to/from stand, and perform mobility to [facility] common area, and demonstrated car transfer. Tracey educated on how to change pads of neck brace. [id number]: OT tx: Pt used FWW to return to her room, transferring to recliner. Pt positioned to comfort. Tracey and pt state no further questions/concerns at this time. Post tx, pt in recliner, call light in reach and all needs met. Education OT Patient Education: Correct positioning, Energy conservation, Modified ADL techniques, Progress toward Goal/Update tx plan, Purpose of tx/functional activities, Rehab process Teaching Recipient: Patient, Family, Friend Teaching Methods: Demonstration, Discussion Response to Teaching: Verbalize Understanding BIMS CAM BIMS Expression of Ideas and Wants: Without Difficulty Understanding Verbal Content: Understands Brief Interview/Mental Status: Yes IRF BRITTNY BIMS: IRF BRITTNY BIMS Response (Comments) Value Repitition of Three Words Three 3 Recalls Socks Yes, No Cue Required 2 Recalls Blue Yes, No Cue Required 2 Recalls Bed Yes, No Cue Required 2 Year Correct 3 Month Missed by 6 Days/1 Month 1 Day Correct 1 Total 14 Patient Normally Able to Recal: Current Session, Location of own room, Staff Names and faces, [facility] Should Staff Asses. Mental St.: No Memory/Recall Ability: Current Season, Location of Own Room, Staff Names and Faces, That He[facility]She in [facility] Mental Status Change/Baseline: 0 Inattention: 0 Disorganized thinkin Altered level of consciousness: 0 OT Short Term Goals Short Term Goals Time Frame: Sep 17, 2023 Shower/bathe self: 4 Putting on/taking off footwear: 4 OT Penitentiary Goals Penitentiary Goals Time Frame: Sep 26, 2023 Acute change in mental status: 0 Inattention: 0 Disorganized thinkin Altered level of consciousness: 0 Eating (QC): 6 Oral Hygiene (QC): 6 Toileting Hygiene (QC): 6 Shower/Bathe Self (QC): 6 Upper Body Dressing (QC): 6 Lower Body Dressing (QC): 6 On/Off Footwear (QC): 6 (slip on shoes only) Additional Goals: 1-Demonstrate ADL Tasks, 2-Verbalize Understanding, 3- ImproveStrength/Khadar 1=Demonstrate adherence to instructed precautions during ADL tasks. 2=Patient will verbalize/demonstrate understanding of assistive devices/modifications for ADL. 3=Patient will improve strength/tolerance for activity to enable patient to perform ADL's. OT Education/Plan Problem List/Assessment Assessment: Decreased Activ Tolerance, Decreased UE Strength, Impaired I ADL's Discharge Recommendations Plan/Recommendations: Continue POC Treatment Plan/Plan of Care Patient would benefit from OT for education, treatment and training to promote independence in ADL's, mobility, safety and/or upper extremity function for ADL's. Plan of Care: ADL Retraining, Functional Mobility, Group Exercise/Act as Ind, UE Funct Exercise/Act Treatment Duration: Sep 26, 2023 Frequency: At least 5 of 7 days/Wk (IRF) Estimated Hrs Per Day: 1.5 hours per day Agreement: Yes Rehab Potential: Good Time Start Time: 08:45 Stop Time: 10:15 DATE: Sep 17, 2023 Total Time Billed (hr/min): 90 Billed Treatment Time [id number] & [id number] OT Tx; [id number] Cotreat with PT 1, ADL 4 (60'), FA 2 (30') COLIN FRIEND OT Sep 17, 2023 10:29
--- NOTE | 2023-09-17 11:34 | Physical Therapy Daily Note ---
PT Daily Note-Current Subjective Pt sitting in recliner w/friend Tracey present & working w/Ot upon arrival. Pt agrees to PT/OT co-treat for Family Training, family education provided to pt's friend Tracey in person, and daughter/son (Sarah/James) via phone call. Pain Numeric Pain Scale: 4 Location: Left, Lower Location Body Site: Hip Pain Description: Ache, Dull Section J - Health Conditions 1. Rarely or not at all 2. Occasionally 3. Frequently 4. Almost constantly 8. Unable to answer Pain Effect on Sleep: 2 Pain Interference with Therapy: 3 Pain Interference w/Day-to-Day: 3 Mental Status Patient Orientation: Person, Place, Time, Situation Attachments: Other-See Comments (Cervical Collar) Transfers SCALE: Activities may be completed with or without assistive devices. 0-Ekccujviwu-higsanl completes the activity by him/herself with no assistance from a helper. 5-Set-up or Clean-up Assistance-helper sets up or cleans up; patient completes activity. [place] assists only prior to or following the activity. 4-Supervision or Touching Assistance-helper provides verbal cues and/or t ouching/steadying and/or contact guard assistance as patient completes activity. Assistance may be provided throughout the activity or intermittently. 3-Partial/Moderate Assistance-helper does LESS THAN HALF the effort. [place] lifts, holds or supports trunk or limbs, but provides less than half the effort. 2-Substantial/Maximal Assistance-helper does MORE THAN HALF the effort. [place] lifts or holds trunk or limbs and provides more than half the effort. 9-Jujsgexrd-pjxiij does ALL the effort. Patient does none of the effort to complete the activity. Or, the assistance of 2 or more helpers is required for the patient to complete the activity. If activity was not attempted, code reason: 7-Patient Refused. 9-Not Applicable-not attempted and the patient did not perform the activity before the current illness, exacerbation or injury. 10-Not Attempted due to Environmental Limitations-(lack of equipment, weather restraints, etc.). 88-Not Attempted due to Medical Conditions or Safety Concerns. Sit to Stand (QC): 6 Toilet Transfer (QC): 6 Weight Bearing Right Lower Extremity: Right Weight Bearing/Tolerated Left Lower Extremity: Left Weight Bearing/Tolerated Cervical precautions: no lifting >2lbs, no pushing/pulling, or strenuous exercise for 4 weeks. No driving. WBAT on LEs. Wear neck collar at all times (change pads after getting out of the shower; keep head still while pads are being changed) Gait Training Does the Patient Walk?: Yes Distance: 45' x2 Walk 10 feet (QC): 6 Walk 50 ft with 2 Turns(QC): 5 Gait Assistive Device: FWW Treatments [id number]: OT/PT co-treat due to skill of 2 clinicians required which a rehabilitation attendant could not perform in order to provide family education, decrease fall risk, and focus on higher level balance tasks. OT focused on UE placement, cues for sequencing and safety and ADLs, PT focused on LE placement, gross overall movement, transfers and mobility. Pt's friend Tracey present for family education, phone call placed with pt's children, James and Sarah. Education provided on pt's current LOF with ADLS and mobility at this time. Pt's family/friend asked appropriate questions, and verbalized understanding of education. Traci ABDALLA, notified of family's questions regarding insurance, therapy after discharge, and transportation. Pt demonstrated ability to complete sit to/from stand, and perform mobility to [facility] common area, and demonstrated car transfer. Tracey educated on how to change pads of neck brace. Pt amb back to room to rest in recliner. PT departs, OT continues tx. Assessment Current Status: Good Progress Pt still reports pain w/Weight Bearing & amb. but this doesn't increase w/upr ight tasks. Pt's sherice/speed is improving slight but still slower than pt wants to be. PT Launching Pad Mechanic Goals Care Home Goals PT Launching Pad Mechanic Goals Time Frame: Sep 24, 2023 Roll Left & Right (QC): 6 (Pt will be Mod I with functional mobility ) Sit to Lying (QC): 6 (Pt will be Mod I with functional mobility ) Lying-Sitting on Side/Bed(QC): 6 (Pt will be Mod I with functional mobility ) Sit to Stand (QC): 6 (Pt will be Mod I with functional mobility ) Chair/Rev-xv-Fadqx Xfer(QC): 6 (Pt will be Mod I with functional mobility ) Toilet Transfer (QC): 6 (Pt will be Mod I with functional mobility ) Car Transfer (QC): 6 (Pt will be Mod I with functional mobility ) Does the Patient Walk: Yes Walk 10 feet (QC): 6 (Pt will be Mod I with functional mobility ) Walk 50ft with 2 Turns (QC): 6 (Pt will be Mod I with functional mobility ) Walk 150 ft (QC): 6 (Pt will be Mod I with functional mobility ) Walking 10ft on Uneven Surface: 6 (Pt will be Mod I with functional mobility ) 1 Step (curb) (QC): 6 (Pt will be Mod I with functional mobility ) 4 Steps (QC): 6 (Pt will be Mod I with functional mobility ) 12 Steps (QC): 9 (Pt did not do at PLOF) Picking up an Object (QC): 6 (Pt will be Mod I with functional mobility ) Does the Pt use WC or Scooter?: No Wheel 50 feet with 2 turns (QC: 9 Type: N/A Wheel 150 feet: 9 Type: N/A PT Plan Problem List Problem List: Gait Treatment/Plan Treatment Plan: Continue Plan of Care Treatment Plan: Bed Mobility, Education, Functional Activity Khadar, Functional Strength, Group Therapy, Gait, Safety, Therapeutic Exercise, Transfers Treatment Duration: Sep 24, 2023 Frequency: At least 5 of 7 days/Wk (IRF) Estimated Hrs Per Day: 1.5 hours per day Patient and/or Family Agrees t: Yes Safety Risks/Education Patient Education: Gait Training, Transfer Techniques, Correct Positioning Teaching Recipient: Patient, Friend Teaching Methods: Demonstration, Discussion Response to Teaching: Verbalize Understanding, Return Demonstration Time Time In: 0900 Time Out: 1000 DATE: Sep 17, 2023 Total Billed Treatment Time: 60 Total Billed Treatment Co-treat w/OT for 60m for Family Training 1, GT (15m) & FA x3 (45m) JESUS DONNELLY LEAD REFINER Sep 17, 2023 11:34
[2023-09-17] MEDS ORDERED: TORS20TA3 PO (13:49)
--- NOTE | 2023-09-17 13:53 | Progress Note ---
ANA CRISTINA HARDIN 09/17/23 1353: Progress Note 87 year old female, here for recovery from a C2 fracture, left acetabular fracture, and inferior ramus fracture. She has a history of Afib, CKD, HTN, and CHFpEF. On admission, she required minimal assistance to complete ADLs and was limited by her injuries. With treatment she is now completely independent and is gaining more mobility and confidence. She still reports having some chronic left lower back pain. MATILDE ALFREDO DO 09/18/23 0427: Supervisory-Addendum Brief Verification & Attestation Participated in pt care: history, MDM, physical Personally performed: exam, history, MDM, supervision of care Care discussed with: Medical Student Procedures: n/a Results interpretation: Verified all documentation Verification and Attestation of Medical Student E/M Service A medical student performed and documented this service in my presence. I reviewed and verified all information documented by the medical student and made modifications to such information, when appropriate. I personally performed the physical exam and medical decision making. Matilde Alfredo, Sep 18, 2023,04:27 ANA CRISTINA HARDIN Sep 17, 2023 13:53 MATILDE ALFREDO DO Sep 18, 2023 04:27
[2023-09-17 19:48] VITALS: BP 149/65
[2023-09-18] MEDS ORDERED: FAMO20TA5 PO (05:03)
[2023-09-18] MEDS ORDERED: OXC5T PO (05:03)
--- NOTE | 2023-09-18 05:05 | D/C HH Face to Face Order ---
D/C HH Face to Face Orders Reconcile Patient Problems Problems Reviewed?: Yes Instructions for Patient HH Patient Instructions/FollowUp: pcp 1 week Physician to follow Patient: pcp Discharge Diet for Home: No Restrictions Patient Problems: fall C spine fracture Patient Data-Allergies,Ht & Wt Patient Allergies: Coded Allergies: Penicillins (Verified Allergy, Unknown, hives, 09/09/23) Wbdxixh-LLV-ZwS Reductase Inhibitor (Verified Allergy, Unknown, muscle pain, 09/09/23) cephalexin (Verified Allergy, Unknown, hives, rash, 09/09/23) Home Health Need/Face to Face Date of Face to Face: Sep 18, 2023 Clinical Findings: Generalized weakness and fatigue, Pain with ambulation I have seen Pt vzbg-dv-xnwy: Yes Discharged To: Home Diagnosis/Conditions: Debility Patient is Homebound due to: [place] fall risk due to instabilty, Muscle weakness, Pain w/ambulation Homebound Status Due to the above stated illness, injury or surgical procedure (medical condition or diagnosis) and associated clinical findings, the patient is homebound because of his/her inability to leave home except with aid of a supportive device and/or person AND leaving the home requires a considerable and taxing effort or is medically contraindicated. Pt req the following assistanc: Walker Home Health Nursing Orders Home Health Services Order: Paper Sorter And Counter-Evaluate & Treat, Physical Therapy-Evaluate & Treat Certify Stmt I certify that this patient is under my care and that I, a nurse practitioner or a physician; a executive administrative assistant working with me, had a face to face encounter that - meets the physician face to face encounter requirements with this patient as dated. JULIÁN ALFREDO DO Sep 18, 2023 05:05
[2023-09-18] MEDS: ACETAMINOPHEN 325 MG TABLET PO SCH ×3 (05:32→17:55)
[2023-09-18] MEDS: POTASSIUM CHLORIDE 10 MEQ TABLET PO SCH (05:32)
[2023-09-18] MEDS: diphenhydrAMINE 25 MG TABLET PO PRN ×3 (05:32→21:18)
[2023-09-18] MEDS: CYANOCOBALAMIN 1,000 MCG TABLET PO SCH (05:32)
[2023-09-18] MEDS: CALCIUM CARBONATE 600 MG +VITAMIN D TABLET PO SCH (05:32)
[2023-09-18] MEDS: inSUlin ASPART 1 UNIT/0.01 ML (PER UNIT) SC SCH ×2 (06:03→16:39)
[2023-09-18 08:00] VITALS: BP 151/68
--- NOTE | 2023-09-18 08:01 | Occupational Ther Daily Note ---
OT Current Status-Daily Note Subjective Pt agreeable to OT Tx. Mental Status/Objective Attachments: Other-See Comments (c collar) ADL-Treatment Therapy Code Descriptions/Definitions Functional [place] Measure: 0=Not Assessed/NA 4=Minimal Assistance 1=Total Assistance 5=Supervision or Setup 2=Maximal Assistance 6=Modified [place] 3=Moderate Assistance 7=Complete IndependenceSCALE: Activities may be completed with or without assistive devices. 5-Svptbujytw-dnszvct completes the activity by him/herself with no assistance from a helper. 5-Set-up or Clean-up Assistance-helper sets up or cleans up; patient completes activity. [place] assists only prior to or following the activity. 4-Supervision or Touching Assistance-helper provides verbal cues and/or touching/steadying and/or contact guard assistance as patient completes a ctivity. Assistance may be provided throughout the activity or intermittently. 3-Partial/Moderate Assistance-helper does LESS THAN HALF the effort. [place] lifts, holds or supports trunk or limbs, but provides less than half the effort. 2-Substantial/Maximal Assistance-helper does MORE THAN HALF the effort. [place] lifts or holds trunk or limbs and provides more than half the effort. 1-Llwxjoikm-zdrlji does ALL the effort. Patient does none of the effort to complete the activity. Or, the assistance of 2 or more helpers is required for the patient to complete the activity. If activity was not attempted, code reason: 7-Patient Refused. 9-Not Applicable-not attempted and the patient did not perform the activity before the current illness, exacerbation or injury. 10-Not Attempted due to Environmental Limitations-(lack of equipment, weather restraints, etc.). 88-Not Attempted due to Medical Conditions or Safety Concerns. Eating (QC): 6 Oral Hygiene (QC): 6 Shower/Bathe Self (QC): 6 Upper Body Dressing (QC): 3 (IND with shirt. Assistance required with c collar.) Lower Body Dressing (QC): 4 (1 VC to sit down during task) On/Off Footwear: 4 (1 VC to sit down while donning slip on shoes.) Toileting Hygiene (QC): 6 Toilet Transfer (QC): 6 Other Treatment Pt used FWW to transfer into bathroom and onto toilet,IND. Pt completed toileting, IND, then transferred to AK, IND. Pt doffed clothes, using dressing stick as needed, IND. Pt completed shower, using LH sponge for LEs. Pt donned clothes, able to complete shirt, IND. Assistance required changing cervical collar pads. Pt able to don pants and slip on shoes using AE as needed, 1 VC with each in order to sit down for safety while threading LEs and putting feet into shoes. Pt stood at sink to complete oral care independently. Pt used FWW to return to recliner, IND. Post tx, pt in recliner, call light in reach and all needs met. Education OT Patient Education: Correct positioning, Energy conservation, Modified ADL techniques, Progress toward Goal/Update tx plan, Purpose of tx/functional act ivities, Rehab process Teaching Recipient: Patient Teaching Methods: Discussion Response to Teaching: Verbalize Understanding OT Short Term Goals Short Term Goals Time Frame: Sep 17, 2023 Shower/bathe self: 4 Putting on/taking off footwear: 4 OT Caustic Room Attendant Goals Caustic Room Attendant Goals Time Frame: Sep 26, 2023 Acute change in mental status: 0 Inattention: 0 Disorganized thinkin Altered level of consciousness: 0 Eating (QC): 6 (met) Oral Hygiene (QC): 6 (met) Toileting Hygiene (QC): 6 (met) Shower/Bathe Self (QC): 6 (met) Upper Body Dressing (QC): 6 (not met) Lower Body Dressing (QC): 6 (not met) On/Off Footwear (QC): 6 (slip on shoes only; not met) Additional Goals: 1-Demonstrate ADL Tasks, 2-Verbalize Understanding, 3- ImproveStrength/Khadar 1=Demonstrate adherence to instructed precautions during ADL tasks. 2=Patient will verbalize/demonstrate understanding of assistive devices/modifications for ADL. 3=Patient will improve strength/tolerance for activity to enable patient to perform ADL's. OT Education/Plan Problem List/Assessment Assessment: Decreased Activ Tolerance, Decreased UE Strength, Impaired I ADL's Discharge Recommendations Plan/Recommendations: Continue POC Therapy Discharge Recommendati: Post Acute OT Treatment Plan/Plan of Care Patient would benefit from OT for education, treatment and training to promote independence in ADL's, mobility, safety and/or upper extremity function for ADL's. Plan of Care: ADL Retraining, Functional Mobility, Group Exercise/Act as Ind, UE Funct Exercise/Act Treatment Duration: Sep 26, 2023 Frequency: At least 5 of 7 days/Wk (IRF) Estimated Hrs Per Day: 1.5 hours per day Agreement: Yes Rehab Potential: Good Time Start Time: 07:30 Stop Time: 09:00 DATE: Sep 18, 2023 Total Time Billed (hr/min): 90 Billed Treatment Time 1, ADL 6 COLIN FRIEND OT Sep 18, 2023 08:00
[2023-09-18] MEDS: FAMOTIDINE 20 MG TABLET PO SCH (09:00)
[2023-09-18] MEDS: DOCUSATE SODIUM 100 MG CAPSULE PO SCH ×2 (09:00→20:12)
[2023-09-18] MEDS: ALLOPURINOL 100 MG TABLET PO SCH (09:00)
[2023-09-18] MEDS: NALTREXONE 50 MG TABLET PO SCH (09:01)
[2023-09-18] MEDS: SENNA W/DOCUSATE TABLET PO SCH ×2 (09:01→20:13)
[2023-09-18] MEDS: LORATADINE 10 MG TABLET PO SCH (09:01)
[2023-09-18] MEDS: FERROUS SULFATE 325 MG (IRON) TABLET PO SCH (09:01)
[2023-09-18] MEDS: EMPAGLIFLOZIN 10 MG TABLET PO SCH (09:02)
[2023-09-18] MEDS: dilTIAZem ER 180 MG CAPSULE PO SCH (09:02)
[2023-09-18] MEDS: VALSARTAN 80 MG (DIOVAN) TAB PO SCH (09:02)
[2023-09-18] MEDS: APIXABAN 5 MG TABLET PO SCH ×2 (09:02→20:09)
[2023-09-18] MEDS: TRIAMCINOLONE 0.1% CR (KENALOG) 15 GM TUBE TP SCH ×2 (09:05→20:13)
--- NOTE | 2023-09-18 10:09 | PM&R Progress Note ---
Subjective HPI/CC On Admission Date Seen by Provider: Sep 18, 2023 Time Seen by Provider: 11:00 Subjective/Events-last exam 09/18/23: Patient doing well Ready for discharge tomorrow No falls 09/17/2023: Monitoring closely Pain controlled DC planned for DC to [place] No falls 09/16/2023: Patient doing well Gaining confidence Pain is controlled No falls 09/15/2023: Much improved overall Participation is good Therapy will focus on regaining function No falls 09/14/2023: Much improved status Less pain Doing well otherwise Trying to increase her confidence 09/13/2023: Doing well No pain reported until she moves hip No nausea Eating well 09/12/2023: Patient making slow recovery but improving Reviewed meds Pain is controlled No falls 09/11/2023: Patient doing well Denies any new problems Slowly ambulating Pain is controlled Bowels are moving 09/10/2023: Patient doing well Moving slowly Pain is controlled Reviewed labs and meds No other concerns Review of Systems General: Fatigue, Malaise Objective Exam Vital Signs Vital Signs Date Time Temp Pulse Resp B/P (MAP) Pulse Ox O2 Delivery O2 Flow Rate FiO2 09/18/23 20:16 Room Air 09/18/23 20:14 36.2 96 20 148/67 (94) 99 Capillary Refill : General Appearance: No Apparent Distress, WD/WN, Chronically ill, Thin, Other (frail, aspien collar in place) HEENT: PERRL/EOMI, Normal ENT Inspection, Pharynx Normal Neck: Full Range of Motion, Normal Inspection, Non Tender, Supple, Carotid Bruit Respiratory: Chest Non Tender, Lungs Clear, Normal Breath Sounds, No Accessory Muscle Use, No Respiratory Distress Cardiovascular: No Gallop, No JVD, No Murmur, Normal Peripheral Pulses, Irregularly Irregular Gastrointestinal: Normal Bowel Sounds, No Organomegaly, No Pulsatile Mass, Non Tender, Soft Back: Normal Inspection, No CVA Tenderness, No Vertebral Tenderness Extremity: Normal Capillary Refill, Normal Inspection, Normal Range of Motion (except left leg due to pain), Non Tender, No Calf Tenderness, Pedal Edema Neurologic/Psychiatric: Alert, Oriented x3, Normal Mood/Affect, python django developer II-XII Norm as Tested, Abnormal Gait, Motor Weakness (left leg) Skin: Normal Color, Warm/Dry, Other (venous stasis of legs) Lymphatic: No Adenopathy Results/Procedures Lab Patient resulted labs reviewed. FIM Transfers Therapy Code Descriptions/Definitions Functional [place] Measure: 0=Not Assessed/NA 4=Minimal Assistance 1=Total Assistance 5=Supervision or Setup 2=Maximal Assistance 6=Modified [place] 3=Moderate Assistance 7=Complete IndependenceSCALE: Activities may be completed with or without assistive devices. 7-Ienzexudij-wwpwysa completes the activity by him/herself with no assistance from a helper. 5-Set-up or Clean-up Assistance-helper sets up or cleans up; patient completes activity. [place] assists only prior to or following the activity. 4-Supervision or Touching Assistance-helper provides verbal cues and/or touching/steadying and/or contact guard assistance as patient completes activity. Assistance may be provided throughout the activity or intermittently. 3-Partial/Moderate Assistance-helper does LESS THAN HALF the effort. [place] lifts, holds or supports trunk or limbs, but provides less than half the effort. 2-Substantial/Maximal Assistance-helper does MORE THAN HALF the effort. [place] lifts or holds trunk or limbs and provides more than half the effort. 1-Fsnejsgyk-oyhjcx does ALL the effort. Patient does none of the effort to complete the activity. Or, the assistance of 2 or more helpers is required for the patient to complete the activity. If activity was not attempted, code reason: 7-Patient Refused. 9-Not Applicable-not attempted and the patient did not perform the activity before the current illness, exacerbation or injury. 10-Not Attempted due to Environmental Limitations-(lack of equipment, weather restraints, etc.). 88-Not Attempted due to Medical Conditions or Safety Concerns. Roll Left to Right (QC): 88 Sit to Lying (QC): 2 (Pt needs assistance moving B LE secondary to L hip fx.) Sit to Stand (QC): 6 Chair/Uen-ht-Xybcc Xfer(QC): 5 Car Transfer (QC): 3 (Pt xfer using FWW and Leg Histopath Tech, with [place]selmo for lifting B LE in/out of car.) Gait Training Does the Patient Walk?: Yes Distance: 45' x2 Walk 10 feet (QC): 6 Walk 50 ft with 2 Turns(QC): 5 Walk 150 ft (QC): 5 Walking 10ft/uneven surface-QC: 4 (CGA ) Gait Persons Needed: 1 Gait Assistive Device: FWW Wheelchair Training Does the Pt Use a Wheelchair?: No Wheel 50 ft with 2 turns (QC): 3 Wheel 150 ft (QC): 9 Type of Wheelchair: N/A Stair Training #of Steps: 1 1 Step (curb) (QC): 3 (Min A ) 4 Steps (QC): 88 (Pain, weakness) 12 Steps (QC): 88 (Pain, weakness) Balance Picking up an Object (QC): 4 (CGA with systems project manager ) ADL-Treatment Eating (QC): 6 Oral Hygiene (QC): 6 Shower/Bathe Self (QC): 6 Upper Body Dressing (QC): 3 (IND with shirt. Assistance required with c collar.) Lower Body Dressing (QC): 4 (1 VC to sit down during task) On/Off Footwear (QC): 4 (1 VC to sit down while donning slip on shoes.) Toileting Hygiene (QC): 6 Toilet Transfer (QC): 6 Assessment/Plan Assessment and Plan Assess & Plan/Chief Complaint Assessment: C2 lateral mass fracture non-surgical type placed in [place] collar Left acetabular fracture non-surgical type Inferior ramus fracture AF OAC Advanced age CKD HTN HLP Fall risk CHFpEF Plan: PT OT Pain control BM regimen Monitor closely 09/10/2023: Supportive senior care meds Pain control 09/11/2023: Supportive senior care meds 09/12/2023: Supportive care Pain is controlled 09/13/2023: Continue aggressive rehab 09/14/2023: Continue aggressive therapy 09/15/2023: Continue aggressive therapy 09/16/2023: Increase confidence More therapy 09/17/2023: Monitor closely Pain control 09/18/23: Supportive care (1) Closed C2 fracture JULIÁN ALFREDO DO Sep 18, 2023 10:09
--- NOTE | 2023-09-18 10:37 | Progress Note ---
ANA CRISTINA HARDIN 09/18/23 1037: Progress Note 87 year old female, here for recovery from a C2 fracture, left acetabular fracture, and inferior ramus fracture. She has a history of Afib, CKD, HTN, and CHFpEF. On admission, she required minimal assistance to complete ADLs and was limited by her injuries. With treatment she is now completely independent and is gaining more mobility and confidence. She still reports having increased itchiness despite benadryl use. Advised that this is most likely due to oxycodone. Patient otherwise improving. MATILDE ALFREDO DO 09/18/232050: Supervisory-Addendum Brief Verification & Attestation Participated in pt care: history, MDM, physical Personally performed: exam, history, MDM, supervision of care Care discussed with: Medical Student Procedures: n/a Results interpretation: Verified all documentation Verification and Attestation of Medical Student E/M Service A medical student performed and documented this service in my presence. I reviewed and verified all information documented by the medical student and made modifications to such information, when appropriate. I personally performed the physical exam and medical decision making. Matilde Alfredo, Sep 18, 2023,20:51 ANA CRISTINA HARDIN Sep 18, 2023 10:37 MATILDE ALFREDO DO Sep 18, 2023 20:51
--- NOTE | 2023-09-18 11:01 | IRF PAI BIMS ---
BIMS CAM BIMS Expression of Ideas and Wants: Without Difficulty Understanding Verbal Content: Understands Brief Interview/Mental Status: Yes IRF BRITTNY BIMS: IRF BRITTNY BIMS Response (Comments) Value Repitition of Three Words Three 3 Recalls Socks Yes, No Cue Required 2 Recalls Blue Yes, No Cue Required 2 Recalls Bed Yes, No Cue Required 2 Year Correct 3 Month Accurate Within 5 Days 2 Day Correct 1 Total 15 Patient Normally Able to Recal: Current Session, Location of own room, Staff Names and faces, That he/she in a hsp Should Staff Asses. Mental St.: No Memory/Recall Ability: Current Season, Location of Own Room, Staff Names and Faces, That He/She in [facility] Mental Status Change/Baseline: 0 Inattention: 0 Disorganized thinkin Altered level of consciousness: 0 COLIN FRIEND OT Sep 18, 2023 11:01
--- NOTE | 2023-09-18 13:40 | Physical Therapy Daily Note ---
PT Daily Note-Current Subjective Pt presents sitting in recliner /c B feet on floor. Pt c/o pain in L hip 03/10. Pt agreed to tx. Pain Section J - Health Conditions 1. Rarely or not at all 2. Occasionally 3. Frequently 4. Almost constantly 8. Unable to answer Pain Effect on Sleep: 2 Pain Interference with Therapy: 2 Pain Interference w/Day-to-Day: 2 Transfers SCALE: Activities may be completed with or without assistive devices. 0-Svxnavtgak-kmrwtku completes the activity by him/herself with no assistance from a helper. 5-Set-up or Clean-up Assistance-helper sets up or cleans up; patient completes activity. [place] assists only prior to or following the activity. 4-Supervision or Touching Assistance-helper provides verbal cues and/or touching/steadying and/or contact guard assistance as patient completes activity. Assistance may be provided throughout the activity or intermittently. 3-Partial/Moderate Assistance-helper does LESS THAN HALF the effort. [place] lifts, holds or supports trunk or limbs, but provides less than half the effort. 2-Substantial/Maximal Assistance-helper does MORE THAN HALF the effort. [place] lifts or holds trunk or limbs and provides more than half the effort. 4-Gywcgisag-svrgki does ALL the effort. Patient does none of the effort to complete the activity. Or, the assistance of 2 or more helpers is required for the patient to complete the activity. If activity was not attempted, code reason: 7-Patient Refused. 9-Not Applicable-not attempted and the patient did not perform the activity before the current illness, exacerbation or injury. 10-Not Attempted due to Environmental Limitations-(lack of equipment, weather restraints, etc.). 88-Not Attempted due to Medical Conditions or Safety Concerns. Roll Left & Right (QC): 3 (Elisa/ModA based on fatigue) Sit to Lying (QC): 2 (ModA/MaxA assist to lift B LE on to bed) Lying to Sitting/Side of Bed(Q: 2 (ModA/MaxA assist to lift B LE's) Sit to Stand (QC): 6 Chair/Mho-bp-Ddcws Xfer(QC): 6 Toilet Transfer (QC): 6 Car Transfer (QC): 3 ([place]isa/ModA assist to lift B LE's) Weight Bearing Right Lower Extremity: Right Weight Bearing/Tolerated Left Lower Extremity: Left Weight Bearing/Tolerated Cervical precautions: no lifting >2lbs, no pushing/pulling, or strenuous exercise for 4 weeks. No driving. WBAT on LEs. Wear neck collar at all times (change pads after getting out of the shower; keep head still while pads are being changed) Gait Training Does the Patient Walk?: Yes Walk 10 feet (QC): 6 Walk 50 ft with 2 Turns(QC): 4 Walk 150 ft (QC): 4 Walking 10ft/uneven surface-QC: 4 Gait Assistive Device: FWW Pt amb 160' x 2 /c FWW and SBA for safety and minimal vc's. Pt amb has pro gressed to a fair sherice, good/equal step length, slight or minimal antalgic gait deviation. Wheelchair Training Does the Pt Use a Wheelchair?: No Stair Training 1 Step (curb) (QC): 88 (Did not attempt due to no stairs at [facility]) 4 Steps (QC): 88 (Did not attempt due to no stairs at [facility]) 12 Steps (QC): 09 Balance Picking up an Object (QC): 6 Exercises NuStep Minutes: 15 NuStep Workload: 3 Treatments Pt conducted all QC checks. Pt transferred from recliner, toilet and bed /c FWW and SBA for safety. Pt amb room<>gym 160' x 2 with FWW and SBA. Pt biked on NuStep x 15m /c workload 3. Pt was left in recliner with call light in lap, lunch on table in front of her and all needs met. Assessment Current Status: Good Progress Pt's amb is improving with a fair sherice, equal/reciprocal step length and improving antalgic gait deviations. Pt has progressed to Independent with sit<>stand from recliner or toilet to FWW. Pt progressed amb of short distances (10') with FWW (mod I) with no LOB. Pt is limited by pain and confidence. PT Senior Telecommunications Consultant Goals [facility] Goals PT Senior Telecommunications Consultant Goals Time Frame: Sep 24, 2023 Roll Left & Right (QC): 6 (Pt will be Mod I with functional mobility ) Sit to Lying (QC): 6 (Pt will be Mod I with functional mobility ) Lying-Sitting on Side/Bed(QC): 6 (Pt will be Mod I with functional mobility ) Sit to Stand (QC): 6 (Pt will be Mod I with functional mobility ) Chair/Fhm-cd-Vbmhs Xfer(QC): 6 (Pt will be Mod I with functional mobility ) Toilet Transfer (QC): 6 (Pt will be Mod I with functional mobility ) Car Transfer (QC): 6 (Pt will be Mod I with functional mobility ) Does the Patient Walk: Yes Walk 10 feet (QC): 6 (Pt will be Mod I with functional mobility ) Walk 50ft with 2 Turns (QC): 6 (Pt will be Mod I with functional mobility ) Walk 150 ft (QC): 6 (Pt will be Mod I with functional mobility ) Walking 10ft on Uneven Surface: 6 (Pt will be Mod I with functional mobility ) 1 Step (curb) (QC): 6 (Pt will be Mod I with functional mobility ) 4 Steps (QC): 6 (Pt will be Mod I with functional mobility ) 12 Steps (QC): 9 (Pt did not do at PLOF) Picking up an Object (QC): 6 (Pt will be Mod I with functional mobility ) Does the Pt use WC or Scooter?: No Wheel 50 feet with 2 turns (QC: 9 Type: N/A Wheel 150 feet: 9 Type: N/A PT Plan Problem List Problem List: Functional Strength, Gait, ROM Treatment/Plan Treatment Plan: Continue Plan of Care Treatment Plan: Bed Mobility, Education, Functional Activity Khadar, Functional Strength, Group Therapy, Gait, Safety, Therapeutic Exercise, Transfers Treatment Duration: Sep 24, 2023 Frequency: At least 5 of 7 days/Wk (IRF) Estimated Hrs Per Day: 1.5 hours per day Patient and/or Family Agrees t: Yes Safety Risks/Education Patient Education: Transfer Techniques Teaching Recipient: Patient Teaching Methods: Demonstration, Discussion Response to Teaching: Verbalize Understanding, Return Demonstration Time Time In: 1030 Time Out: 1200 DATE: Sep 18, 2023 Total Billed Treatment Time: 90 Total Billed Treatment 1, FA3 (45m), GT2 (30m), EX (15m) FAWN CONNOR CHIP SEPARATOR Sep 18, 2023 13:40
[2023-09-18 20:14] VITALS: BP 148/67
[2023-09-18] MEDS: oxyCODONE IMMEDIATE RELEASE 5 MG TABLET PO PRN (21:18)
[2023-09-19] MEDS: ACETAMINOPHEN 325 MG TABLET PO SCH ×3 (01:19→12:05)
--- NOTE | 2023-09-19 04:53 | Discharge Summary ---
Diagnosis/Chief Complaint Date of Admission Sep 09, 2023 at 16:11 Date of Discharge Discharge Date: Sep 19, 2023 Discharge Diagnosis Assessment: C2 lateral mass fracture non-surgical type placed in [place] collar Left acetabular fracture non-surgical type Inferior ramus fracture AF OAC Advanced age CKD HTN HLP Fall risk CHFpEF Plan: PT OT Pain control BM regimen Monitor closely 09/10/2023: Supportive skilled nursing meds Pain control 09/11/2023: Supportive skilled nursing meds 09/12/2023: Supportive care Pain is controlled 09/13/2023: Continue aggressive rehab 09/14/2023: Continue aggressive therapy 09/15/2023: Continue aggressive therapy 09/16/2023: Increase confidence More therapy 09/17/2023: Monitor closely Pain control 09/18/23: Supportive care (1) Closed C2 fracture Discharge Summary Discharge Physical Examination Allergies: Coded Allergies: Penicillins (Verified Allergy, Unknown, hives, 09/09/23) [id number] Reductase Inhibitor (Verified Allergy, Unknown, muscle pain, 09/09/23) cephalexin (Verified Allergy, Unknown, hives, rash, 09/09/23) Vitals & I&Os Vital Signs Date Time Temp Pulse Resp B/P (MAP) Pulse Ox O2 Delivery O2 Flow Rate FiO2 09/19/23 08:44 Room Air 09/19/23 07:39 36.1 110 16 139/65 (89) 96 General Appearance: Alert, Oriented X3, Cooperative Respiratory: Clear to Auscultation Cardiovascular: Regular Rate Psych/Mental Status: Mental Status NL Hospital Course Was the Problem List Reviewed?: Yes Radha is an 87 year old female who completed her hospital stay for recovery from a C2 fracture, left acetabular fracture, and inferior ramus fracture. She has a history of Afib, CKD, HTN, and CHFpEF. Her pain has been well managed with oxycodone, despite having some itchiness which is improved with benadryl. She has remained on home meds during her hospital stay and has been stable. On admission, she required minimal assistance to complete ADLs and was limited by her injuries. With PT/OT she is now completely independent and is gaining more mobility and confidence. She feels ready to go back to assisted living. ANA CRISTINA HARDIN Sep 19, 2023 09:22 Labs (last 24 hrs) Laboratory Tests 09/10/23 07:05: White Blood Count 8.9, Red Blood Count 3.06L, Hemoglobin 9.4L, Hematocrit 30L, Mean Corpuscular Volume 99, Mean Corpuscular Hemoglobin 31, Mean Corpuscular Hemoglobin Concent 31L, Red Cell Distribution Width 25.4H, Platelet Count 437H, Mean Platelet Volume 10.8, Immature Granulocyte % (Auto) 1, Neutrophils (%) (Auto) 64, Lymphocytes (%) (Auto) 9L, Monocytes (%) (Auto) 10, Eosinophils (%) (Auto) 14H, Basophils (%) (Auto) 2, Neutrophils # (Auto) 5.7, Lymphocytes # (Auto) 0.8L, Monocytes # (Auto) 0.9, Eosinophils # (Auto) 1.2H, Basophils # (Auto) 0.2H, Immature Granulocyte # (Auto) 0.1, Neutrophils % (Manual) 67, Lymphocytes % (Manual) 8, Monocytes % (Manual) 10, Eosinophils % (Manual) 12, Basophils % (Manual) 0, Band Neutrophils 3, Poikilocytosis SLIGHT, Anisocytosis MODERATE, Sodium Level 139, Potassium Level 3.6, Chloride Level 102, Carbon Dioxide Level 25, Anion Gap 12, Blood Urea Nitrogen 55H, Creatinine 1.26, Estimat Glomerular Filtration Rate 41, BUN/Creatinine Ratio 44, Glucose Level 99, Calcium Level 8.8, Corrected Calcium 9.3, Iron Level 75, Total Bilirubin 0.9, Aspartate Amino Transf (AST/SGOT) 18, Alanine Aminotransferase (ALT/SGPT) 12, Alkaline Phosphatase 53, Total Protein 6.8, Albumin 3.4, Vitamin B12 Level >2000H 09/10/23 15:37: Glucometer 144H 09/11/23 06:13: Glucometer 133H 09/11/23 15:35: Glucometer 154H 09/12/23 06:03: Glucometer 117H 09/12/23 16:17: Glucometer 111H 09/13/23 05:07: Glucometer 110 09/13/23 12:04: Glucometer 104 09/13/23 16:23: Glucometer 107 09/14/23 06:14: Glucometer 93 09/14/23 15:33: Glucometer 121H 09/15/23 05:36: White Blood Count 10.3, Red Blood Count 2.75L, Hemoglobin 8.3L, Hematocrit 27L, Mean Corpuscular Volume 97, Mean Corpuscular Hemoglobin 30, Mean Corpuscular Hemoglobin Concent 31L, Red Cell Distribution Width 26.0H, Platelet Count 510H, Mean Platelet Volume 10.6, Immature Granulocyte % (Auto) 1, Neutrophils (%) (Auto) 63, Lymphocytes (%) (Auto) 9L, Monocytes (%) (Auto) 10, Eosinophils (%) (Auto) 16H, Basophils (%) (Auto) 2, Neutrophils # (Auto) 6.5, Lymphocytes # ( Auto) 0.9L, Monocytes # (Auto) 1.0, Eosinophils # (Auto) 1.7H, Basophils # (Auto) 0.2H, Immature Granulocyte # (Auto) 0.1, Sodium Level 141, Potassium Level 4.5, Chloride Level 112H, Carbon Dioxide Level 21, Anion Gap 8, Blood Urea Nitrogen 43H, Creatinine 1.18, Estimat Glomerular Filtration Rate 45, BUN/Creatinine Ratio 36, Glucose Level 106H, Calcium Level 8.8, Corrected Calcium 9.3, Total Bilirubin 0.5, Aspartate Amino Transf (AST/SGOT) 16, Alanine Aminotransferase (ALT/SGPT) 15, Alkaline Phosphatase 87, Total Protein 6.4, Albumin 3.4 09/15/23 15:29: Glucometer 111H 09/16/23 06:22: Glucometer 97 09/16/23 16:15: Glucometer 120H 09/17/23 05:29: Glucometer 102 09/17/23 16:57: Glucometer 108 09/18/23 06:02: Glucometer 114H 09/18/23 16:17: Glucometer 104 09/19/23 05:55: Glucometer 97 Pending Labs Laboratory Tests 09/10/23 07:05: White Blood Count 8.9, Red Blood Count 3.06, Hemoglobin 9.4, Hematocrit 30, Mean Corpuscular Volume 99, Mean Corpuscular Hemoglobin 31, Mean Corpuscular Hemoglobin Concent 31, Red Cell Distribution Width 25.4, Platelet Count 437, Mean Platelet Volume 10.8, Immature Granulocyte % (Auto) 1, Neutrophils (%) (Auto) 64, Lymphocytes (%) (Auto) 9, Monocytes (%) (Auto) 10, Eosinophils (%) (Auto) 14, Basophils (%) (Auto) 2, Neutrophils # (Auto) 5.7, Lymphocytes # (Auto) 0.8, Monocytes # (Auto) 0.9, Eosinophils # (Auto) 1.2, Basophils # (Auto) 0.2, Immature Granulocyte # (Auto) 0.1, Neutrophils % (Manual) 67, Lymphocytes % (Manual) 8, Monocytes % (Manual) 10, Eosinophils % (Manual) 12, Basophils % (Manual) 0, Band Neutrophils 3, Poikilocytosis SLIGHT, Anisocytosis MODERATE, Sodium Level 139, Potassium Level 3.6, Chloride Level 102, Carbon Dioxide Level 25, Anion Gap 12, Blood Urea Nitrogen 55, Creatinine 1.26, Estimat Glomerular Filtration Rate 41, BUN/Creatinine Ratio 44, Glucose Level 99, Calcium Level 8.8, Corrected Calcium 9.3, Iron Level 75, Total Bilirubin 0.9, Aspartate Amino Transf (AST/SGOT) 18, Alanine Aminotransferase (ALT/SGPT) 12, Alkaline Phosphatase 53, Total Protein 6.8, Albumin 3.4, Vitamin B12 Level >2000 09/10/23 15:37: Glucometer 144 09/11/23 06:13: Glucometer 133 09/11/23 15:35: Glucometer 154 09/12/23 06:03: Glucometer 117 09/12/23 16:17: Glucometer 111 09/13/23 05:07: Glucometer 110 09/13/23 12:04: Glucometer 104 09/13/23 16:23: Glucometer 107 09/14/23 06:14: Glucometer 93 09/14/23 15:33: Glucometer 121 09/15/23 05:36: White Blood Count 10.3, Red Blood Count 2.75, Hemoglobin 8.3, Hematocrit 27, Mean Corpuscular Volume 97, Mean Corpuscular Hemoglobin 30, Mean Corpuscular Hemoglobin Concent 31, Red Cell Distribution Width 26.0, Platelet Count 510, Mean Platelet Volume 10.6, Immature Granulocyte % (Auto) 1, Neutrophils (%) (Auto) 63, Lymphocytes (%) (Auto) 9, Monocytes (%) (Auto) 10, Eosinophils (%) (Auto) 16, Basophils (%) (Auto) 2, Neutrophils # (Auto) 6.5, Lymphocytes # (Auto) 0.9, Monocytes # (Auto) 1.0, Eosinophils # (Auto) 1.7, Basophils # (Auto) 0.2, Immature Granulocyte # (Auto) 0.1, Sodium Level 141, Potassium Level 4.5, Chloride Level 112, Carbon Dioxide Level 21, Anion Gap 8, Blood Urea Nitrogen 43, Creatinine 1.18, Estimat Glomerular Filtration Rate 45, BUN/Creatinine Ratio 36, Glucose Level 106, Calcium Level 8.8, Corrected Calcium 9.3, Total Bilirubin 0.5, Aspartate Amino Transf (AST/SGOT) 16, Alanine Aminotransferase (ALT/SGPT) 15, Alkaline Phosphatase 87, Total Protein 6.4, Albumin 3.4 09/15/23 15:29: Glucometer 111 09/16/23 06:22: Glucometer 97 09/16/23 16:15: Glucometer 120 09/17/23 05:29: Glucometer 102 09/17/23 16:57: Glucometer 108 09/18/23 06:02: Glucometer 114 09/18/23 16:17: Glucometer 104 09/19/23 05:55: Glucometer 97 Discharge Home Medications: Active Scripts Active Famotidine 20 Mg Tablet 20 Mg PO DAILY Oxyir Tablet (Oxycodone HCl) 5 Mg Tab 5 Mg PO Q4H PRN Reported Torsemide 20 Mg Tablet 40 Mg PO DAILY TAKES 2 (20MG) TABS Xolair (Omalizumab) 150 Mg/Ml Syringe 300 Mg SQ EVERY 30 DAYS Valsartan 320 Mg Tablet 320 Mg PO DAILY Naltrexone HCl 50 Mg Tablet 12.5 Mg PO DAILY TAKES OF A 50MG TAB Ferrous Sulfate 325 Mg (65 Mg Iron) Tablet 325 Mg PO DAILY Eliquis (Apixaban) 5 Mg Tablet 5 Mg PO BID Farxiga (Dapagliflozin Propanediol) 10 Mg Tablet 10 Mg PO DAILY Vitamin B-12 (Cyanocobalamin (Vitamin B-12)) 500 Mcg Tablet 2,000 Mcg PO DAILY TAKES 4 (500MCG) TABS Co Q-10 (Ubidecarenone) 10 Mg Capsule 10 Mg PO DAILY Cetirizine HCl 10 Mg Tablet 10 Mg PO DAILY Calcium Citrate-Vit D3 Tablet (Calcium Citrate/Vitamin D3) 315MG-6.25 Tablet 1 Each PO DAILY Miralax (Polyethylene Glycol 3350) 17 Gram Powd.pack 17 Gm PO DAILY PRN Cardizem Cd (Diltiazem HCl) 180 Mg Cap.er.24h 180 Mg PO DAILY Allopurinol 100 Mg Tablet 100 Mg PO DAILY Instructions to patient/family Please see electronic discharge instructions given to patient. Diagnosis/Problems Diagnosis/Problems (1) Closed C2 fracture JULIÁN ALFREDO DO Sep 19, 2023 04:53
[2023-09-19] MEDS: diphenhydrAMINE 25 MG TABLET PO PRN (05:54)
[2023-09-19] MEDS: CYANOCOBALAMIN 1,000 MCG TABLET PO SCH (05:54)
[2023-09-19] MEDS: CALCIUM CARBONATE 600 MG +VITAMIN D TABLET PO SCH (05:55)
[2023-09-19] MEDS: inSUlin ASPART 1 UNIT/0.01 ML (PER UNIT) SC SCH (05:55)
[2023-09-19] MEDS: POTASSIUM CHLORIDE 10 MEQ TABLET PO SCH (05:55)
[2023-09-19 07:39] VITALS: BP 139/65
[2023-09-19] MEDS: APIXABAN 5 MG TABLET PO SCH (08:01)
[2023-09-19] MEDS: LORATADINE 10 MG TABLET PO SCH (08:01)
[2023-09-19] MEDS: FAMOTIDINE 20 MG TABLET PO SCH (08:01)
[2023-09-19] MEDS: dilTIAZem ER 180 MG CAPSULE PO SCH (08:01)
[2023-09-19] MEDS: NALTREXONE 50 MG TABLET PO SCH (08:01)
[2023-09-19] MEDS: EMPAGLIFLOZIN 10 MG TABLET PO SCH (08:02)
[2023-09-19] MEDS: VALSARTAN 80 MG (DIOVAN) TAB PO SCH (08:03)
[2023-09-19] MEDS: FERROUS SULFATE 325 MG (IRON) TABLET PO SCH (08:03)
[2023-09-19] MEDS: ALLOPURINOL 100 MG TABLET PO SCH (08:03)
[2023-09-19] MEDS: oxyCODONE IMMEDIATE RELEASE 5 MG TABLET PO PRN (08:03)
[2023-09-19] MEDS: DOCUSATE SODIUM 100 MG CAPSULE PO SCH (08:05)
[2023-09-19] MEDS: SENNA W/DOCUSATE TABLET PO SCH (08:06)
[2023-09-19] MEDS: TRIAMCINOLONE 0.1% CR (KENALOG) 15 GM TUBE TP SCH (08:06)
--- NOTE | 2023-09-19 08:23 | Therapy Team Discharge Summary ---
Therapy Discharge Summary Discharge Recommendations Date of Discharge Therapy D/C Recommendations: Occupational Therapy Home Care Physical Therapy Roll Left to Right (QC): 3 (Elisa/ModA based on fatigue) Sit to Lying (QC): 2 (ModA/MaxA assist to lift B LE on to bed) Lying to Sitting/Side of Bed(Q: 2 (ModA/MaxA assist to lift B LE's) Sit to Stand (QC): 6 Chair/Jgv-mu-Tzuin Xfer(QC): 6 Toilet Transfer (QC): 5 Car Transfer (QC): 3 (Elisa/ModA assist to lift B LE's) Does the Patient Walk: Yes Mode of Locomotion: Walk Anticipated Mode of Locomotion: Walk Walk 10 feet (QC): 6 Walk 50 ft with 2 Turns(QC): 4 Walk 150 ft (QC): 4 Walking 10ft on uneven surface: 4 Gait Assistive Device: FWW Does the Pt Use a Wheelchair: No Wheel 50 ft with 2 turns (QC): 3 Wheel 150 ft (QC): 9 Type of Wheelchair: N/A #of Steps: 1 1 Step (curb) (QC): 88 (Did not attempt due to no stairs at [facility]) 4 Steps (QC): 88 (Did not attempt due to no stairs at [facility]) 12 Steps (QC): 09 Walking Assistive Device: Walker Balance Sitting Static: Good Balance Sitting Dynamic: Good Balance-Standing Static: Fair Picking up an Object (QC): 6 Occupational Therapy Pt admitted to ARU s/p C2 cervical fx & left acetabular fx. At OF, pt was in dependent with ADLs and mobility using a walker, living at [facility]. Upon initial evaluation, pt was independent with eating, required set up with oral care, min- mod A showering and upper body dressing, max A footwear and CGA LBD and toileting. OT tx focused on increasing BUE activity tolerance and increasing safety and independence with ADLS and functional mobility. Pt made good progress towards goals, attaining all LTGs except UBD/LBD and footwear. Pt scheduled to discharge to [facility] today, d/c from OT. Decreased Activ Tolerance, Decreased UE Strength, Impaired I ADL's Eating (QC): 6 Oral Hygiene (QC): 6 Shower/Bathe Self (QC): 6 Upper Body Dressing (QC): 3 (IND with shirt. Assistance required with c collar.) Lower Body Dressing (QC): 4 (1 VC to sit down during task) On/Off Footwear (QC): 4 (1 VC to sit down while donning slip on shoes.) Toileting Hygiene (QC): 6 PT Assisted Goals Assisted Goals PT Assisted Goals Time Frame: Sep 24, 2023 Roll Left to Right (QC): 6 (Pt will be Mod I with functional mobility ) Sit to Lying (QC): 6 (Pt will be Mod I with functional mobility ) Lying-Sitting on Side/Bed(QC): 6 (Pt will be Mod I with functional mobility ) Sit to Stand (QC): 6 (Pt will be Mod I with functional mobility ) Chair/Gdp-bj-Nmvft Xfer(QC): 6 (Pt will be Mod I with functional mobility ) Toilet/Commode Transfer (QC): 6 (Pt will be Mod I with functional mobility ) Car Transfer (QC): 6 (Pt will be Mod I with functional mobility ) Does the Patient Walk: Yes Walk 10 feet (QC): 6 (Pt will be Mod I with functional mobility ) Walk 10ft-Uneven Surface(QC): 6 (Pt will be Mod I with functional mobility ) Walk 50ft with 2 Turns (QC): 6 (Pt will be Mod I with functional mobility ) Walk 150 ft (QC): 6 (Pt will be Mod I with functional mobility ) Does the Pt use WC or Scooter?: No Wheel 50 feet with 2 turns (QC: 9 Type: N/A Wheel 150 feet: 9 Type: N/A 1 Step (curb) (QC): 6 (Pt will be Mod I with functional mobility ) 4 Steps (QC): 6 (Pt will be Mod I with functional mobility ) 12 Steps (QC): 9 (Pt did not do at PLOF) Picking up an Object (QC): 6 (Pt will be Mod I with functional mobility ) OT [place] Erector Helper Goals [place] Erector Helper Goals Time Frame: Sep 26, 2023 Acute change in mental status: 0 Inattention: 0 Disorganized thinkin Altered level of consciousness: 0 Eating (QC): 6 (met) Oral Hygiene (QC): 6 (met) Toileting Hygiene (QC): 6 (met) Shower/Bathe Self (QC): 6 (met) Upper Body Dressing (QC): 6 (not met) Lower Body Dressing (QC): 6 (not met) On/Off Footwear (QC): 6 (slip on shoes only; not met) Additional Goals: 1-Demonstrate ADL Tasks, 2-Verbalize Understanding, 3-ImproveStrength/Khadar 1=Demonstrate adherence to instructed precautions during ADL tasks. 2=Patient will verbalize/demonstrate understanding of assistive devices/modifications for ADL. 3=Patient will improve strength/tolerance for activity to enable patient to perform ADL's. COLIN FRIEND OT Sep 19, 2023 08:22
--- NOTE | 2023-09-19 09:22 | Progress Note ---
ANA CRISTINA HARDIN 09/19/23921: Progress Note Radha is an 87 year old female who completed her hospital stay for recovery from a C2 fracture, left acetabular fracture, and inferior ramus fracture. She has a history of Afib, CKD, HTN, and CHFpEF. Her pain has been well managed with oxycodone, despite having some itchiness which is improved with benadryl. She has remained on home meds during her hospital stay and has been stable. On admission, she required minimal assistance to complete ADLs and was limited by her injuries. With PT/OT she is now completely independent and is gaining more mobility and confidence. She feels ready to go back to assisted living. MATILDE ALFREDO DO 09/19/23 1809: Supervisory-Addendum Brief Verification & Attestation Participated in pt care: history, MDM, physical Personally performed: exam, history, MDM, supervision of care Care discussed with: Medical Student Procedures: n/a Results interpretation: Verified all documentation Verification and Attestation of Medical Student E/M Service A medical student performed and documented this service in my presence. I reviewed and verified all information documented by the medical student and made modifications to such information, when appropriate. I personally performed the physical exam and medical decision making. Matilde Alfredo, Sep 19, 2023,18:09 ANA CRISTINA HARDIN Sep 19, 2023 09:22 MATILDE ALFREDO DO Sep 19, 2023 18:09
--- NOTE | 2023-09-19 11:51 | Therapy Team Discharge Summary ---
Therapy Discharge Summary Discharge Recommendations Date of Discharge 09/19/23 Therapy D/C Recommendations: Occupational Therapy Home Care, Physical Therapy Home Care Physical Therapy Pt is an 87 y/o female who on 09/06/23 had a ground level fall due to walker getting caught on carpet at restaurant. Pt transferred to ED where imaging revealed C2 lateral mass fx (non-surgical) placed in [place] collar, L acetabular fx (non surgical), and inferior ramus fx (non surgical). Pt transferred to [facility] 09/09/23. At [facility], pt was Ind with the 3WW. Pt did not negotiate stairs at [facility]. Upon PT eval, pt was CGA/Min A for functional transfers and bed mobility. Pt was only able to walk 50ft and required Min A for 1 step. PT focused on B LE strength, endurance, functional mobility, balance/safety, and overall Ind. Pt progressed well with PT and met most set goals. Pt was discharged from [facility] to [facility] (prior living situation) on 09/19/23 with PT at the facility; D/C from PT at this time. Roll Left to Right (QC): 3 (Elisa/ModA based on fatigue) Sit to Lying (QC): 2 (ModA/MaxA assist to lift B LE on to bed) Lying to Sitting/Side of Bed(Q: 2 (ModA/MaxA assist to lift B LE's) Sit to Stand (QC): 6 Chair/Cea-mf-Pludq Xfer(QC): 6 Toilet Transfer (QC): 5 Car Transfer (QC): 3 (Elisa/ModA assist to lift B LE's) Does the Patient Walk: Yes Mode of Locomotion: Walk Anticipated Mode of Locomotion: Walk Walk 10 feet (QC): 6 Walk 50 ft with 2 Turns(QC): 4 Walk 150 ft (QC): 4 Walking 10ft on uneven surface: 4 Gait Assistive Device: FWW Does the Pt Use a Wheelchair: No Wheel 50 ft with 2 turns (QC): 3 Wheel 150 ft (QC): 9 Type of Wheelchair: N/A #of Steps: 1 1 Step (curb) (QC): 88 (Did not attempt due to no stairs at [facility]) 4 Steps (QC): 88 (Did not attempt due to no stairs at [facility]) 12 Steps (QC): 09 Walking Assistive Device: Walker Balance Sitting Static: Good Balance Sitting Dynamic: Good Balance-Standing Static: Fair Picking up an Object (QC): 6 Occupational Therapy Decreased Activ Tolerance, Decreased UE Strength, Impaired I ADL's Eating (QC): 6 Oral Hygiene (QC): 6 Shower/Bathe Self (QC): 6 Upper Body Dressing (QC): 3 (IND with shirt. Assistance required with c collar.) Lower Body Dressing (QC): 4 (1 VC to sit down during task) On/Off Footwear (QC): 4 (1 VC to sit down while donning slip on shoes.) Toileting Hygiene (QC): 6 PT Nursing Home Goals Administrative Library Assistant Goals PT Administrative Library Assistant Goals Time Frame: Sep 24, 2023 Roll Left to Right (QC): 6 (Pt will be Mod I with functional mobility ) Sit to Lying (QC): 6 (Pt will be Mod I with functional mobility ) Lying-Sitting on Side/Bed(QC): 6 (Pt will be Mod I with functional mobility ) Sit to Stand (QC): 6 (Pt will be Mod I with functional mobility ) Chair/Oco-xq-Slkbb Xfer(QC): 6 (Pt will be Mod I with functional mobility ) Toilet/Commode Transfer (QC): 6 (Pt will be Mod I with functional mobility ) Car Transfer (QC): 6 (Pt will be Mod I with functional mobility ) Does the Patient Walk: Yes Walk 10 feet (QC): 6 (Pt will be Mod I with functional mobility ) Walk 10ft-Uneven Surface(QC): 6 (Pt will be Mod I with functional mobility ) Walk 50ft with 2 Turns (QC): 6 (Pt will be Mod I with functional mobility ) Walk 150 ft (QC): 6 (Pt will be Mod I with functional mobility ) Does the Pt use WC or Scooter?: No Wheel 50 feet with 2 turns (QC: 9 Type: N/A Wheel 150 feet: 9 Type: N/A 1 Step (curb) (QC): 6 (Pt will be Mod I with functional mobility ) 4 Steps (QC): 6 (Pt will be Mod I with functional mobility ) 12 Steps (QC): 9 (Pt did not do at PLOF) Picking up an Object (QC): 6 (Pt will be Mod I with functional mobility ) OT Administrative Library Assistant Goals Administrative Library Assistant Goals Time Frame: Sep 26, 2023 Acute change in mental status: 0 Inattention: 0 Disorganized thinkin Altered level of consciousness: 0 Eating (QC): 6 (met) Oral Hygiene (QC): 6 (met) Toileting Hygiene (QC): 6 (met) Shower/Bathe Self (QC): 6 (met) Upper Body Dressing (QC): 6 (not met) Lower Body Dressing (QC): 6 (not met) On/Off Footwear (QC): 6 (slip on shoes only; not met) Additional Goals: 1-Demonstrate ADL Tasks, 2-Verbalize Understanding, 3-ImproveStrength/Khadar 1=Demonstrate adherence to instructed precautions during ADL tasks. 2=Patient will verbalize/demonstrate understanding of assistive devices/modifications for ADL. 3=Patient will improve strength/tolerance for activity to enable patient to perform ADL's. ELLY FLORIAN PT Sep 19, 2023 11:51
== END 2023-09-19 12:56 | DRG 560 ==
PROVIDERS: ADMIT Internal Medicine; ATTEND Internal Medicine
DX: S12.100D Unspecified displaced fracture of second cervical vertebra, subsequent encounter for fracture with routine healing (principal); I13.0 Hypertensive heart and chronic kidney disease with heart failure and stage 1 through stage 4 chronic kidney disease, or unspecified chronic kidney disease; I48.19 Other persistent atrial fibrillation; I50.32 Chronic diastolic (congestive) heart failure; S32.402D Unspecified fracture of left acetabulum, subsequent encounter for fracture with routine healing; S32.592D Other specified fracture of left pubis, subsequent encounter for fracture with routine healing; E11.22 Type 2 diabetes mellitus with diabetic chronic kidney disease; N18.32 Chronic kidney disease, stage 3b; Z91.81 History of falling; R54 Age-related physical debility; I87.8 Other specified disorders of veins; Z79.01 Long term (current) use of anticoagulants; Z79.899 Other long term (current) drug therapy; W01.0XXD Fall on same level from slipping, tripping and stumbling without subsequent striking against object, subsequent encounter; Y92.511 Restaurant or cafe as the place of occurrence of the external cause
CPT/HCPCS: 36415; 80053; 82607; 82947; 83540; 85007; 85025; 85027